=== PATIENT | female | born 1995 | race Caucasian/White ===

== ENCOUNTER 2023-06-04 09:18 | Outpatient (AMB) | payer OTHER, SELFPAY ==
[2023-06-04 10:00] VITALS: BP 90/56; BMI 26.1
--- NOTE | 2023-06-04 10:00 | MHC.OFFVIS ---
Intake Vital Signs 06/04/23 10:00 Height 5 ft 5 in Weight 157 lb BMI 26.1 BP 90/56 L Intake Visit Reasons: Preg Consult Master Planner Required: Yes Master Planner Language: Teacher Of Family And Consumer Science Name: Conor [id number] Information Interpreted: non-clinical & clinical Allergies aspirin Allergy (Unknown, Verified 06/04/23 10:03) Unknown Penicillins Allergy (Unknown, Verified 06/04/23 10:03) Unknown Is last menstrual period known: Yes Last menstrual period: 03/23/23 HPI HPI Comments History of Present Illness Details Patient presents for a consultation. , LMP: known, and regular 04/12/23. She reports her menses was normal & regular prior to . She denies any complications in her current . Reports nausea no vomiting. Able to tolerate fluids. Does not take PNV. Denies any bleeding or pelvic pain. COUNTS INCLUDE 234 BEDS AT THE [facility] Social History Alcohol intake: never Patient Tobacco Use Status: Never used Tobacco Sexual orientation: Straight/Heterosexual Gender identity: Female Female Reproductive History Menstrual Date of last menstrual period: 03/23/23 Total pregnancies: 3 Full term: 2 Number of Living Children: 2 Review of Systems Const All systems reviewed & are unremarkable except as noted in HPI and below Physical Exam Vital Signs: Last Vital Signs BP 90/56 L 06/04/23 10:00 BMI result Body Mass Index 26.1 Const General: cooperative, healthy appearing, no acute distress and acute distress Results AMB Test Urine AMB Test Urine Positive Last Edit by FIDE Mcgill on 06/04/23 10:10 Results Reviewed Results Reviewed: Laboratory Last Values Tst Clinic Positive 06/04/23 10:09 Assessment & Plan Assessment & Plan (1) Encounter for supervision of normal , unspecified, first trimester: Code(s): Z34.91 - Encounter for supervision of normal , unspecified, first trimester Plan: Patient presents ~7.5 weeks , with a current estimated due date of 12/28/23. Maintaining a healthy lifestyle including a well balanced diet, staying hydrated, and PNVs. All of her questions and concerns were addressed to the best of my ability US, HCG & screening. PNVs ordered. She will follow up for an US review and plan of care when completed. Advised to call if there is any bleeding or pelvic pain. Advised to call if unable to keep any fluids down. Orders: Orders US OB limited Today N92.6 - Irregular menstruation, unspecified, Z34.90 - Encounter for supervision of normal , unspecified, unspecified trimester AMB HCG Urine Test Today Z32.01 - Encounter for test, result positive Medications: New PNV,calcium 85-gkfo-lrveb acid 27 mg iron- 1 mg ( Vitamins Plus Low Iron) 1 tab PO DAILY 90 tabs 4RF Coding Level of Care Code New Pt Level 3 (90703) Diagnoses Encounter for supervision of normal , unspecified, first trimester Z34.91
== END 2023-06-04 10:34 | disposition home or self-care (01) ==
PROVIDERS: Visit Provider Advanced Practice Midwife
DX: Z34.91 Encounter for supervision of normal pregnancy, unspecified, first trimester (principal); Z32.01 Encounter for pregnancy test, result positive
CPT/HCPCS: 99203

== ENCOUNTER → 2023-06-04 09:18 | Outpatient (BNVA) | payer OTHER, SELFPAY | PROVIDERS: Visit Provider Advanced Practice Midwife | DX: Z34.81 Encounter for supervision of other normal pregnancy, first trimester (principal); Z3A.01 Less than 8 weeks gestation of pregnancy | CPT/HCPCS: 81025; 99202 ==

== ENCOUNTER 2023-06-05 12:06 | Outpatient (REF) | payer OTHER, SELFPAY ==
--- NOTE | ~2023-06-05 | US_ITS ---
EXAMINATION: US OBSTETRICAL ULTRASOUND CLINICAL INFORMATION: Supervision of normal COMPARISON: None available. LMP: 03/23/2023. Gestational age by maternal dates is 7 weeks 5 days. Estimated date of delivery by maternal dates is 01/17/2024. TECHNIQUE: Sonographic evaluation of the uterus and adnexa. Permanent documented images obtained. FINDINGS: There is a single intrauterine gestational sac with visible yolk sac, embryo/fetus, and cardiac activity. There is no significant subchorionic hemorrhage or hematoma. HR: 152 beats per minute. CRL (crown rump length): 1.10 cm (7 weeks 2 days +/- 4 days). DAVID (estimated date of delivery): 01/20/2024 +/- 4 days. MATERNAL ADNEXA: The right maternal ovary measures 2.5 x 1.2 x 1.9 cm. The left maternal ovary measures 2.8 x 1.8 x 2.3 cm. Corpus luteum cyst measuring 2.3 x 1.5 x 1.8 cm is seen. There is no significant maternal adnexal mass. No maternal pelvic ascites. US/US OB <= 14 weeks fetus IMPRESSION: 1. Single intrauterine gestation with ultrasound gestational age of 7 weeks 2 days +/- 4 days. 2. Estimated date of delivery is 01/20/2024 +/- 4 days. 3. No maternal adnexal mass or pelvic ascites.
== END 2023-06-05 12:07 | disposition home or self-care (01) ==
LOC: HO.US 12:06
PROVIDERS: Visit Provider Advanced Practice Midwife
DX: Z34.91 Encounter for supervision of normal pregnancy, unspecified, first trimester (principal); Z3A.01 Less than 8 weeks gestation of pregnancy
CPT/HCPCS: 76801

== ENCOUNTER 2023-06-09 09:35 | Outpatient (AMB) | payer OTHER, SELFPAY ==
--- NOTE | 2023-06-09 09:46 | MHC.OFFVISPN ---
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 Information Interpreted: non-clinical & clinical Allergies aspirin Allergy (Unknown, Verified 07/16/23 05:32) Unknown Penicillins Allergy (Unknown, Verified 07/16/23 05:32) Unknown Medication List - Last Reconciled 06/09/23 by Niecy Muñiz LPN PNV,calcium 25-wtdx-swjwk acid 27 mg iron- 1 mg ( Vitamins Plus Low Iron) 1 tab PO DAILY Is last menstrual period known: Yes Last menstrual period: 04/12/23 Post menopausal: No Patient : Yes Do you need a note to return to daycare/school/sports/work: No PFSH Social History Household Members: Significant Other and Children Both parents involved: Yes Housing: Apartment Alcohol intake: never Patient Tobacco Use Status: Never used Tobacco Agree to transfusion: Yes Sexual orientation: Straight/Heterosexual Gender identity: Female Female Reproductive History Menstrual Age of Menarche: 14 Duration of menses: 6-7 days Date of last menstrual period: 04/12/23 control method: none Total pregnancies: 3 Full term: 2 Premature: 0 Number of Living Children: 2 Ab induced: 0 Ab spontaneous: 0 Ectopics: 0 Multiple births: 0 History of abnormal pap smear: No History of STI: No History History 3 Elective abortions 0 Para 2 Spontaneous abortions 0 Hx # Term Pregnancies 2 Ectopic pregnancies 0 Hx # Pregnancies 0 Multiple births 0 Past Pregnancies Del. Date GA/Weeks Outcome Route Wt Inf Gender Labor Alysia Anesthesia Location Provider Complicate 07/28/14 40 live - full term 6 lb 5 oz Male 6.5 hours none [place] none 05/19/19 40 live - full term 6 lb 7 oz Male 7 hrs none [place] none Education First Trimester Education Checklist Plans/Education - by Trimester Counseled: Yes HIV and other routine tests: discussed Infectious disease exposure: chicken pox immunity discussed, hepatitis risk discussed and tuberculosis exposure discussed Influenza vaccine: discussed Nutrition and weight gain counseling: special diet: discussed Sexual activity: discussed Exercise: discussed Tobacco use: No Smoking counseling: discussed Alcohol use: No Substance use: No Substance use (Ask, Advise, Assess, Assist, and Arrange): discussed Environmental/home/work hazards: discussed Domestic violence: discussed Travel: discussed Seatbelt use: discussed Toxoplasmosis precautions (cats/raw meat): discussed Childbirth education/discussion: symptoms education/discussion Risk factors identified by history: discussed Testing education: cystic fibrosis testing education done, sickle cell testing education done, thalassemia testing education done and group B strep education danger signs: Yes education packet: Child education class information, symptoms, vitamins and iron, diet and weight gain, fish and mercury intake, listeriosis prevention, caffeine use, eating disorder history, exercise and activity, work issues, sexual activity, x-ray exposure, medication use, toxoplasmosis precautions, sauna/hot tub use, dental care and HIV education and counseling Mental health: discussed Anticipated course of care: discussed Indications for ultrasound: discussed Health center information: nature of practice discussed, personnel described, visit schedule reviewed, no show policy reviewed, ultrasounds policy reviewed, coverage 24 hours a day, participation of father in care and office visits and signs of miscarriage reviewed Questionnaire History History : 3 Visit DAVID Calculator Estimated Delivery Date Method Current WG Current Estimate 01/18/24 Ultrasound #1 14w 5d Other Estimates 01/17/24 LMP (Certain) 14w 6d Expected Delivery Route/Plan Vaginal delivery Specific Issues/Plans 28 Yr. old G 3 P 2 EDC: 01/17/24 Blood type: O positive Problem List: 1. Testing: Panorama/and or First Tri screen: risk NT scan: 06/30/23-pending results... AFP: FAS: Glucose: 28 wk glucose: CBC 1st Tri: 13/39.4 28 wk. 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 Visit assisted with the teletypesetter monitor services. 11.2wk. OBPE. Taking PNV, Doing well with no concerns. Good appetite, stays well hydrated. Denies any LOF, VB, abd. pain, or urinary symptoms. Reviewed: VB, abdominal/ pelvic pain when to seek emergent care. Rx for PNV sent in again. Encouraged a healthy well balanced diet, regular walking/exercise in . Hydrate well, 8-10 glasses of water daily. Flu vaccine today. NT results pending. RTO 4. Visit Date: 06/09/23 Last Updated by: Niecy Muñiz LPN Leidy is here today for her Nurse intake. with SP teletypesetter monitor Tierney, ID # [id number]. . LMP 04/12/23EDD 01/18/24. DAVID by u/s on 06/05/23= DAVID 01/20/24. Pt reports very little nausea, she is able to eat and drink without any problems. She delivered both of her boys in [place], she denies any problems with her pregnancies or deliveries,. and breast fed both boys She lives with her S.O. and their children. Pt is aware she will be delivering at [facility], and transferred if becomes High risk at any point. Discussed with pt NT u/s and genetic testing,that will be done at [facility]. Discussed labs including cf testing and UDS. Discussed with pt, healthy food choices, frozen veggies vs canned, decrease carb intake, such as rice and pasta, avoid sugary drinks, increase H2O to 7-10 glasses daily. Discussed with pt how to reach mail caller MD after hours. packet given to pt in SP. She is aware to call with any problems or concerns. Pt was brought to manager front office for scheduling OB PE. Initial Infection History & Risk Profile History of STDs: No HIV risk evaluation: low risk Hepatitis B risk evaluation: low risk Patient or partner has history of Genital Herpes: No Varicella/chicken pox status: unknown Genetic Screening & Raw Material Handler Symptoms since LMP: nausea Genetic Screening/Teratology Counseling - Includes patient, baby's father, or anyone in either family with: 1. Patient's age 35 years or older as of estimated date of delivery: No 2. Thalassemia (T[place], Nepalese, Mediterranean, or Background); MCV less than 80: No 3. Neural Tube Defect (Meningomyelocele, Spina Bifida, or Anencephaly): No 4. Congenital Heart Defect: No 5. Down Syndrome: No 6. Joel-Sachs (Ashkenazi Restorationist, Cajun, Stateless [place]): No 7. Meseret Disease (Ashkenazi Restorationist): No 8. Familial Dysautonomia (Ashkenazi Restorationist): No 9. Sickle Cell Disease or Trait (): No 10. Hemophilia or other blood disorders: No 11. Muscular Dystrophy: No 12. Cystic Fibrosis: No 13. Curly's Chorea: No 14. Intellectual disability/Autism: No 15. Other inherited genetic or chromosomal disorder: No 16. Maternal Metabolic Disorder (EG,TYPE 1 Diabetes, PKU): No 17. Patient or baby's father had a child with defects not listed above: No 18. Recurrent loss or a stillbirth: No 19. Medications (including supplements, vitamins, herbs or otc drugs)/illicit/recreational drugs/alcohol since last menstrual period: No 20. Any other: No Infection History 1. Live with someone with TB or exposed to TB: No 2. Rash or viral illness since last menstrual period: No 3. Hepatitis B,C: No Other (see comments) Comments: no STI'S Source: [employer] Coding Level of Care Code Established Pt Robles Patient Type Established Medical Decision Making Low Complexity Diagnoses Encounter for supervision of other normal in first trimester Z34.81 Normal : other normal Time Spent (min) 55
[2023-06-09 09:47] VITALS: BMI 26.0
== END 2023-06-09 10:38 | disposition home or self-care (01) ==
PROVIDERS: Visit Provider Advanced Practice Midwife
DX: Z34.81 Encounter for supervision of other normal pregnancy, first trimester (principal)
CPT/HCPCS: 25942

== ENCOUNTER 2023-06-09 09:35 | Outpatient (REF) | payer OTHER, SELFPAY ==
[2023-06-09 11:49] LABS: Hematocrit 39.4 % (37.0-47.0); Mean Corpuscular Hemoglobin 28.6 pg (27.0-33.0); Mean Corpuscular Volume 86.6 fL (80.0-98.0); Mean Platelet Volume 10.7 fL (9.4-12.3); Platelet Count 356 X10*3/uL (160-400); Red Blood Count 4.55 X10*6/uL (4.20-5.50); Red Cell Distribution Width 13.8 % (11.0-16.0); White Blood Count 12.3 X10*3/uL (4.8-10.8)
[2023-06-09 12:53] LABS: Amphetamine Screen Urine Not Detected (Not Detect); Barbiturates, Urine Not Detected (Not Detect); Benzodiazepines Screen Urine Not Detected (Not Detect); Cannabinoid Screen Urine Not Detected (Not Detect); Cocaine Screen Urine Not Detected (Not Detect); Fentanyl, urine Not Detected (Not Detect); Opiate Screen Urine Not Detected (Not Detect); Phencyclidine Screen Urine Not Detected (Not Detect)
[2023-06-10 03:57] LABS: Syphilis Screen Nonreactive (Nonreactive)
[2023-06-10 04:22] LABS: HBsAGNum1 0.31 S/CO (0.00-0.99); HIV AB/AG Nonreactive (Nonreactive); HIV Num 1 0.04 S/CO (0.00-0.99); Hepatitis B Surface Antigen Negative (Negative); ~HepC Num1 0.17 S/CO (0.00-0.79); ~Hepatitis C Antibody Nonreactive (Nonreactive)
[2023-06-10 21:37] LABS: Rubella IgG Antibody 2.54 Index
[2023-06-20 18:59] LABS: CF Ethnicity NG; Cystic Fibrosis NEGATIVE (NEGATIVE)
== END 2023-06-09 09:36 | disposition home or self-care (01) ==
LOC: HO.LAB 09:35
PROVIDERS: Visit Provider Advanced Practice Midwife
DX: Z34.81 Encounter for supervision of other normal pregnancy, first trimester (principal); Z3A.08 8 weeks gestation of pregnancy
CPT/HCPCS: 80307; 81220; 85027; 86762; 86780; 86787; 86803; 86850; 86900; 87086; 87340; 87389; 99212

== ENCOUNTER 2023-07-01 09:00 | Outpatient (REF) | payer OTHER, SELFPAY ==
[2023-07-02 06:43] LABS: CT PCR NOT DETECTED (Not Detect.); NG PCR NOT DETECTED (Not Detect.)
== END 2023-07-01 09:01 | disposition home or self-care (01) ==
LOC: HO.LNP 09:00
PROVIDERS: Visit Provider Advanced Practice Midwife
DX: Z34.91 Encounter for supervision of normal pregnancy, unspecified, first trimester (principal); Z23 Encounter for immunization
CPT/HCPCS: 0353U; 81003; 88142; 90471; 90686; 99212

== ENCOUNTER 2023-07-01 09:00 | Outpatient (AMB) | payer OTHER, SELFPAY ==
[2023-07-01 09:17] VITALS: BP 104/54; BMI 26.1
--- NOTE | 2023-07-01 09:17 | MHC.OFFVISPN ---
Intake Vital Signs 07/01/23 09:17 Height 5 ft 5 in Weight 157 lb BMI 26.1 BP 104/54 L Intake Visit Reasons: OBPE Piping Drafter Required: Yes Piping Drafter Language: Manufacturing Maintenance Technician Name: Marilyn Hernandez Information Interpreted: non-clinical & clinical Front End Specialist: Front End Specialist Present (Treva) Allergies aspirin Allergy (Unknown, Verified 07/01/23 09:23) Unknown Penicillins Allergy (Unknown, Verified 07/01/23 09:23) Unknown Is last menstrual period known: Yes Last menstrual period: 04/12/23 Post menopausal: No Patient : Yes PFSH Social History Household Members: Significant Other and Children Both parents involved: Yes Housing: Apartment Alcohol intake: never Patient Tobacco Use Status: Never used Tobacco Agree to transfusion: Yes Sexual orientation: Straight/Heterosexual Gender identity: Female Female Reproductive History Menstrual Age of Menarche: 14 Date of last menstrual period: 04/12/23 control method: none Total pregnancies: 3 Full term: 2 Number of Living Children: 2 History History 3 Elective abortions 0 Para 2 Spontaneous abortions 0 Hx # Term Pregnancies 2 Ectopic pregnancies 0 Hx # Pregnancies 0 Multiple births 0 Past Pregnancies Del. Date GA/Weeks Outcome Route Wt Inf Gender Labor Alysia Anesthesia Location Provider Complicate 07/28/14 40 live - full term 6 lb 5 oz Male 6.5 hours none [place] none 05/19/19 40 live - full term 6 lb 7 oz Male 7 hrs none [place] none Questionnaire History History : 3 Mills Depression Mills Depression Scale I have been able to laugh and see the funny side of things: As much as I always could I have looked forward with enjoyment to things: As much as I ever did I have blamed myself unnecessarily when things went wrong: No, never I have been anxious or worried for no reason: No, not at all I have felt scared of panicky for no very good reason at all: No, not at all Things have been getting on top of me: No, most of the time I have coped quite well I have been so unhappy that I have had difficulty sleeping: No, not at all I have felt sad or miserable: No, not at all I have been so unhappy that I have been crying: No, never The thought of harming myself has occurred to me: Never 1 PHQ Assessment Billing PHQ Assessment Tool: PHQ Assessment 68461 Visit DAVID Calculator Estimated Delivery Date Method Current WG Current Estimate 01/18/24 Ultrasound #1 11w 2d Other Estimates 01/17/24 LMP (Certain) 11w 3d Expected Delivery Route/Plan Vaginal delivery Specific Issues/Plans 28 Yr. old G 3 P 2 EDC: 01/17/24 Blood type: O positive Problem List: 1. Testing: Panorama/and or First Tri screen: risk NT scan: 06/30/23-pending results... AFP: FAS: Glucose: 28 wk glucose: CBC 1st Tri: 39.4 28 wk. 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 Visit assisted with the bias cutting machine operator vertical services. 11.2wk. OBPE. Taking PNV, Doing well with no concerns. Good appetite, stays well hydrated. Denies any LOF, VB, abd. pain, or urinary symptoms. Reviewed: VB, abdominal/ pelvic pain when to seek emergent care. Rx for PNV sent in again. Encouraged a healthy well balanced diet, regular walking/exercise in . Hydrate well, 8-10 glasses of water daily. Flu vaccine today. NT results pending. RTO 4. Visit Date: 06/09/23 Last Updated by: Niecy Muñiz LPN Leidy is here today for her Nurse intake. with SP bias cutting machine operator vertical Tierney, ID # [id number]. . LMP 04/12/23EDD 01/18/24. DAVID by u/s on 06/05/23= DAVID 01/20/24. Pt reports very little nausea, she is able to eat and drink without any problems. She delivered both of her boys in [place], she denies any problems with her pregnancies or deliveries,. and breast fed both boys She lives with her S.O. and their children. Pt is aware she will be delivering at [facility], and transferred if becomes High risk at any point. Discussed with pt NT u/s and genetic testing,that will be done at [facility]. Discussed labs including cf testing and UDS. Discussed with pt, healthy food choices, frozen veggies vs canned, decrease carb intake, such as rice and pasta, avoid sugary drinks, increase H2O to 7-10 glasses daily. Discussed with pt how to reach scallop binder MD after hours. packet given to pt in SP. She is aware to call with any problems or concerns. Pt was brought to javascript front end developer for scheduling OB PE. Review of Systems Const All systems reviewed & are unremarkable except as noted in HPI and below Reports as per HPI Eyes Reports no additional complaints ENT Reports no additional complaints Card Reports no additional complaints Resp Reports no additional complaints GI Reports as per HPI and Reports no additional complaints Reports as per HPI Musc Reports no additional complaints Skin/Breast Reports as per HPI Neuro Reports no additional complaints Psych Reports no additional complaints Endo Reports no additional complaints Kelvin/Lymph Reports no additional complaints Aller/Immun Reports no additional complaints Office Procedures Flu Questionnaire Does the patient have a severe egg allergy?: No Does the patient have severe life threatening allergies?: No Does the patient have a fever or illness today?: No Has the patient ever had Guillain-Livermore Syndrome?: No Has the patient ever had any past reaction to a flu shot?: No Results AMB Urinalysis, Automated UA Leukoctes 1 Dionicio/uL Last Edit by Treva Tejeda Avni on 07/01/23 10:07 UA Nitrite Negative Last Edit by Treva Tejeda [facility] on 07/01/23 10:07 UA Urobilinogen 0 mg/dL Last Edit by Treva Tejeda [facility] on 07/01/23 10:07 UA Protein 0 mg/dL Last Edit by Treva Tejeda [facility] on 07/01/23 10:07 UA pH 5.5 Last Edit by Treva Tejeda [facility] on 07/01/23 10:07 UA Blood 0 Rajinder/uL Last Edit by Treva Tejeda [facility] on 07/01/23 10:07 UA Specific [place] 1.030 Last Edit by Treva Tejeda [facility] on 07/01/23 10:07 UA Ketone Negative Last Edit by Treva Tejeda [facility] on 07/01/23 10:07 UA Bilirubin 0 mg/dL Last Edit by Treva Tejeda [facility] on 07/01/23 10:07 UA Glucose 0 mg/dL Last Edit by Treva Tejeda [facility] on 07/01/23 10:07 Immunizations flu vacc [id number] 6mos up(PF) 60 mcg(15 mcgx4)/0.5 mL IM syringe Performing Provider: Brunilda Stockton CNM Performing [facility] [facility] Administered by: Niecy Muñiz LPN on 07/01/23 10:18 Dose Route Admin Location Dispensed Lot Number Expiration Date [facility] Resident Care Provider 0.5 mL IM Right Deltoid 0.5 mL [id number] 01/18/24 24016-046-26 [employer] VIS Given Date VIS Provided VIS Publication Date 07/01/23 Single Vaccine 21 Eligibility Eligibility Date Funding Source Not [facility] Eligible 07/01/23 Private Exam Const Constitutional General: cooperative, healthy appearing, no acute distress, well developed and alert Orientation/consciousness: patient oriented x3 HENND Head: normal to inspection Eyes General: appearance normal, both eyes and all related structures Neck Neck: normal visual inspection Thyroid: Thyroid normal Chest Chest palpation & inspection: normal inspection of the chest and other (no puckering, dimpling, peau de orange, retraction, discharge, masses) Breast/axilla inspection: normal inspection of the breasts Breast/axilla palpation: normal palpation of the breasts Resp Effort & Inspection: normal respiratory effort Auscultation: clear to auscultation bilaterally Cardio Rate: regular rate Rhythm: regular rhythm GI Inspection (GI): normal to inspection Palpation (GI): Soft to palpation General Exam: Yes bladder normal to palpation External Female Exam: normal external appearance and normal appearance of the urethra Urethra: normal appearance of the urethra Speculum exam - vagina: normal appearance of the vagina and normal discharge Speculum Exam - Cervix: normal appearance of the cervix and Other cervical findings present (bled w/pap) Bimanual exam- vagina & uterus: normal bimanual exam, normal palpation, uterine size normal, bladder normal to palpation, normal palpation, non-tender and enlarged (11 wk size, FHR 160) Bimanual Exam- Adnexa, other: no masses Skin General skin exam: no rashes or lesions noted Rashes: no rashes Neuro Cognition (Neuro): normal cognition Extrem General: normal to inspection Psych Attitude: cooperative Thought process: Normal thought process present Results Reviewed Results Reviewed: Laboratory Last Values Urine pH (Auto) 5.5 07/01/23 10:06 Specific [place] (Auto) 1.030 07/01/23 10:06 Urine Protein (Auto) 0 mg/dL 07/01/23 10:06 Glucose (UA)(Auto) 0 mg/dL 07/01/23 10:06 Urine Ketones (Auto) Negative 07/01/23 10:06 Urine Blood (Auto) 0 Rajinder/uL 07/01/23 10:06 Urine Nitrite (Auto) Negative 07/01/23 10:06 Urine Bilirubin (Auto) 0 mg/dL 07/01/23 10:06 Urine Urobilinogen (Auto) 0 mg/dL 07/01/23 10:06 Leukocyte Esterase (Auto) 1 Dionicio/uL 07/01/23 10:06 Coding Level of Care Code Gipsy Assessment & Plan Assessment & Plan Orders: Orders Influenza [id number] Immunization Today Z34.91 - Encounter for supervision of normal , unspecified, first trimester CT NG by PCR Today Z34.91 - Encounter for supervision of normal , unspecified, first trimester AMB Urinalysis Automated Today Z34.91 - Encounter for supervision of normal , unspecified, first trimester Pap Smear Today Z12.4 - Encounter for screening for malignant neoplasm of cervix Medications: Refilled PNV,calcium 37-jqxi-zordr acid 27 mg iron- 1 mg ( Vitamins Plus Low Iron) 1 tab PO DAILY 90 tabs 4RF
== END 2023-07-01 10:27 | disposition home or self-care (01) ==
PROVIDERS: Visit Provider Advanced Practice Midwife
DX: Z34.91 Encounter for supervision of normal pregnancy, unspecified, first trimester (principal)
CPT/HCPCS: 25942

== ENCOUNTER 2023-07-16 05:14 | Emergency (ER) | payer OTHER, SELFPAY ==
[2023-07-16 05:15] VITALS: BP 119/63; PULSE 89; RESP 16; TEMP 36.2; O2SAT 96; BMI 27.1
[2023-07-16 05:59] LABS: MANUAL DIFF FLAG NO
[2023-07-16 06:00] LABS: Basophils Absolute Auto 0.1 X10*3/uL (0.0-0.2); Basophils Percent Auto 0.4 % (0-2); Eosinophils Absolute Auto 0.1 X10*3/uL (0.0-0.4); Eosinophils Percent Auto 0.6 % (0-4); Hematocrit 35.6 % (37.0-47.0); Hemoglobin 12.2 g/dl (12.0-16.0); Imm Gran Abs Auto 0.04 X10*3/uL (0.00-0.03); Imm Gran Pct Auto 0.3 % (0.0-0.4); Lymphocytes Percent Auto 14.8 % (20-40); Mean Corpuscular HGB Conc 34.3 g/dl (31.0-35.0); Mean Corpuscular Hemoglobin 29.5 pg (27.0-33.0); Mean Platelet Volume 9.9 fL (9.4-12.3); Monocytes Absolute Auto 0.8 X10*3/uL (0.1-1.2); Neutrophils Absolute Auto 10.3 x10*3/uL (2.0-8.3); Neutrophils Percent Auto 77.9 % (45-73); Platelet Count 328 X10*3/uL (160-400); Red Blood Count 4.14 X10*6/uL (4.20-5.50); Red Cell Distribution Width 13.5 % (11.0-16.0); White Blood Count 13.2 X10*3/uL (4.8-10.8)
[2023-07-16 06:18] LABS: Alanine Aminotransferase 12 U/L (0-31); Albumin Level 3.7 g/dL (3.5-5.0); Alkaline Phosphatase 70 U/L (39-117); Anion Gap 14 (12-20); Aspartate Amino Transferase 15 U/L (5-31); Bilirubin Total 0.2 mg/dL (0.0-1.0); Blood Urea Nitrogen 10 mg/dL (9-16); Calcium 9.2 mg/dL (8.4-10.2); Carbon Dioxide 21 mmol/L (22-29); Chloride 106 mmol/L (96-108); Creatinine Clr Calc Pharmacy 120.2; Estimated Glomerular Filt Rate > 60; Glucose Random 103 mg/dL (60-115); Lipase 16 U/L (8-78); Potassium 3.9 mmol/L (3.3-5.1); Sodium 137 mmol/L (135-145); Total Protein 7.5 g/dL (6.5-8.0)
[2023-07-16 06:27] VITALS: BP 108/63; PULSE 81; RESP 16; TEMP 36.6; O2SAT 98
[2023-07-16 06:37] LABS: Influenza A PCR NEGATIVE (Negative); Influenza B PCR NEGATIVE (Negative); Resp Syncy Virus RNA Qual PCR NEGATIVE (Negative); SARS COV2 PCR INHOUSE POSITIVE (Negative)
--- NOTE | 2023-07-16 06:39 | ED_ITS ---
HPI - General Adult General Chief complaint: General Medical Stated complaint: gen med Time Seen by Provider: 07/16/23 06:38 Source: patient and administrative support manager Mode of arrival: ambulatory Limitations: language barrier History of Present Illness HPI narrative: Patient is a 28 year old assigned female at with a history of current presenting to the emergency department today with nausea and vomiting. Patient states that over the last few hours she has had increased nausea and vomiting. Patient denies any vaginal bleeding, vaginal discharge, dizziness, lightheadedness, abdominal pain, fever, chills, blurry vision, double vision, loss of vision, chest pain, difficulty breathing, shortness of breath, back pain, night sweats, pain with urination, increased urinary frequency, increased urinary urgency, blood in her urine or stool, syncope or a near syncopal episode, recent trauma or falls, bowel incontinence, bladder incontinence, bowel retention, bladder retention, or any other complaints at this time. Onset (ago): hour(s) Severity: mild Severity scale (1-10): 2 Relieving factors: none Exacerbating factors: none Associated symptoms: nausea/vomiting Treatments prior to arrival: none Related Data Previous Rx's Medication Instructions Recorded vitamin with calcium 1 tab PO DAILY #90 tabs 07/01/23 no.72-iron 27 mg-folic acid 1 mg tablet ( Vitamins Plus Low Iron) cefpodoxime 100 mg tablet 100 mg PO BID 7 days #14 tabs 07/16/23 ondansetron 4 mg disintegrating 4 mg PO Q8H 3 days #9 tabs 07/16/23 tablet Allergies Allergy/AdvReac Type Severity Reaction Status Date / Time aspirin Allergy Unknown Unknown Verified 07/16/23 05:32 Penicillins Allergy Unknown Unknown Verified 07/16/23 05:32 Review of Systems 2 Constitutional: Constitutional: Reports no additional constitutional complaints, Denies chills, Denies fever(s) and Denies night sweats Eyes: Eyes: Reports no additional eye complaints, Denies blurry vision, Denies change in vision, Denies diplopia, Denies eye discharge, Denies loss of vision and Denies eye pain ENT: Denies dizziness Cardiovascular: Cardiovascular: Reports no additional cardiovascular complaints, Denies chest pain, Denies lightheadedness, Denies Loss of Consciousness and Denies dyspnea Respiratory: Respiratory: Reports no additional respiratory complaints and Denies dyspnea Gastrointestinal: Gastrointestinal: Reports no additional gastrointestinal complaints, Denies abdominal pain, Denies melena, Denies hematochezia, Denies change in bowel habits, Denies change in stool character, Reports nausea and Reports vomiting Genitourinary: Genitourinary: Denies hematuria, Denies urinary frequency, Denies dysuria, Denies urinary incontinence, Denies urinary hesitancy and Denies urinary urgency Musculoskeletal: Musculoskeletal: Reports no additional musculoskeletal complaints, Denies numbness and Denies tingling Neurologic: Denies dizziness, Denies loss of vision, Denies numbness and Denies tingling Psychiatric: Psychiatric: Reports no additional psychiatric complaints Endocrine: Endocrine: Reports no additional endocrine complaints Hematologic/Lymphatic: Hematologic/Lymphatic: Reports no additional hematologic/lymphatic complaints Allergic/Immunologic: Allergic/Immunologic: Reports no additional allergic/immunologic complaints PMFSH Past Medical History Attestation statement: The following information was validated with the patient. Source: old records reviewed and nursing notes reviewed Social History Social History Household Members: Significant Other and Children Housing: Apartment Alcohol intake: never Patient Tobacco Use Status: Never used Tobacco Agree to transfusion: Yes Advance Directives: No Advance Directives Information Provided: No Sexual orientation: Straight/Heterosexual Gender identity: Female Physical Exam ED Vital Signs: Vital Signs - 24 hr 07/16/23 05:15 07/16/23 06:27 Temperature 97.1 F 97.8 F Pulse Rate 89 81 Respiratory Rate 16 16 Blood Pressure 119/63 108/63 Pulse Oximetry 96 98 Oxygen Delivery Method Room Air Room Air BMI result Body Mass Index 27.1 Const General: cooperative, no acute distress, alert and awake Nutritional Appearance: well nourished Orientation/consciousness: patient oriented x3 Limitations: no limitations HENMT Head: Yes normal to inspection and Yes atraumatic Ears: hearing grossly normal bilaterally and external ears normal General nose exam: Normal external nose present, no nasal discharge noted and no epistaxis Face and sinus: Yes normal facial exam, No abrasion and No laceration Mouth: Normal oral and palatal mucosa present, no drooling and no muffled voice Eyes General: appearance normal, both eyes and all related structures Periorbital: periorbital findings normal Eyelids: Yes eyelids normal Conjunctivae: conjunctivae normal Pupils: Equal, round and reactive pupils present EOM: EOMs intact bilaterally Neck Neck: Yes normal visual inspection, Yes full ROM and Yes no lymphadenopathy Chest Chest palpation & inspection: normal inspection of the chest Resp Effort & Inspection: normal respiratory effort and able to speak in complete sentences GI Inspection: Yes normal to inspection Palpation (GI): Soft to palpation, not firm, nontender and no guarding Neuro General: patient oriented x3 and moves all extremities Cranial nerves: Yes Equal, round and reactive pupils present Cognition (Neuro): normal cognition Motor exam (neuro): 5/5 motor strength present throughout Sensory Exam: Normal double simultaneous stimulation for sensation Coordination: [id number] test normal Extrem General: Yes normal to inspection, Yes full ROM and Yes capillary refill normal Psych Appearance: grossly normal Mental Status: mental status grossly normal Affect: normal affect Attitude: cooperative Thought process: Normal thought process present Thought content: Normal thought content present Insight: Good insight present (Psych) Medications Administered Discontinued Medications Generic Name Dose Route Start Last Admin Trade Name Freq PRN Reason Stop Dose Admin Ondansetron HCl 4 mg 07/16/23 07:20 07/16/23 07:26 Ondansetron Odt 4 Mg Tab.Rapdis TRANSLINGU 07/16/23 07:21 4 mg ONCE ONE Administration Medical Decision Making Medical Decision Making MDM Narrative: Patient is a 28 year old assigned female at with a history of current first trimester presenting to the emergency department today with nausea and vomiting. Patient's physical exam was unremarkable. Patient's blood work was unremarkable. Patient's urine showed a possible urinary tract infection, given patient's current status, will treat. Patient's COVID-19 test was positive. I explained my physical exam findings as well as all test results to the patient. I answered all questions asked by the patient. I stressed the importance of the patient taking her medication as prescribed. I stressed the importance of the patient following up with her primary care provider and her OBGYN. I stressed the importance of the patient returning to the emergency department immediately if her symptoms were to worsen or if she were to develop any dizziness, shortness of breath, difficulty breathing, chest pain, blurry vision, loss of vision, nausea, vomiting, abdominal pain, fever, chills, back pain, or any other complaints. Patient verbalized agreement and understanding with this treatment plan and discharge. Differential Diagnosis Differential Diagnoses: The differential diagnosis associated with the presentation includes COVID-19 UTI Admission/Observation Consideration of admission/observation: Escalation of care including admission/observation considered Patient would have been admitted to the hospital had her work up had any findings where hospital admission was appropriate and her clinical presentation warranted hospital admission. Lab Data [facility] Lab Attestation statement: I reviewed the patient's lab results. My interpretation of these results are in the [facility] Rationale portion of this note. 07/16/23 05:54 07/16/23 05:54 Labs: Lab Results 07/16/23 07/16/23 Range/Units 05:54 06:29 WBC 13.2 H (4.8-10.8) X10*3/uL RBC 4.14 L (4.20-5.50) X10*6/uL Hgb 12.2 (12.0-16.0) g/dl Hct 35.6 L (37.0-47.0) % MCV 86.0 (80.0-98.0) fL MCH 29.5 (27.0-33.0) pg MCHC 34.3 (31.0-35.0) g/dl RDW 13.5 (11.0-16.0) % Plt Count 328 (160-400) X10*3/uL MPV 9.9 (9.4-12.3) fL Immature Gran % (Auto) 0.3 (0.0-0.4) % Neut % (Auto) 77.9 H (45-73) % Lymph % (Auto) 14.8 L (20-40) % [place] % (Auto) 6.0 (2-11) % Eos % (Auto) 0.6 (0-4) % Baso % (Auto) 0.4 (0-2) % Lymph # (Auto) 2.0 (1.2-4.9) X10*3/uL [place] # (Auto) 0.8 (0.1-1.2) X10*3/uL Eos # (Auto) 0.1 (0.0-0.4) X10*3/uL Baso # (Auto) 0.1 (0.0-0.2) X10*3/uL Abs Immat Gran (auto) 0.04 H (0.00-0.03) X10*3/uL Absolute Neuts (auto) 10.3 H (2.0-8.3) x10*3/uL Absolute Nucleated RBC 0.000 (0.0-0.012) X10*3/uL Nucleated RBC % (auto) 0.0 (0.0-0.2) /100WBC Sodium 137 (135-145) mmol/L Potassium 3.9 (3.3-5.1) mmol/L Chloride 106 (96-108) mmol/L Carbon Dioxide 21 L (22-29) mmol/L Anion Gap 14 (12-20) BUN 10 (9-16) mg/dL Creatinine 0.67 (0.5-1.4) mg/dL Estim Creat Clear Calc 120.2 Estimated GFR > 60 Random Glucose 103 (60-115) mg/dL Calcium 9.2 (8.4-10.2) mg/dL Total Bilirubin 0.2 (0.0-1.0) mg/dL AST 15 (5-31) U/L ALT 12 (0-31) U/L Alkaline Phosphatase 70 (39-117) U/L Total Protein 7.5 (6.5-8.0) g/dL Albumin 3.7 (3.5-5.0) g/dL Lipase 16 (8-78) U/L Urine Color Yellow Urine Appearance Cloudy Urine pH 5.5 (5.0-9.0) Ur Specific [place] >= 1.030 H (1.005-1.025) Urine Protein Negative (Neg-Trace) mg/dL Urine Glucose (UA) Negative (Negative) mg/dL Urine Ketones Trace (Negative) mg/dL Urine Blood Negative (Negative) Urine Nitrite Negative (Negative) Ur Leukocyte Esterase Moderate (2+) H (Negative) Urine RBC 3-5 H (0-2) /HPF Urine WBC 6-10 H (0-5) /HPF Ur Squamous Epith Cells 11-20 (0-2) /HPF Urine Bacteria 4+ (None Seen) Hyaline Casts 3-5 (0-2) /LPF Influenza Type A (PCR) NEGATIVE (Negative) Influenza Type B (PCR) NEGATIVE (Negative) RSV RNA Qual (PCR) NEGATIVE (Negative) SARS-CoV-2 RNA (RT-PCR) POSITIVE A (Negative) Prescription Management I considered prescription management with: Antibiotic (patient prescribed an antibiotic to cover possible UTI) Discharge Plan Discharge Clinical Impression: COVID-19, UTI (urinary tract infection) Patient Disposition: Home, Self-Care Instructions: Urinary Tract Infection in (ED), COVID-19 (Coronavirus Disease 2019) (ED) Additional Instructions: Your urine appears to be infected, given you being , this must be treated. You have COVID-19, you must quarantine for 5 days. Follow up with your primary care provider and your OBGYN. Return to the emergency department immediately if your symptoms worsen or if you develop any dizziness, shortness of breath, difficulty breathing, chest pain, blurry vision, loss of vision, nausea, vomiting, abdominal pain, fever, chills, back pain, or any other complaints. Lopez orina parece estar infectada, dado que est? embarazada, esto debe tratarse. Tienes COVID-19, debes hacer cuarentena por 5 d?as. Nagi un seguimiento con lopez proveedor de atenci?n primaria y lopez obstetra. Regrese al departamento de emergencias inmediatamente si nolvia s?ntomas empeoran o si presenta mareos, dificultad para respirar, dificultad para respirar, dolor en el pecho, visi?n borrosa, p?rdida de la visi?n, n?useas, v?mitos, dolor abdominal, fiebre, escalofr?os, dolor de espalda o cualquier otras quejas. Prescriptions: New cefpodoxime 100 mg tablet 100 mg PO BID 7 Days Qty: 14 0RF Rx Instructions: must administer with a meal/food ondansetron 4 mg tablet,disintegrating 4 mg PO Q8H 3 Days Qty: 9 0RF No Action Vitamin Plus Low Iron 27 mg iron- 1 mg tablet 1 tab PO DAILY Qty: 90 4RF Referrals: [facility] Family Medicine [Provider Group] (Call to establish and follow up with a primary care provider. If you already have a primary care provider, please follow up with them. Llame para establecer y realizar un seguimiento con un proveedor de atenci?n primaria. Si ya tiene un proveedor de atenci?n primaria, nagi un seguimiento con ?l.) [facility] [Provider Group] (Call to establish and follow up with a primary care provider. If you already have a primary care provider, please follow up with them. Llame para establecer y realizar un seguimiento con un proveedor de atenci?n primaria. Si ya tiene un proveedor de atenci?n primaria, nagi un seguimiento con ?l.) [facility] [Provider Group] (Call to establish and follow up with a primary care provider. If you already have a primary care provider, please follow up with them. Llame para establecer y realizar un seguimiento con un proveedor de atenci?n primaria. Si ya tiene un proveedor de atenci?n primaria, nagi un seguimiento con ?l.) Stand Alone Forms: Work/School Release Interventions: ED Discharge Assessment Last Done: 07/16/23 07:25 Discharge Date/Time: 07/16/23 07:36 Print Language: [place]
[2023-07-16 06:40] LABS: Appearance Urine Cloudy; Color Urine Yellow; Glucose Urine UA Negative (Negative); Leukocyte Esterase Urine Moderate (2+) (Negative); Nitrite Urine Negative (Negative); PH 5.5 (5.0-9.0); Specific Gravity - Urine >= 1.030 (1.005-1.025); UMIC TRIGGER UACC YES; Urine Blood Negative (Negative); Urine Ketones Trace mg/dL (Negative); Urine Protein Negative (Neg-Trace)
[2023-07-16 06:42] LABS: Bacteria Urine 4+ (None Seen); UACC Culture Trigger YES
--- NOTE | 2023-07-16 06:43 | PC.NURSE ---
attempted to obtain HR, unable to at this time
[2023-07-16] MEDS: Ondansetron ODT 4 MG TAB.RAPDIS TRANSLINGU (07:26)
== END 2023-07-16 07:36 | disposition home or self-care (01) ==
PROVIDERS: Emergency Provider Emergency Medicine Emergency Medical Services
DX: O98.511 Other viral diseases complicating pregnancy, first trimester (principal); U07.1 COVID-19; O23.41 Unspecified infection of urinary tract in pregnancy, first trimester; N39.0 Urinary tract infection, site not specified; Z3A.00 Weeks of gestation of pregnancy not specified
CPT/HCPCS: 0241U; 36415; 80053; 81001; 83690; 85025; 87086; 99283; 99284

== ENCOUNTER 2023-07-31 09:08 | Outpatient (AMB) | payer OTHER, SELFPAY ==
[2023-07-31 09:21] VITALS: BP 110/52; BMI 27.8
--- NOTE | 2023-07-31 09:21 | A.OFFVISPN_ITS ---
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 Name: [id number] Accompanied by: Boyfriend Allergies aspirin Allergy (Unknown, Verified 07/31/23 09:28) Unknown Penicillins Allergy (Unknown, Verified 07/31/23 09:28) Unknown Is last menstrual period known: Yes Last menstrual period: 03/23/23 Post menopausal: No Patient : Yes PFSH Medical History Encounter for supervision of other normal , second trimester Social History Household Members: Significant Other and Children Both parents involved: Yes Housing: Apartment Alcohol intake: never Patient Tobacco Use Status: Never used Tobacco Agree to transfusion: Yes Sexual orientation: Straight/Heterosexual Gender identity: Female Female Reproductive History Menstrual Age of Menarche: 14 Date of last menstrual period: 03/23/23 control method: none Total pregnancies: 3 Full term: 2 Number of Living Children: 2 Date of last pap smear: 07/02/23 (unsatisfactory) History History 3 Elective abortions 0 Para 2 Spontaneous abortions 0 Hx # Term Pregnancies 2 Ectopic pregnancies 0 Hx # Pregnancies 0 Multiple births 0 Past Pregnancies Del. Date GA/Weeks Outcome Route Wt Inf Gender Labor Alysia Anesthesia Location Provider Complicate 07/28/14 40 live - full term 6 lb 5 oz Male 6.5 hours none [place] none 05/19/19 40 live - full term 6 lb 7 oz Male 7 hrs none [place] none Questionnaire History History : 3 Visit DAVID Calculator Estimated Delivery Date Method Current WG Current Estimate 01/18/24 Ultrasound #1 15w 4d Other Estimates 01/17/24 LMP (Certain) 15w 5d Expected Delivery Route/Plan Vaginal delivery Specific Issues/Plans 28 Yr. old G 3 P 2 EDC: 01/17/24 Blood type: O positive Problem List: 1. Testing: Panorama/and or First Tri screen: risk NT scan: 06/30/23-pending results... AFP: FAS: Glucose: 28 wk glucose: CBC 1st Tri: 13/39.4 28 wk. 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-?-?-?-?- Notes Visit Date: 07/31/23 Last Updated by: Brunilda Stockton CNM Note author: Brunilda Stockton CNM. 15.4wk. TOM. Taking PNV, Doing well with concerns: nausea, no vomiting. Denies any LOF, VB, abd. pain or urinary symptoms. Quickening noted. Partner in. Reviewed: NT and First screen. LOF/Ctx's/VB, when to seek emergent care. discomforts, self help measures. Rx for B6 sent in. Encouraged a healthy well balanced diet, regular walking/exercise in . Hydrate well, 8-10 glasses of water daily. FAS ordered-4wks RTO 4wks. Visit Date: 07/01/23 Last Updated by: Brunilda Stockton CNM OB Note author: Brunilda Stockton CNM. Visit assisted with the seed analyst services. 11.2wk. OBPE. Taking PNV, Doing well with no concerns. Good appetite, stays well hydrated. Denies any LOF, VB, abd. pain, or urinary symptoms. Reviewed: VB, abdominal/ pelvic pain when to seek emergent care. Rx for PNV sent in again. Encouraged a healthy well balanced diet, regular walking/exercise in . Hydrate well, 8-10 glasses of water daily. Flu vaccine today. NT results pending. RTO 4. Visit Date: 06/09/23 Last Updated by: Niecy Muñiz LPN Leidy is here today for her Nurse intake. with [facility] seed analyst Tierney, ID # [id number]. . LMP 04/12/23EDD 01/18/24. DAVID by u/s on 06/05/23= DAVID 01/20/24. Pt reports very little nausea, she is able to eat and drink without any problems. She delivered both of her boys in [place], she denies any problems with her pregnancies or deliveries,. and breast fed both boys She lives with her S.O. and their children. Pt is aware she will be delivering [place] [facility] and transferred if becomes High risk at any point. Discussed with pt NT u/s and genetic testing,that will be done at [facility]. Discussed labs including cf testing and UDS. Discussed with pt, healthy food choices, frozen veggies vs canned, decrease carb intake, such as rice and pasta, avoid sugary drinks, increase H2O to 7-10 glasses daily. Discussed with pt how to reach at home independent call center agent MD after hours. packet given to pt in [place]. She is aware to call with any problems or concerns. Pt was brought to front office assistant for scheduling OB PE. Coding Level of Care Code Blaine Assessment & Plan Assessment & Plan Orders: Orders US OB /maternal detail 4 Weeks Z34.82 - Encounter for supervision of other normal , second trimester Medications: New pyridoxine (vitamin B6) 25 mg PO TID PRN 90 tabs 0RF nausea and vomiting
== END 2023-07-31 09:43 | disposition home or self-care (01) ==
LOC: HO.HWS 09:08
PROVIDERS: Visit Provider Advanced Practice Midwife
DX: Z34.90 Encounter for supervision of normal pregnancy, unspecified, unspecified trimester (principal)
CPT/HCPCS: 25942

== ENCOUNTER → 2023-07-31 09:08 | Outpatient (BNVA) | payer OTHER, SELFPAY | PROVIDERS: Visit Provider Advanced Practice Midwife | DX: Z34.82 Encounter for supervision of other normal pregnancy, second trimester (principal); Z3A.15 15 weeks gestation of pregnancy | CPT/HCPCS: 99212 ==

== ENCOUNTER 2023-08-27 10:25 | Outpatient (AMB) | payer OTHER, SELFPAY ==
--- NOTE | 2023-08-27 10:27 | A.OFFVISPN_ITS ---
Intake Vital Signs 08/27/23 10:28 Height 5 ft 4 in Weight 168 lb BMI 28.8 BP 110/50 L Intake Visit Reasons: TOM Air Traffic Control Specialist Required: Yes Air Traffic Control Specialist Language: Machine Rough Rounder Name: Crescencio [id number] Information Interpreted: non-clinical & clinical Accompanied by: Spouse Allergies aspirin Allergy (Unknown, Verified 08/27/23 10:27) Unknown Penicillins Allergy (Unknown, Verified 08/27/23 10:27) Unknown Patient : Yes PFS Medical History Encounter for supervision of other normal , second trimester Social History Household Members: Significant Other and Children Both parents involved: Yes Housing: Apartment Alcohol intake: never Patient Tobacco Use Status: Never used Tobacco Agree to transfusion: Yes Sexual orientation: Straight/Heterosexual Gender identity: Female Female Reproductive History Menstrual Age of Menarche: 14 History History 3 Elective abortions 0 Para 2 Spontaneous abortions 0 Hx # Term Pregnancies 2 Ectopic pregnancies 0 Hx # Pregnancies 0 Multiple births 0 Past Pregnancies Del. Date GA/Weeks Outcome Route Wt Inf Gender Labor Alysia Anesthesia Location Provider Complicate 07/28/14 40 live - full term 6 lb 5 oz Male 6.5 hours none [place] none 05/19/19 40 live - full term 6 lb 7 oz Male 7 hrs none [place] none Visit DAVID Calculator Estimated Delivery Date Method Current WG Current Estimate 01/18/24 Ultrasound #1 19w 3d Other Estimates 01/17/24 LMP (Certain) 19w 4d Expected Delivery Route/Plan Vaginal delivery Specific Issues/Plans 28 Yr. old G 3 P 2 EDC: 01/17/24 Blood type: O positive Problem List: 1. Testing: Panorama/and or First Tri screen: risk NT scan: 06/30/23-pending results... AFP: FAS: Glucose: 28 wk glucose: CBC 1st Tri: 1339.4 28 wk. 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 Transportation: has own Labor, and Concerns: Labor support: Plan: Infant Feeding Plans: breast and bottle control: OB Visit Log Initial Weight: Not Recorded Date -?-?-?-?-?-?-?-?-?-?-?-?- EGA Weight Gest Week Fundal Ht Present FHR move Efface % Edema BP PrePreg We Weight GTT -?-?-?-?-?-?-?-?-?-?-?-?- Glucose LV Protein Blood Type 06/09/23 -?-?-?-?-?-?-?-?-?-?-?-?- 8w 1d 156 lb 4 oz 156 lb 4 oz -?-?-?-?-?-?-?-?-?-?-?-?- 07/01/23 -?-?-?-?-?-?-?-?-?-?-?-?- 11w 2d 157 lb 11 160 104/54 157 lb -?-?-?-?-?-?-?-?-?--?-?-?- 07/31/23 -?-?-?-?-?-?-?-?-?-?-?-?- 15w 4d 162 lb 15 150 110/52 162 lb -?-?-?-?-?-?-?-?-?-?-?-?- 08/27/23 -?-?-?-?-?-?-?-?-?-?-?-?- 19w 3d 168 lb 19 150 active 110/50 168 lb -?-?-?-?-?-?-?-?-?-?-?-?- Notes Visit Date: 08/27/23 Last Updated by: Brunilda Stockton CNM Note author: Brunilda Stockton CNM. 19.3wk. TOM. Taking PNV, Doing well with no concerns. Good appetite, stays well hydrated. Denies any LOF, VB, abd. pain or urinary symptoms. Pt. responds w/single word answers, partner in, no eye/verbal contact. Reviewed: PTL s/s-LOF/Ctx's/VB, when to seek emergent care. FM and when to call the office for further eval. Encouraged a healthy well balanced diet, regular walking/exercise in . Hydrate well, 8-10 glasses of water daily. FAS is booked 09/05/23. RTO 4wks. Visit Date: 07/31/23 Last Updated by: Brunilda Stockton CNM Note author: Brunilda Stockton CNM. 15.4wk. TOM. Taking PNV, Doing well with concerns: nausea, no vomiting. Denies any LOF, VB, abd. pain or urinary symptoms. Quickening noted. Partner in. Reviewed: NT and First screen. LOF/Ctx's/VB, when to seek emergent care. discomforts, self help measures. Rx for B6 sent in. Encouraged a healthy well balanced diet, regular walking/exercise in . Hydrate well, 8-10 glasses of water daily. FAS ordered-4wks RTO 4wks. Visit Date: 07/01/23 Last Updated by: Brunilda Stockton CNM OB Note author: Brunilda Stockton CNM. Visit assisted with the disbursing agent services. 11.2wk. OBPE. Taking PNV, Doing well with no concerns. Good appetite, stays well hydrated. Denies any LOF, VB, abd. pain, or urinary symptoms. Reviewed: VB, abdominal/ pelvic pain when to seek emergent care. Rx for PNV sent in again. Encouraged a healthy well balanced diet, regular walking/exercise in . Hydrate well, 8-10 glasses of water daily. Flu vaccine today. NT results pending. RTO 4. Visit Date: 06/09/23 Last Updated by: Niecy Muñiz LPN Leidy is here today for her Nurse intake. with [facility] disbursing agent Tierney, ID # [id number]. . LMP 04/12/23EDD 01/18/24. DAVID by u/s on 06/05/23= DAVID 01/20/24. Pt reports very little nausea, she is able to eat and drink without any problems. She delivered both of her boys in [place], she denies any problems with her pregnancies or deliveries,. and breast fed both boys She lives with her S.O. and their children. Pt is aware she will be delivering [place] [facility] and transferred if becomes High risk at any point. Discussed with pt NT u/s and genetic testing,that will be done at [facility]. Discussed labs including cf testing and UDS. Discussed with pt, healthy food choices, frozen veggies vs canned, decrease carb intake, such as rice and pasta, avoid sugary drinks, increase H2O to 7-10 glasses daily. Discussed with pt how to reach bingo caller MD after hours. packet given to pt in SP. She is aware to call with any problems or concerns. Pt was brought to senior front end web developer for scheduling OB PE. Results AMB Urinalysis, Automated UA Leukoctes 1 Dionicio/uL Last Edit by FIDE Mcgill on 08/27/23 10:41 UA Nitrite Negative Last Edit by FIDE Mcgill on 08/27/23 10:41 UA Urobilinogen 0 mg/dL Last Edit by FIDE Mcgill on 08/27/23 10:4 1 UA Protein 0 mg/dL Last Edit by FIDE Mcgill on 08/27/23 10:41 UA pH 6.0 Last Edit by FIDE Mcgill on 08/27/23 10:41 UA Blood 0 Rajinder/uL Last Edit by FIDE Mcgill on 08/27/23 10:41 UA Specific [place] 1.020 Last Edit by FIDE Mcgill on 08/27/23 10:41 UA Ketone Negative Last Edit by FIDE Mcgill on 08/27/23 10:41 UA Bilirubin 0 mg/dL Last Edit by FIDE Mcgill on 08/27/23 10:41 UA Glucose 0 mg/dL Last Edit by FIDE Mcgill on 08/27/23 10:41 Results Reviewed Results Reviewed: Laboratory Last Values Urine pH (Auto) 6.0 08/27/23 10:41 Specific [place] (Auto) 1.020 08/27/23 10:41 Urine Protein (Auto) 0 mg/dL 08/27/23 10:41 Glucose (UA)(Auto) 0 mg/dL 08/27/23 10:41 Urine Ketones (Auto) Negative 08/27/23 10:41 Urine Blood (Auto) 0 Rajinder/uL 08/27/23 10:41 Urine Nitrite (Auto) Negative 08/27/23 10:41 Urine Bilirubin (Auto) 0 mg/dL 08/27/23 10:41 Urine Urobilinogen (Auto) 0 mg/dL 08/27/23 10:41 Leukocyte Esterase (Auto) 1 Dionicio/uL 08/27/23 10:41 Coding Level of Care Code [place] Assessment & Plan Assessment & Plan Orders: Orders AMB Urinalysis Automated Today Z34.82 - Encounter for supervision of other normal , second trimester
[2023-08-27 10:28] VITALS: BP 110/50; BMI 28.8
== END 2023-08-27 10:59 | disposition home or self-care (01) ==
LOC: HO.HWS 10:25
PROVIDERS: Visit Provider Advanced Practice Midwife
DX: Z34.82 Encounter for supervision of other normal pregnancy, second trimester (principal)
CPT/HCPCS: 25942

== ENCOUNTER → 2023-08-27 10:25 | Outpatient (BNVA) | payer OTHER, SELFPAY | PROVIDERS: Visit Provider Advanced Practice Midwife | DX: Z34.82 Encounter for supervision of other normal pregnancy, second trimester (principal); Z3A.19 19 weeks gestation of pregnancy | CPT/HCPCS: 81003; 99212 ==

== ENCOUNTER 2023-08-30 10:06 | Emergency (ER) | payer OTHER, SELFPAY ==
--- NOTE | ~2023-08-30 | US_ITS ---
EXAMINATION: US , LIMITED CLINICAL INFORMATION: Pain and cramping in the 19 week . COMPARISON: Ultrasound OB less than 14 weeks 06/05/2023. TECHNIQUE: Transabdominal imaging of pelvis is performed. FINDINGS: There is a single live intrauterine fetus in breech presentation and posterior placenta. There is adequate amniotic fluid with a heart rate of 1 46 bpm. The cervix is closed measuring 3.6 cm On measurements 1. BPD measures 4.42 cm corresponding 19 weeks 6 days, Head circumference measures 5.97 cm corresponding to 19 weeks 6 days, Abdominal circumference measures 14.7 cm corresponding to 20 weeks 0 days, Femur length measures 3.10 cm corresponding 19 weeks 5 days. The composite ultrasound distal age corresponds to 19 weeks 4 days and DAVID of 7-24. There is bilateral maternal hydronephrosis. Visualized both ovaries are normal. There is a small contraction of future seen during the exam. US/US OB limited IMPRESSION: Normal live intrauterine fetus with an ultrasound gestational age of 19 weeks 4 days and DAVID of 7-24. The findings correspond to the previous ultrasound exam 06/05/2023. heart rate is normal measuring 146 bpm. Placenta is normal. Maternal ovaries are normal.
--- NOTE | ~2023-08-30 | US_ITS ---
EXAMINATION: US RETROPERITONEAL COMPLETE (RENAL) CLINICAL INFORMATION: Hematuria. Pain. 19 week patient. COMPARISON: Obstetrical ultrasound dated 08/30/2023. TECHNIQUE: Real-time imaging of the kidneys and bladder. FINDINGS: RIGHT KIDNEY: 13.6 x 6.7 x 8.2 cm (SAG x AP x TRV). The kidney is normal in size, contour, and echogenicity. Renal cortical thickness is normal. There is severe hydroureteronephrosis with the renal pelvis measuring 4.4 cm in maximal transverse diameter. There is a 1.2 x 0.6 cm echogenic calcification seen within the renal pelvis. The ureter is dilated up to 1.5 cm and can be followed to the mid pelvis level, where a obstructing 0.7 x 0.5 x 0.6 cm ureteral stone is seen. There is an additional amorphous echogenic filling defects seen within the mid ureter, likely representing sludge or tiny gravel. The ureter distal to this level is not seen. No urine jet is identified. LEFT KIDNEY: 12.2 x 4.7 x 6.2 cm (SAG x AP x TRV). The kidney is normal in size, contour, and echogenicity. Renal cortical thickness is normal. No calculi or focal parenchymal lesions. There is fullness of the left renal pelvis without significant dilatation of the renal calyces, likely representing an extrarenal pelvis. No definite hydronephrosis seen.. BLADDER: Well distended and normal. Bilateral ureteral jets are not demonstrated during the course of a 10 minute observation. Prevoid bladder volume is not calculated. The bladder is only partially distended and no post void residual was obtained. US/US retroperitoneal comp IMPRESSION: * Severe right hydroureteronephrosis due to an obstructing 0.7 cm calcification and additional echogenic sludge or tiny gravel within the mid right ureter. There is an additional 1.2 x 0.6 cm calculus seen in the right renal pelvis. No right urine jet is seen. * Left kidney unremarkable. * Bladder unremarkable.
[2023-08-30 10:14] VITALS: BP 114/61; PULSE 89; RESP 18; TEMP 36.4; O2SAT 98; BMI 28.4
--- NOTE | 2023-08-30 10:40 | ED.PREGNANCY ---
HPI - General Chief complaint: Abdominal Pain Stated complaint: Lower abd pain Time Seen by Provider: 08/30/23 10:28 Source: patient and family Mode of arrival: EMS Limitations: no limitations History of Present Illness HPI Narrative: 28 yo female with PMH of currently 20w DAVID 01/20/24 D = US plan to deliver at [facility] here with c/o just started bilateral lower abdominal pain no urinary symptoms no n/v/d no leakage of fluids no vaginal bleeding no trauma. MD Complaint: abdominal pain Onset (ago): hour(s) (1) Pain Consistency: constant Location: pelvis Severity: mild Quality: Aching Radiation: abdomen Relieving factors: none Exacerbating factors: none Associated symptoms: denies other symptoms Vaginal discharge: none Vaginal bleeding: none Patient : Yes Related Data Previous Rx's Medication Instructions Recorded vitamin with calcium 1 tab PO DAILY #90 tabs 07/01/23 no.72-iron 27 mg-folic acid 1 mg tablet ( Vitamins Plus Low Iron) ondansetron 4 mg disintegrating 4 mg PO Q8H 3 days #9 tabs 07/16/23 tablet pyridoxine (vitamin B6) 25 mg 25 mg PO TID PRN nausea and 07/31/23 tablet vomiting #90 tabs Allergies Allergy/AdvReac Type Severity Reaction Status Date / Time aspirin Allergy Unknown Unknown Verified 08/30/23 10:19 Penicillins Allergy Unknown Unknown Verified 08/30/23 10:19 Review of Systems Review of Systems: Constitutional : No Weight loss, No Fever, No Chills ENT/Mouth : No sore throat, No Rhinorrhea Eyes: No Swelling, No Redness Cardiovascular : No Chest Pain, No SOB, NoEdema Respiratory : No Cough, No Sputum, No Wheezing Gastrointestinal : no Nausea, no Vomiting, no Diarrhea, positive abdominal Pain, No Hematochezia, No Melena Genitourinary : No Dysuria, No Urinary Frequency, No Hematuria, No Urgency Musculoskeletal : No joint pain, No Myalgias, No Joint Swelling Skin : No Skin Lesions, No rash Neuro : No Weakness, No Numbness, No Dizziness, No Headache Psych : No Anxiety/Panic, No Depression All other systems reviewed and are negative. [facility] Past Medical History Attestation statement: The following information was validated with the patient. Source: old records reviewed Medical History Encounter for supervision of other normal , second trimester Social History Social History Household Members: Significant Other and Children Housing: Apartment Alcohol intake: never Patient Tobacco Use Status: Never used Tobacco Agree to transfusion: Yes Advance Directives: No Patient : Yes Sexual orientation: Straight/Heterosexual Gender identity: Female Physical Exam Vital Signs: Vital Signs: Last Vital Signs Temp 98.7 F 08/30/23 15:47 Pulse 87 08/30/23 15:47 Resp 16 08/30/23 15:47 BP 112/48 L 08/30/23 15:47 Pulse Ox 97 08/30/23 15:47 O2 Del Method Room Air 08/30/23 15:47 BMI result Body Mass Index 28.4 Appearance: Alert. Oriented X3. No acute distress. Appears uncomfortable on arrival but stoic Eyes: Pupils equal, round and reactive to light. ENT: Pharynx normal. Neck: Normal inspection. Neck supple. CVS: Normal heart rate and rhythm. Pulses normal. Respiratory: No respiratory distress. Breath sounds normal. Abdomen: Soft and mild bilateral pelvic pain : white thin discharge os closed no blood + mild CMT Skin: Skin warm and dry. pale skin color. Normal skin turgor. Extremities: No lower extremity edema. No calf ttp Neuro: Oriented X 3. No motor deficit. No sensory deficit. Course Course Course Narrative: hydronephrosis seen on OB US more than expected I am going to order renal US to asses for ureterolithiasis. discussed with Dr. Tony he recommends transfer for hydration the patient needs admission and monitoring we have no OB unit to monitor her Reevaluation(s) Reevaluation #1: call to [facility] for possible transfer 334pm Reevaluation #2: [facility] Reevaluation #3: COVID negative Medications Administered Discontinued Medications Generic Name Dose Route Start Last Admin Trade Name Freq PRN Reason Stop Dose Admin Acetaminophen 650 mg 08/30/23 10:53 08/30/23 11:47 Acetaminophen 325 Mg Tablet PO 08/30/23 10:54 650 mg ONCE ONE Administration Sodium Chloride 1,000 mls @ 999 mls/hr 08/30/23 11:00 08/30/23 13:52 Ns IV 08/30/23 12:00 Infused .Q1H1M BHARGAV Infusion Medical Decision Making Medical Decision Making MDM Narrative: 28 yo female with PMH of currently 19w4d DAVID 01/20/24 D = US plan to deliver at [facility] here with c/o lower abdominal pain starting suddenly without n/v/d bleeding, vaginal complaints, urinary symptoms at this time will need labs, UA and OB US, will hydrate and give tylenol could be UTI vs dehydration vs cramps. She denies hx of renal colic. It was sudden and both sides appendicitis unlikely. She denies flank pain. Differential Diagnosis Differential Diagnoses: The differential diagnosis associated with the presentation includes dehydration, round ligament pain, UTI, renal colic Admission/Observation Consideration of admission/observation: Escalation of care including admission/observation considered given obstruction and size of stone needs admission Consult Healthcare Provider Management of the patient was discussed with: Act Tutor (LENORA) Lab Data [facility] Lab Attestation statement: I reviewed the patient's lab results. 08/30/23 11:11 08/30/23 11:11 Labs: Lab Results 08/30/23 08/30/23 08/30/23 Range/Units 11:11 11:48 15:28 WBC 11.4 H (4.8-10.8) X10*3/uL RBC 3.72 L (4.20-5.50) X10*6/uL Hgb 11.0 L (12.0-16.0) g/dl Hct 32.5 L (37.0-47.0) % MCV 87.4 (80.0-98.0) fL MCH 29.6 (27.0-33.0) pg MCHC 33.8 (31.0-35.0) g/dl RDW 13.9 (11.0-16.0) % Plt Count 274 (160-400) X10*3/uL MPV 9.9 (9.4-12.3) fL Immature Gran % (Auto) 0.3 (0.0-0.4) % Neut % (Auto) 81.3 H (45-73) % Lymph % (Auto) 13.1 L (20-40) % [place] % (Auto) 4.8 (2-11) % Eos % (Auto) 0.2 (0-4) % Baso % (Auto) 0.3 (0-2) % Lymph # (Auto) 1.5 (1.2-4.9) X10*3/uL [place] # (Auto) 0.6 (0.1-1.2) X10*3/uL Eos # (Auto) 0.0 (0.0-0.4) X10*3/uL Baso # (Auto) 0.0 (0.0-0.2) X10*3/uL Abs Immat Gran (auto) 0.03 (0.00-0.03) X10*3/uL Absolute Neuts (auto) 9.3 H (2.0-8.3) x10*3/uL Absolute Nucleated RBC 0.000 (0.0-0.012) X10*3/uL Nucleated RBC % (auto) 0.0 (0.0-0.2) /100WBC Sodium 135 (135-145) mmol/L Potassium 3.9 (3.3-5.1) mmol/L Chloride 107 (96-108) mmol/L Carbon Dioxide 21 L (22-29) mmol/L Anion Gap 11 L (12-20) BUN 8 L (9-16) mg/dL Creatinine 0.65 (0.5-1.4) mg/dL Estim Creat Clear Calc 126.7 Estimated GFR > 60 Random Glucose 78 (60-115) mg/dL Calcium 8.9 (8.4-10.2) mg/dL Magnesium 1.8 (1.6-2.6) mg/dL Total Bilirubin 0.2 (0.0-1.0) mg/dL Direct Bilirubin < 0.2 (0.0-0.5) mg/dL AST 21 (5-31) U/L ALT 14 (0-31) U/L Alkaline Phosphatase 62 (39-117) U/L C-Reactive Protein 1.26 H (< or = 0.50) mg/dL Total Protein 6.8 (6.5-8.0) g/dL Albumin 3.3 L (3.5-5.0) g/dL Lipase 16 (8-78) U/L Urine Color Dark Yellow Urine Appearance Turbid Urine pH 8.0 (5.0-9.0) Ur Specific [place] 1.020 (1.005-1.025) Urine Protein Trace (Neg-Trace) mg/dL Urine Glucose (UA) Negative (Negative) mg/dL Urine Ketones Negative (Negative) mg/dL Urine Blood Large (3+) H (Negative) Urine Nitrite Negative (Negative) Ur Leukocyte Esterase Small (1+) H (Negative) Urine RBC >20 H (0-2) /HPF Urine WBC 6-10 H (0-5) /HPF Ur Squamous Epith Cells 6-10 (0-2) /HPF Urine Bacteria 2+ (None Seen) Hyaline Casts 0-2 (0-2) /LPF COVID-19 ([facility]INT) Negative (Negative) COVID-19 Clin Com See Note Independent Interpretation I performed an independent interpretation of an: Ultrasound Interpretation: RIGHT KIDNEY: 13.6 x 6.7 x 8.2 cm (SAG x AP x TRV). The kidney is normal in size, contour, and echogenicity. Renal cortical thickness is normal. There is severe hydroureteronephrosis with the renal pelvis measuring 4.4 cm in maximal transverse diameter. There is a 1.2 x 0.6 cm echogenic calcification seen within the renal pelvis. The ureter is dilated up to 1.5 cm and can be followed to the mid pelvis level, where a obstructing 0.7 x 0.5 x 0.6 cm ureteral stone is seen. There is an additional amorphous echogenic filling defects seen within the mid ureter, likely representing sludge or tiny gravel. The ureter distal to this level is not seen. No urine jet is identified. LEFT KIDNEY: 12.2 x 4.7 x 6.2 cm (SAG x AP x TRV). The kidney is normal in size, contour, and echogenicity. Renal cortical thickness is normal. No calculi or focal parenchymal lesions. There is fullness of the left renal pelvis without significant dilatation of the renal calyces, likely representing an extrarenal pelvis. No definite hydronephrosis seen.. BLADDER: Well distended and normal. Bilateral ureteral jets are not demonstrated during the course of a 10 minute observation. Prevoid bladder volume is not calculated. The bladder is only partially distended and no post void residual was obtained. US/US retroperitoneal comp IMPRESSION: * Severe right hydroureteronephrosis due to an obstructing 0.7 cm calcification and additional echogenic sludge or tiny gravel within the mid right ureter. There is an additional 1.2 x 0.6 cm calculus seen in the right renal pelvis. No right urine jet is seen. US/US OB limited IMPRESSION: Normal live intrauterine fetus with an ultrasound gestational age of 19 weeks 4 days and DAVID of 7-24. The findings correspond to the previous ultrasound exam 06/05/2023. heart rate is normal measuring 146 bpm. Placenta is normal Radiology Impression Discussion of test interpretation with radiology: I have reviewed the radiologist's reading. External Record Review External record reviewed: Office record Discharge Plan Discharge Clinical Impression: Pelvic pain, Ureterolithiasis Patient Disposition: [facility] Transfer Details: [facility] Prescriptions: No Action ondansetron 4 mg tablet,disintegrating 4 mg PO Q8H 3 Days Qty: 9 0RF Vitamin Plus Low Iron 27 mg iron- 1 mg tablet 1 tab PO DAILY Qty: 90 4RF pyridoxine (vitamin B6) 25 mg tablet 25 mg PO TID PRN (Reason: nausea and vomiting) Qty: 90 0RF
[2023-08-30 11:17] LABS: Basophils Percent Auto 0.3 % (0-2); Eosinophils Percent Auto 0.2 % (0-4); Hematocrit 32.5 % (37.0-47.0); Imm Gran Abs Auto 0.03 X10*3/uL (0.00-0.03); Imm Gran Pct Auto 0.3 % (0.0-0.4); Lymphocytes Absolute Auto 1.5 X10*3/uL (1.2-4.9); Lymphocytes Percent Auto 13.1 % (20-40); MANUAL DIFF FLAG NO; Mean Corpuscular HGB Conc 33.8 g/dl (31.0-35.0); Mean Corpuscular Hemoglobin 29.6 pg (27.0-33.0); Mean Corpuscular Volume 87.4 fL (80.0-98.0); Mean Platelet Volume 9.9 fL (9.4-12.3); Monocytes Absolute Auto 0.6 X10*3/uL (0.1-1.2); Monocytes Percent Auto 4.8 % (2-11); Neutrophils Absolute Auto 9.3 x10*3/uL (2.0-8.3); Neutrophils Percent Auto 81.3 % (45-73); Platelet Count 274 X10*3/uL (160-400); Red Blood Count 3.72 X10*6/uL (4.20-5.50); Red Cell Distribution Width 13.9 % (11.0-16.0); White Blood Count 11.4 X10*3/uL (4.8-10.8)
[2023-08-30 11:31] LABS: Alanine Aminotransferase 14 U/L (0-31); Albumin Level 3.3 g/dL (3.5-5.0); Alkaline Phosphatase 62 U/L (39-117); Anion Gap 11 (12-20); Aspartate Amino Transferase 21 U/L (5-31); Bilirubin Direct < 0.2 mg/dL (0.0-0.5); Bilirubin Total 0.2 mg/dL (0.0-1.0); Blood Urea Nitrogen 8 mg/dL (9-16); C Reactive Protein 1.26 mg/dL (< or = 0.50); Calcium 8.9 mg/dL (8.4-10.2); Carbon Dioxide 21 mmol/L (22-29); Chloride 107 mmol/L (96-108); Creatinine Clr Calc Pharmacy 126.7; Estimated Glomerular Filt Rate > 60; Glucose Random 78 mg/dL (60-115); Lipase 16 U/L (8-78); Magnesium 1.8 mg/dL (1.6-2.6); Potassium 3.9 mmol/L (3.3-5.1); Sodium 135 mmol/L (135-145); Total Protein 6.8 g/dL (6.5-8.0)
[2023-08-30] MEDS: 0.9 % Sodium Chloride 1,000 ML 999 ML IV (11:47)
[2023-08-30] MEDS: Acetaminophen 325 MG TABLET 650 MG PO (11:47)
[2023-08-30 12:00] LABS: Appearance Urine Turbid; Color Urine Dark Yellow; Glucose Urine UA Negative (Negative); Leukocyte Esterase Urine Small (1+) (Negative); Nitrite Urine Negative (Negative); UMIC TRIGGER UACC YES; Urine Blood Large (3+) (Negative); Urine Ketones Negative (Negative); Urine Protein Trace mg/dL (Neg-Trace)
[2023-08-30 12:09] LABS: Bacteria Urine 2+ (None Seen); Hyaline Casts Urine 0-2 /LPF (0-2); RBC Urine >20 /HPF (0-2); UACC Culture Trigger YES
--- NOTE | 2023-08-30 13:52 | P.CONOB_ITS ---
OB Consult Note - [facility] Data Service Date: 08/30/23 Primary Care Provider: None Physician Narrative I was consulted on Leidy Huerta 12:50, the patient is a 28 year old female currently 19w4d DAVID 01/20/24 D = US presented to emergency room complaining of recent onset of started bilateral lower pelvic pain not associated with any urinary symptoms or GI symptoms, no no nausea or vomiting or diarrhea, no leakage of fluids or vaginal bleeding. The patient's pain resolved completely after hydration and Tylenol CBC within normal, creatinine within normal, UA positive for microscopic hematuria and leukocyte esterase OB ultrasound: 19 weeks and 5 days of gestation, bilateral maternal hydronephrosis, small contraction seen during the exam, normal placenta OB PMFSH Past Medical History Medical History Encounter for supervision of other normal , second trimester Social History Social History Household Members: Significant Other and Children Housing: Apartment Alcohol intake: never Patient Tobacco Use Status: Never used Tobacco Agree to transfusion: Yes Advance Directives: No Patient : Yes Sexual orientation: Straight/Heterosexual Gender identity: Female Meds Allergies Allergy/AdvReac Type Severity Reaction Status Date / Time aspirin Allergy Unknown Unknown Verified 08/30/23 10:19 Penicillins Allergy Unknown Unknown Verified 08/30/23 10:19 OB Flowsheet OB Flowsheet & Tools OB Flowsheet Initial Weight: Not Recorded Date -?--?-?-?-?-?-?-?-?-?-?-?- EGA Weight Gest Week Fundal Ht Present FHR move Efface % Edema BP PrePreg We Weight GTT -?--?-?-?-?-?-?-?-?-?-?-?- Glucose LV Protein Blood Type 06/09/23 -?--?-?-?-?-?-?-?-?-?-?-?- 8w 1d 156 lb 4 oz 156 lb 4 oz -?--?-?-?-?-?-?-?-?-?-?-?- 07/01/23 -?--?-?-?-?-?-?-?-?-?-?-?- 11w 2d 157 lb 11 160 104/54 157 lb -?--?-?-?-?-?-?-?-?-?-?-?- 07/31/23 -?--?-?-?-?-?-?-?-?-?-?-?- 15w 4d 162 lb 15 150 110/52 162 lb -?--?-?-?-?-?-?-?-?-?-?-?- 08/27/23 -?--?-?-?-?-?-?-?-?-?-?-?- 19w 3d 168 lb 19 150 active 110/50 168 lb -?--?-?-?-?-?-?-?-?-?-?-?- DAVID Calculator 2 Estimated Delivery Date Method Current WG Current Estimate 01/18/24 Ultrasound #1 19w 6d Other Estimates 01/17/24 LMP (Certain) 20w 0d Plans 28 Yr. old G 3 P 2 EDC: 01/17/24 Blood type: O positive Problem List: 1. Testing: Panorama/and or First Tri screen: risk NT scan: 06/30/23-pending results... AFP: FAS: Glucose: 28 wk glucose: CBC 1st Tri: 13/39.4 28 wk. 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 19.3wk. TOM. Taking PNV, Doing well with no concerns. Good appetite, stays well hydrated. Denies any LOF, VB, abd. pain or urinary symptoms. Pt. responds w/single word answers, partner in, no eye/verbal contact. Reviewed: PTL s/s-LOF/Ctx's/VB, when to seek emergent care. FM and when to call the office for further eval. Encouraged a healthy well balanced diet, regular walking/exercise in . Hydrate well, 8-10 glasses of water daily. FAS is booked 09/05/23. RTO 4wks. Visit Date: 07/31/23 Last Updated by: Brunilda Stockton CNM Note author: Brunilda Stockton CNM. 15.4wk. TOM. Taking PNV, Doing well with concerns: nausea, no vomiting. Denies any LOF, VB, abd. pain or urinary symptoms. Quickening noted. Partner in. Reviewed: NT and First screen. LOF/Ctx's/VB, when to seek emergent care. discomforts, self help measures. Rx for B6 sent in. Encouraged a healthy well balanced diet, regular walking/exercise in . Hydrate well, 8-10 glasses of water daily. FAS ordered-4wks RTO 4wks. Visit Date: 07/01/23 Last Updated by: Brunilda Stockton CNM OB Note author: Brunilda Stockton CNM. Visit assisted with the system safety engineer services. 11.2wk. OBPE. Taking PNV, Doing well with no concerns. Good appetite, stays well hydrated. Denies any LOF, VB, abd. pain, or urinary symptoms. Reviewed: VB, abdominal/ pelvic pain when to seek emergent care. Rx for PNV sent in again. Encouraged a healthy well balanced diet, regular walking/exercise in . Hydrate well, 8-10 glasses of water daily. Flu vaccine today. NT results pending. RTO 4. Visit Date: 06/09/23 Last Updated by: DAPHNEY Carbone is here today for her Nurse intake. with [facility] system safety engineer Tierney, ID # [id number]. . LMP 04/12/23EDD 01/18/24. DAVID by u/s on 06/05/23= DAVID 01/20/24. Pt reports very little nausea, she is able to eat and drink without any problems. She delivered both of her boys in [place], she denies any problems with her pregnancies or deliveries,. and breast fed both boys She lives with her S.O. and their children. Pt is aware she will be delivering at [facility], and transferred if becomes High risk at any point. Discussed with pt NT u/s and genetic testing,that will be done at [facility]. Discussed labs including cf testing and UDS. Discussed with pt, healthy food choices, frozen veggies vs canned, decrease carb intake, such as rice and pasta, avoid sugary drinks, increase H2O to 7-10 glasses daily. Discussed with pt how to reach production helper MD after hours. packet given to pt in [place]. She is aware to call with any problems or concerns. Pt was brought to assistant front desk manager for scheduling OB PE. Past Pregnancies Del. Date GA/Weeks Outcome Route Wt Inf Gender Labor Alysia Anesthesia Location Provider Complicate 07/28/14 40 live - full term 6 lb 5 oz Male 6.5 hours none [place] none 05/19/19 40 live - full term 6 lb 7 oz Male 7 hrs none [place] none History 2 3 Elective abortions 0 Para 2 Spontaneous abortions 0 Hx # Term Pregnancies 2 Ectopic pregnancies 0 Hx # Pregnancies 0 Multiple births 0 OB Physical Exam Physical Exam Additional Comments: Reported by Dr. Metcalf as the following: Abdomen benign soft nontender no CVA tenderness Evaluation Baseline FHR:: 146 OB Consult Results Labs 08/30/23 11:11 08/30/23 11:11 Labs: Short CBC 08/30/23 Range/Units 11:11 WBC 11.4 H (4.8-10.8) X10*3/uL Hgb 11.0 L (12.0-16.0) g/dl Hct 32.5 L (37.0-47.0) % Plt Count 274 (160-400) X10*3/uL BMP 08/30/23 11:11 Sodium 135 Potassium 3.9 Chloride 107 Carbon Dioxide 21 L BUN 8 L Creatinine 0.65 Calcium 8.9 Liver Function 08/30/23 Range/Units 11:11 Total Bilirubin 0.2 (0.0-1.0) mg/dL Direct Bilirubin < 0.2 (0.0-0.5) mg/dL AST 21 (5-31) U/L ALT 14 (0-31) U/L Alkaline Phosphatase 62 (39-117) U/L Albumin 3.3 L (3.5-5.0) g/dL Urine 08/30/23 Range/Units 11:48 Urine Color Dark Yellow Urine Appearance Turbid Urine pH 8.0 (5.0-9.0) Ur Specific [place] 1.020 (1.005-1.025) Urine Protein Trace (Neg-Trace) mg/dL Urine Glucose (UA) Negative (Negative) mg/dL OB - CN: A/P Assessment and Plan (1) 19 weeks gestation of : Status: Acute Assessment and Plan: 12:[address] Metcalf the following: Cervical exam, GC/CT, BV panel Trichomonas to be collected Urine culture be sent Given the patient's microscopic hematuria and bilateral hydronephrosis, order Renal ultrasound to rule out stone (2) Bilateral hydronephrosis: Status: Acute Assessment and Plan: 12:59 Right hydronephrosis could be physiological in but differential diagnosis of left hydronephrosis could be kidney stone especially with the presence of microscopic hematuria, [place] ultrasound ordered. 15:15 renal ultrasound showed the following: IMPRESSION: * Severe right hydroureteronephrosis due to an obstructing 0.7 cm calcification and additional echogenic sludge or tiny gravel within the mid right ureter. There is an additional 1.2 x 0.6 cm calculus seen in the right renal pelvis. No right urine jet is seen. * Left kidney unremarkable. * Bladder unremarkable. I recommend to Dr. Metcalf to transfer to patient to [facility] for further management since the patient needs to be admitted for IV hydration with urology consult and possible additional intervention and since there is no maternity unit available at [facility]. I spent a total of 20 minutes reviewing the chart, communicating to the emergency room provider and documenting the medical record Time Spent With Patient Time: Total time managing care of this patient today ____ minutes.
[2023-08-30 15:45] LABS: COVID-19 Test Negative (Negative); IDNOW Serial# 152EDE1D
[2023-08-30 15:47] VITALS: BP 112/48; PULSE 87; RESP 16; TEMP 37.1; O2SAT 97
[2023-08-30] MEDS: 0.9 % Sodium Chloride 1,000 ML 100 ML IVCONT (16:10)
[2023-08-30 16:12] LABS: CT PCR NOT DETECTED (Not Detect.); NG PCR NOT DETECTED (Not Detect.)
[2023-08-30 17:54] VITALS: BP 106/59; PULSE 79; RESP 16; TEMP 36.8; O2SAT 100
--- NOTE | 2023-08-30 18:07 | PC.NURSE ---
resting, calm, coop. no distress,
[2023-09-01 12:02] LABS: BV Int Neg Control Negative (Negative); BV Int Pos Control Positive (Positive)
== END 2023-08-30 18:16 | disposition short-term general hospital (02) ==
PROVIDERS: Emergency Provider Emergency Medicine
DX: O23.02 Infections of kidney in pregnancy, second trimester (principal); N13.2 Hydronephrosis with renal and ureteral calculous obstruction; Z3A.19 19 weeks gestation of pregnancy
CPT/HCPCS: 0353U; 36415; 76770; 76815; 80048; 80076; 81001; 81003; 83690; 83735; 85025; 86140; 87086; 87480; 87510; 87635; 87660; 96360; 96361; 99285

== ENCOUNTER → 2023-08-30 10:42 | Outpatient (BNV) | payer OTHER, SELFPAY | PROVIDERS: Emergency Provider Emergency Medicine; Visit Provider Obstetrics & Gynecology | DX: Z3A.19 19 weeks gestation of pregnancy (principal); N13.30 Unspecified hydronephrosis | CPT/HCPCS: 99283 ==

== ENCOUNTER 2023-09-22 08:25 | Emergency (ER) | payer OTHER, SELFPAY ==
--- NOTE | ~2023-09-22 | US_ITS ---
EXAMINATION: US RETROPERITONEAL LIMITED (RENAL) CLINICAL INFORMATION: Right side abdominal pain. Vomiting. COMPARISON: 08/30/2023 TECHNIQUE: Real-time imaging limited to the right kidney. FINDINGS: RIGHT KIDNEY: 12.8 x 7.2 x 6.4 cm (SAG x AP x TRV). There is severe right hydroureteronephrosis possibly slightly improved from the prior study. The renal pelvis on prior exam measured 4.4 cm and currently measures 3.8 cm. No renal or ureteral calculus is seen. The right ureteral jet is not visualized. There is partial visualization of intrauterine . This study was not performed to evaluate the . US/US renal RT IMPRESSION: Severe right hydroureteronephrosis possibly slightly improved from the prior study. No renal or ureteral calculus is seen.
[2023-09-22 08:45] VITALS: BP 107/64; PULSE 90; RESP 19; TEMP 36.6; O2SAT 99; BMI 30.2
[2023-09-22 09:12] LABS: MANUAL DIFF FLAG NO
[2023-09-22 09:14] LABS: Appearance Urine Clear; Color Urine Dark Yellow; Glucose Urine UA Negative (Negative); Leukocyte Esterase Urine Small (1+) (Negative); Nitrite Urine Negative (Negative); UMIC TRIGGER UACC YES; Urine Blood Negative (Negative); Urine Ketones 15 mg/dL (Negative); Urine Protein Negative (Neg-Trace)
[2023-09-22 09:15] LABS: Basophils Percent Auto 0.4 % (0-2); Eosinophils Percent Auto 0.1 % (0-4); Hematocrit 33.9 % (37.0-47.0); Hemoglobin 11.4 g/dl (12.0-16.0); Imm Gran Abs Auto 0.03 X10*3/uL (0.00-0.03); Imm Gran Pct Auto 0.4 % (0.0-0.4); Lymphocytes Absolute Auto 0.9 X10*3/uL (1.2-4.9); Lymphocytes Percent Auto 13.3 % (20-40); Mean Corpuscular HGB Conc 33.6 g/dl (31.0-35.0); Mean Corpuscular Hemoglobin 29.5 pg (27.0-33.0); Mean Corpuscular Volume 87.8 fL (80.0-98.0); Monocytes Absolute Auto 0.5 X10*3/uL (0.1-1.2); Monocytes Percent Auto 6.8 % (2-11); Neutrophils Absolute Auto 5.5 x10*3/uL (2.0-8.3); Platelet Count 244 X10*3/uL (160-400); Red Blood Count 3.86 X10*6/uL (4.20-5.50); Red Cell Distribution Width 13.6 % (11.0-16.0); White Blood Count 6.9 X10*3/uL (4.8-10.8)
[2023-09-22 09:22] LABS: Bacteria Urine Trace (None Seen); Hyaline Casts Urine 0-2 /LPF (0-2); RBC Urine 0-2 /HPF (0-2); UACC Culture Trigger YES; WBC Urine 0-5 /HPF (0-5)
[2023-09-22 09:32] LABS: Alanine Aminotransferase 14 U/L (0-31); Albumin Level 3.2 g/dL (3.5-5.0); Alkaline Phosphatase 66 U/L (39-117); Anion Gap 11 (12-20); Aspartate Amino Transferase 20 U/L (5-31); Bilirubin Direct 0.1 mg/dL (0.0-0.5); Bilirubin Total 0.3 mg/dL (0.0-1.0); Blood Urea Nitrogen 7 mg/dL (9-16); Calcium 8.8 mg/dL (8.4-10.2); Carbon Dioxide 23 mmol/L (22-29); Chloride 105 mmol/L (96-108); Estimated Glomerular Filt Rate > 60; Glucose Random 79 mg/dL (60-115); Lipase 13 U/L (8-78); Magnesium 1.6 mg/dL (1.6-2.6); Potassium 3.5 mmol/L (3.3-5.1); Sodium 135 mmol/L (135-145); Total Protein 6.7 g/dL (6.5-8.0)
[2023-09-22 10:10] VITALS: BP 106/61; PULSE 92; RESP 18; TEMP 37; O2SAT 98
[2023-09-22] MEDS: 0.9 % Sodium Chloride 1,000 ML 999 ML IV (10:16)
--- NOTE | 2023-09-22 10:16 | ED.NAVMDI ---
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 She comes in today with no pain but started with n/v and one episode of diarrhea last night. She has no vaginal bleeding, + FM, has had intermittent issues with vomiting during . She notes a rash on both cheeks after vomiting MD elicited complaint: nausea and vomiting Pertinent past history: other (hx of vomiting during ) Onset (ago): day(s) (last night) Description of vomiting: food contents and watery Associated nausea: Yes Associated abdominal pain: No Severity: moderate Exacerbating factors: eating Relieving factors: none Context: other (+ vomiting in ) Associated symptoms: loss of appetite, malaise, nausea/vomiting and other (facial rash) Related Data Previous Rx's Medication Instructions Recorded vitamin with calcium 1 tab PO DAILY #90 tabs 07/01/23 no.72-iron 27 mg-folic acid 1 mg tablet ( Vitamins Plus Low Iron) ondansetron 4 mg disintegrating 4 mg PO Q8H 3 days #9 tabs 07/16/23 tablet pyridoxine (vitamin B6) 25 mg 25 mg PO TID PRN nausea and 07/31/23 tablet vomiting #90 tabs metoclopramide HCl 10 mg tablet 10 mg PO Q6H PRN nausea and 09/22/23 (Reglan) vomiting #30 tabs Allergies Allergy/AdvReac Type Severity Reaction Status Date / Time aspirin Allergy Unknown Unknown Verified 09/22/23 08:45 Penicillins Allergy Unknown Unknown Verified 09/22/23 08:45 Review of Systems Review of Systems: Constitutional : No Weight loss, No Fever, No Chills ENT/Mouth : No sore throat, No Rhinorrhea Eyes: No Swelling, No Redness Cardiovascular : No Chest Pain, No SOB, NoEdema Respiratory : No Cough, No Sputum, No Wheezing Gastrointestinal : Positive Nausea, Positive Vomiting, positive Diarrhea, no abdominal Pain, No Hematochezia, No Melena Genitourinary : No Dysuria, No Urinary Frequency, No Hematuria, No Urgency , no vaginal bleeding Musculoskeletal : No joint pain, No Myalgias, No Joint Swelling Skin : No Skin Lesions, pos rash Neuro : No Weakness, No Numbness, No Dizziness, No Headache Psych : No Anxiety/Panic, No Depression All other systems reviewed and are negative. Gastrointestinal: Gastrointestinal: Reports nausea PMFSH Past Medical History Attestation statement: The following information was validated with the patient. Source: old records reviewed Medical History Encounter for supervision of other normal , second trimester Social History Social History Household Members: Significant Other and Children Housing: Apartment Alcohol intake: former Patient Tobacco Use Status: Never used Tobacco Smoked in Last 30 Days: No Use of substances other than those prescribed or required for medical reasons: No Agree to transfusion: Yes Advance Directives: No Sexual orientation: Straight/Heterosexual Gender identity: Female Physical Exam Vital Signs: Vital Signs: Last Vital Signs Temp 98.6 F 09/22/23 10:10 Pulse 92 09/22/23 10:10 Resp 18 09/22/23 10:10 BP 106/61 09/22/23 10:10 Pulse Ox 98 09/22/23 10:10 O2 Del Method Room Air 09/22/23 10:10 BMI result Body Mass Index 30.2 Appearance: Alert. Oriented X3. No acute distress. Eyes: Pupils equal, round and reactive to light. no subconj hemorrhages noted. ENT: Pharynx normal. faint petechial rash noted on both upper zygomatic areas Neck: Normal inspection. Neck supple. CVS: Normal heart rate and rhythm. Pulses normal. Respiratory: No respiratory distress. Breath sounds normal. Abdomen: Soft and nontender. Skin: Skin warm and dry. Normal skin color. Normal skin turgor. Extremities: No lower extremity edema. No calf ttp Neuro: Oriented X 3. No motor deficit. No sensory deficit. Medications Administered Discontinued Medications Generic Name Dose Route Start Last Admin Trade Name Freq PRN Reason Stop Dose Admin Diphenhydramine HCl 25 mg 09/22/23 10:11 09/22/23 10:44 Diphenhydramine Hcl 50 Mg/Ml Vial IVPUSH 09/22/23 10:12 25 mg ONCE ONE Administration Sodium Chloride 1,000 mls @ 999 mls/hr 09/22/23 10:15 09/22/23 11:47 Ns IV 09/22/23 11:15 Infused .Q1H1M BHARGAV Infusion Metoclopramide HCl 10 mg 09/22/23 10:11 09/22/23 10:44 Metoclopramide Hcl 10 Mg/2 Ml Vial IVPUSH 09/22/23 10:12 10 mg ONCE ONE Administration Medical Decision Making Medical Decision Making MDM Narrative: 28 yo female 23 weeks D = US hx of R sided ureteral obstruction from stone - medical management at [facility] 08/30 here with c/o n/v but no OB complaints - FHT checked at 152-155 at this time has petechial rash on face from forceful emesis. At this time basic labs, UA, obtain US to evaluate stone, IVF and reglan/benadryl. Has hx of same in past with n/v. Differential Diagnosis Differential Diagnoses: The differential diagnosis associated with the presentation includes n/v in , will check stone, UTI, viral syndrome Admission/Observation Consideration of admission/observation: Escalation of care including admission/observation considered able to tolerate PO feels much better stable for DC Lab Data [facility] Lab Attestation statement: I reviewed the patient's lab results. 09/22/23 08:59 09/22/23 08:59 Labs: Lab Results 09/22/23 Range/Units 08:59 WBC 6.9 (4.8-10.8) X10*3/uL RBC 3.86 L (4.20-5.50) X10*6/uL Hgb 11.4 L (12.0-16.0) g/dl Hct 33.9 L (37.0-47.0) % MCV 87.8 (80.0-98.0) fL MCH 29.5 (27.0-33.0) pg MCHC 33.6 (31.0-35.0) g/dl RDW 13.6 (11.0-16.0) % Plt Count 244 (160-400) X10*3/uL MPV 10.0 (9.4-12.3) fL Immature Gran % (Auto) 0.4 (0.0-0.4) % Neut % (Auto) 79.0 H (45-73) % Lymph % (Auto) 13.3 L (20-40) % [place] % (Auto) 6.8 (2-11) % Eos % (Auto) 0.1 (0-4) % Baso % (Auto) 0.4 (0-2) % Lymph # (Auto) 0.9 L (1.2-4.9) X10*3/uL [place] # (Auto) 0.5 (0.1-1.2) X10*3/uL Eos # (Auto) 0.0 (0.0-0.4) X10*3/uL Baso # (Auto) 0.0 (0.0-0.2) X10*3/uL Abs Immat Gran (auto) 0.03 (0.00-0.03) X10*3/uL Absolute Neuts (auto) 5.5 (2.0-8.3) x10*3/uL Absolute Nucleated RBC 0.000 (0.0-0.012) X10*3/uL Nucleated RBC % (auto) 0.0 (0.0-0.2) /100WBC Sodium 135 (135-145) mmol/L Potassium 3.5 (3.3-5.1) mmol/L Chloride 105 (96-108) mmol/L Carbon Dioxide 23 (22-29) mmol/L Anion Gap 11 L (12-20) BUN 7 L (9-16) mg/dL Creatinine 0.65 (0.5-1.4) mg/dL Estim Creat Clear Calc 121.0 Estimated GFR > 60 Random Glucose 79 (60-115) mg/dL Calcium 8.8 (8.4-10.2) mg/dL Magnesium 1.6 (1.6-2.6) mg/dL Total Bilirubin 0.3 (0.0-1.0) mg/dL Direct Bilirubin 0.1 (0.0-0.5) mg/dL AST 20 (5-31) U/L ALT 14 (0-31) U/L Alkaline Phosphatase 66 (39-117) U/L Total Protein 6.7 (6.5-8.0) g/dL Albumin 3.2 L (3.5-5.0) g/dL Lipase 13 (8-78) U/L Urine Color Dark Yellow Urine Appearance Clear Urine pH 6.0 (5.0-9.0) Ur Specific [place] 1.020 (1.005-1.025) Urine Protein Negative (Neg-Trace) mg/dL Urine Glucose (UA) Negative (Negative) mg/dL Urine Ketones 15 (Negative) mg/dL Urine Blood Negative (Negative) Urine Nitrite Negative (Negative) Ur Leukocyte Esterase Small (1+) H (Negative) Urine RBC 0-2 (0-2) /HPF Urine WBC 0-5 (0-5) /HPF Ur Squamous Epith Cells 3-5 (0-2) /HPF Urine Bacteria Trace (None Seen) Hyaline Casts 0-2 (0-2) /LPF Independent Interpretation I performed an independent interpretation of an: Ultrasound (hydro has improved) Radiology Impression Discussion of test interpretation with radiology: I have reviewed the radiologist's reading. External Record Review External record reviewed: Inpatient record Prescription Management I considered prescription management with: Other Discharge Plan Discharge Clinical Impression: Nausea & vomiting Qualifiers: Vomiting type: unspecified Qualified Code(s): R11.2 - Nausea with vomiting, unspecified Patient Disposition: Home, Self-Care Instructions: Acute Nausea and Vomiting (ED) Additional Instructions: stay hydrated drink plenty of fluids. return for fevers, vaginal bleeding, pain, inability to eat or drink or any other concerns. mant?ngase hidratado y tori muchos l?quidos. Regrese si tiene fiebre, sangrado vaginal, dolor, incapacidad para comer o beber o cualquier otra inquietud. nasreen un seguimiento con lopez obstetra la erupci?n en la jaleesa desaparecer? lentamente con el tiempo Prescriptions: New metoclopramide HCl [Reglan] 10 mg tablet 10 mg PO Q6H PRN (Reason: nausea and vomiting) Qty: 30 0RF No Action ondansetron 4 mg tablet,disintegrating 4 mg PO Q8H 3 Days Qty: 9 0RF Vitamin Plus Low Iron 27 mg iron- 1 mg tablet 1 tab PO DAILY Qty: 90 4RF pyridoxine (vitamin B6) 25 mg tablet 25 mg PO TID PRN (Reason: nausea and vomiting) Qty: 90 0RF Interventions: ED Discharge Assessment Last Done: 03/04/24 12:14 Discharge Date/Time: 09/22/23 12:14 Print Language: Bulgarian
[2023-09-22] MEDS: Metoclopramide HCl 10 MG/2 ML VIAL IVPUSH (10:44)
[2023-09-22] MEDS: diphenhydrAMINE HCL 50 MG/ML VIAL 25 MG IVPUSH (10:44)
== END 2023-09-22 12:14 | disposition home or self-care (01) ==
PROVIDERS: Emergency Provider Emergency Medicine
DX: O21.2 Late vomiting of pregnancy (principal); O99.891 Other specified diseases and conditions complicating pregnancy; N20.1 Calculus of ureter; Z3A.23 23 weeks gestation of pregnancy
CPT/HCPCS: 36415; 76775; 80048; 80076; 81001; 83690; 83735; 85025; 87086; 96361; 96374; 96375; 99284; J1200; J2765

== ENCOUNTER 2023-09-26 12:39 | Outpatient (AMB) | payer OTHER, SELFPAY ==
--- NOTE | 2023-09-26 12:56 | A.OFFVISPN_ITS ---
Intake Vital Signs 09/26/23 12:58 Height 5 ft 2 in Weight 166 lb BMI 30.4 BP 108/62 Intake Visit Reasons: TOM Promotion Officer Required: Yes Promotion Officer Language: Senior Supplier Quality Engineer Name: FIDE Grier Information Interpreted: non-clinical & clinical Roof Designer: Roof Designer Present Accompanied by: Self / Same As Patient Allergies aspirin Allergy (Unknown, Verified 09/26/23 12:59) Unknown Penicillins Allergy (Unknown, Verified 09/26/23 12:59) Unknown Is last menstrual period known: No Post menopausal: No Patient : Yes PFSH Medical History Encounter for supervision of other normal , second trimester Social History Household Members: Significant Other and Children Both parents involved: Yes Housing: Apartment Alcohol intake: former Patient Tobacco Use Status: Never used Tobacco Agree to transfusion: Yes Sexual orientation: Straight/Heterosexual Gender identity: Female Female Reproductive History Menstrual Age of Menarche: 14 History History 3 Elective abortions 0 Para 2 Spontaneous abortions 0 Hx # Term Pregnancies 2 Ectopic pregnancies 0 Hx # Pregnancies 0 Multiple births 0 Past Pregnancies Del. Date GA/Weeks Outcome Route Wt Inf Gender Labor Alysia Anesthesia Location Provider Complicate 07/28/14 40 live - full term 6 lb 5 oz Male 6.5 hours none [place] none 05/19/19 40 live - full term 6 lb 7 oz Male 7 hrs none [place] none Visit DAVID Calculator Estimated Delivery Date Method Current WG Current Estimate 01/18/24 Ultrasound #1 23w 5d Other Estimates 01/17/24 LMP (Certain) 23w 6d Expected Delivery Route/Plan Vaginal delivery Specific Issues/Plans 28 Yr. old G 3 P 2 EDC: 01/17/24 Blood type: O positive Problem List: 1. Renal calculi-right hydronephrosis admitted to [facility] 08/30/2023. 2. 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 Transportation: has own Labor, and Concerns: Labor support: Plan: Infant Feeding Plans: breast and bottle control: OB Visit Log Initial Weight: Not Recorded Date -?-?-?-?-?-?-?-?-?-?-?-?- EGA Weight Gest Week Fundal Ht Present FHR move Efface % Edema BP PrePreg We Weight GTT -?-?--?-?-?-?-?-?-?-?-?-?- Glucose LV Protein Blood Type 06/09/23 -?-?-?-?-?-?-?-?-?-?-?-?- 8w 1d 156 lb 4 oz 156 lb 4 oz -?-?-?-?-?-?-?-?-?-?-?-?- 07/01/23 -?-?-?-?-?-?-?-?-?-?-?-?- 11w 2d 157 lb 11 160 104/54 157 lb -?-?-?-?-?-?-?-?-?-?-?-?- 07/31/23 -?-?-?-?-?-?-?-?-?-?-?-?- 15w 4d 162 lb 15 150 110/52 162 lb -?-?-?-?-?-?-?-?-?-?-?-?- 08/27/23 -?-?-?-?-?-?-?-?-?-?-?-?- 19w 3d 168 lb 19 150 active 110/50 168 lb -?-?-?-?-?-?-?-?-?-?-?-?- 09/26/23 -?-?-?-?-?-?-?-?-?-?-?-?- 23w 5d 166 lb 23 150 active 108/62 166 lb -?-?-?-?-?-?-?-?-?-?-?-?- Notes Visit Date: 09/26/23 Last Updated by: Brunilda Stockton CNM Note author: Brunilda Stockton CNM. Visit with Certified Promotion Officer: Shonda Vincent CMA. 23.5wk. TOM. Taking PNV, Doing well with no concerns. Denies any LOF, VB, abd. pain or urinary symptoms. Good FM. Was admitted to [facility] for several days due to abdominal pain, history of hydronephrosis/renal calculi, records not available. Also seen in the ED here on September 21 for nausea and vomiting. Reviewed: PTL s/s-LOF/Ctx's/VB, when to seek emergent care. Hydrate well, 8-10 glasses of water daily. Plan 28 week labs at next visit. Release records, including FA S results. Advised not to come to the hospital in [place] for -related concerns due to her advanced stage in advised to go to [facility]. Staff to research for FAS results and hospitalization records. RTO 4wks. Visit Date: 08/27/23 Last Updated by: Brunilda Stockton CNM Note author: Brunilda Stockton CNM. 19.3wk. TOM. Taking PNV, Doing well with no concerns. Good appetite, stays well hydrated. Denies any LOF, VB, abd. pain or urinary symptoms. Pt. responds w/single word answers, partner in, no eye/verbal contact. Reviewed: PTL s/s-LOF/Ctx's/VB, when to seek emergent care. FM and when to call the office for further eval. Encouraged a healthy well balanced diet, regular walking/exercise in . Hydrate well, 8-10 glasses of water daily. FAS is booked 09/05/23. RTO 4wks. Visit Date: 07/31/23 Last Updated by: Brunilda Stockton CNM Note author: Brunilda Stockton CNM. 15.4wk. TOM. Taking PNV, Doing well with concerns: nausea, no vomiting. Denies any LOF, VB, abd. pain or urinary symptoms. Quickening noted. Partner in. Reviewed: NT and First screen. LOF/Ctx's/VB, when to seek emergent care. discomforts, self help measures. Rx for B6 sent in. Encouraged a healthy well balanced diet, regular walking/exercise in . Hydrate well, 8-10 glasses of water daily. FAS ordered-4wks RTO 4wks. Visit Date: 07/01/23 Last Updated by: Brunilda Stockton CNM OB Note author: Brunilda Stockton CNM. Visit assisted with the air conditioning equipment mechanic services. 11.2wk. OBPE. Taking PNV, Doing well with no concerns. Good appetite, stays well hydrated. Denies any LOF, VB, abd. pain, or urinary symptoms. Reviewed: VB, abdominal/ pelvic pain when to seek emergent care. Rx for PNV sent in again. Encouraged a healthy well balanced diet, regular walking/exercise in . Hydrate well, 8-10 glasses of water daily. Flu vaccine today. NT results pending. RTO 4. Visit Date: 06/09/23 Last Updated by: Niecy Muñiz LPN Leidy is here today for her Nurse intake. with SP air conditioning equipment mechanic Tierney, ID # [id number]. . LMP 04/12/23EDD 01/18/24. DAVID by u/s on 06/05/23= DAVID 01/20/24. Pt reports very little nausea, she is able to eat and drink without any problems. She delivered both of her boys in [place], she denies any problems with her pregnancies or deliveries,. and breast fed both boys She lives with her S.O. and their children. Pt is aware she will be delivering at [facility], and transferred if becomes High risk at any point. Discussed with pt NT u/s and genetic testing,that will be done at [facility]. Discussed labs including cf testing and UDS. Discussed with pt, healthy food choices, frozen veggies vs canned, decrease carb intake, such as rice and pasta, avoid sugary drinks, increase H2O to 7-10 glasses daily. Discussed with pt how to reach party plan sales host/hostess MD after hours. packet given to pt in SP. She is aware to call with any problems or concerns. Pt was brought to front sight attacher for scheduling OB PE. Results AMB Urinalysis Dipstick UR Leukocytes Last Edit by Virgen Doherty MA on 09/26/23 13:14 1+ Virgen Doherty 09/26/23 13:14 UR Nitrite Negative Last Edit by Virgen Doherty MA on 09/26/23 13:14 UR Urobilinogen 2 Last Edit by Virgen Doherty MA on 09/26/23 13:14 UR Protein Last Edit by Virgen Doherty MA on 09/26/23 13:14 1+ 0.3g/l Virgen Doherty 09/26/23 13:14 UR Ph 5.5 Last Edit by Virgen Doherty MA on 09/26/23 13:14 UR Blood Negative Last Edit by Virgen Doherty MA on 09/26/23 13:14 UR Specific [place] 1.030 Last Edit by Virgen Doherty MA on 09/26/23 13:14 UR Ketone Last Edit by Virgen Doherty MA on 09/26/23 13:14 +0.5 Virgen Doherty 09/26/23 13:14 UR Bilirubin Last Edit by Virgen Doherty MA on 09/26/23 13:14 1+ Virgen Doherty 09/26/23 13:14 UR Glucose Negative Last Edit by Virgen Doherty MA on 09/26/23 13:14 Coding Level of Care Code [place] Assessment & Plan Assessment & Plan Orders: Orders AMB Urinalysis Dipstick Today Z34.82 - Encounter for supervision of other normal , second trimester
[2023-09-26 12:58] VITALS: BP 108/62; BMI 30.4
== END 2023-09-26 13:36 | disposition home or self-care (01) ==
LOC: HO.HWS 12:39
PROVIDERS: Visit Provider Advanced Practice Midwife
DX: Z34.82 Encounter for supervision of other normal pregnancy, second trimester (principal)
CPT/HCPCS: 25942

== ENCOUNTER → 2023-09-26 12:39 | Outpatient (BNVA) | payer OTHER, SELFPAY | PROVIDERS: Visit Provider Advanced Practice Midwife | DX: Z34.82 Encounter for supervision of other normal pregnancy, second trimester (principal); Z3A.23 23 weeks gestation of pregnancy | CPT/HCPCS: 81002; 99212 ==

== ENCOUNTER 2023-10-22 07:37 | Outpatient (REF) | payer OTHER, SELFPAY ==
[2023-10-22 10:03] LABS: Hematocrit 31.6 % (37.0-47.0); Hemoglobin 10.5 g/dl (12.0-16.0); Mean Corpuscular HGB Conc 33.2 g/dl (31.0-35.0); Mean Corpuscular Hemoglobin 29.2 pg (27.0-33.0); Mean Platelet Volume 10.1 fL (9.4-12.3); Platelet Count 231 X10*3/uL (160-400); Red Blood Count 3.59 X10*6/uL (4.20-5.50); Red Cell Distribution Width 13.7 % (11.0-16.0)
[2023-10-22 11:14] LABS: Syphilis Screen Nonreactive (Nonreactive)
[2023-10-22 11:30] LABS: Glucose 1 Hour PP 50gm Dose 142 mg/dL (60-140)
== END 2023-10-22 07:38 | disposition home or self-care (01) ==
LOC: HO.LAB 07:37
PROVIDERS: Visit Provider Advanced Practice Midwife
DX: Z34.82 Encounter for supervision of other normal pregnancy, second trimester (principal); Z20.2 Contact with and (suspected) exposure to infections with a predominantly sexual mode of transmission
CPT/HCPCS: 36415; 81003; 82950; 85027; 86780; 99212

== ENCOUNTER 2023-10-22 07:37 | Outpatient (AMB) | payer OTHER, SELFPAY ==
[2023-10-22 07:40] VITALS: BP 104/62; BMI 31.8
--- NOTE | 2023-10-22 07:40 | A.OFFVISPN_ITS ---
Intake Vital Signs 10/22/23 07:40 Height 5 ft 2 in Weight 174 lb BMI 31.8 BP 104/62 Intake Visit Reasons: TOM Allergies aspirin Allergy (Unknown, Verified 10/22/23 07:40) Unknown Penicillins Allergy (Unknown, Verified 10/22/23 07:40) Unknown Patient : Yes [facility] Medical History Encounter for supervision of other normal , second trimester Social History Household Members: Significant Other and Children Both parents involved: Yes Housing: Apartment Alcohol intake: former Patient Tobacco Use Status: Never used Tobacco Agree to transfusion: Yes Sexual orientation: Straight/Heterosexual Gender identity: Female Female Reproductive History Menstrual Age of Menarche: 14 History History 3 Elective abortions 0 Para 2 Spontaneous abortions 0 Hx # Term Pregnancies 2 Ectopic pregnancies 0 Hx # Pregnancies 0 Multiple births 0 Past Pregnancies Del. Date GA/Weeks Outcome Route Wt Inf Gender Labor Alysia Anesthesia Location Provider Complicate 07/28/14 40 live - full term 6 lb 5 oz Male 6.5 hours none [place] none 05/19/19 40 live - full term 6 lb 7 oz Male 7 hrs none [place] none Questionnaire [place] Depression Brooklyn Depression Scale I have been able to laugh and see the funny side of things: As much as I always could I have looked forward with enjoyment to things: As much as I ever did I have blamed myself unnecessarily when things went wrong: No, never I have been anxious or worried for no reason: No, not at all I have felt scared of panicky for no very good reason at all: No, not at all Things have been getting on top of me: No, most of the time I have coped quite well I have been so unhappy that I have had difficulty sleeping: No, not at all I have felt sad or miserable: No, not at all I have been so unhappy that I have been crying: No, never The thought of harming myself has occurred to me: Never 1 Visit DAVID Calculator Estimated Delivery Date Method Current WG Current Estimate 01/18/24 Ultrasound #1 27w 3d Other Estimates 01/17/24 LMP (Certain) 27w 4d Expected Delivery Route/Plan Vaginal delivery Specific Issues/Plans 28 Yr. old G 3 P 2 EDC: 01/17/24 Blood type: O positive Problem List: 1. Renal calculi-right hydronephrosis admitted to [facility] 08/30/2023. 2. Sinhala-speaking safety coordinator required Testing: First Tri screen: Negative NT scan: Normal AFP: nl FAS: nl 28 wk glucose: CBC 1st Tri: 13/39.4 28 wk. 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-?-?-?-?-?-?-?-?-?- 19w 3d 168 lb 19 150 active 110/50 168 lb -?-?-?-?-?-?-?-?-?-?-?-?- 09/26/23 -?-?-?-?-?-?-?-?-?-?-?-?- 23w 5d 166 lb 23 150 active 108/62 166 lb -?-?-?-?-?-?-?-?-?-?-?-?- 10/22/23 -?-?-?-?-?-?-?-?-?-?-?-?- 27w 3d 174 lb 28 140 active 104/62 174 lb -?-?-?-?-?-?-?-?-?-?-?-?- Notes Visit Date: 10/22/23 Last Updated by: Brunilda Stockton CNM Note author: Brunilda Stockton CNM. 27.2wk. TOM. Taking PNV, Doing well with no concerns. Good appetite, stays well hydrated. Denies any LOF, VB, abd. pain or urinary symptoms. Partner present. 28wk wk. labs ordered. EPDS=1. Reviewed: PTL s/s-LOF/Ctx's/VB, when to seek emergent care. discomforts, self help measures. FM and when to call the office for further eval. Encouraged a healthy well balanced diet, regular walking/exercise in . Hydrate well, 8-10 glasses of water daily. RTO 3wks. Visit Date: 09/26/23 Last Updated by: Brunilda Stockton CNM Note author: Brunilda Stockton CNM. Visit with Certified Video Camera Operator: Shonda Vincent CMA. 23.5wk. TOM. Taking PNV, Doing well with no concerns. Denies any LOF, VB, abd. pain or urinary symptoms. Good FM. Was admitted to [facility] for several days due to abdominal pain, history of hydronephrosis/renal calculi, records not available. Also seen in the ED here on September 21 for nausea and vomiting. Reviewed: PTL s/s-LOF/Ctx's/VB, when to seek emergent care. Hydrate well, 8-10 glasses of water daily. Plan 28 week labs at next visit. Release records, including FA S results. Advised not to come to the hospital in [place] for -related concerns due to her advanced stage in [facility]. Staff to research for FAS results and hospitalization records. RTO 4wks. Visit Date: 08/27/23 Last Updated by: Brunilda Stockton CNM Note author: Brunilda Stockton CNM. 19.3wk. TOM. Taking PNV, Doing well with no concerns. Good appetite, stays well hydrated. Denies any LOF, VB, abd. pain or urinary symptoms. Pt. responds w/single word answers, partner in, no eye/verbal contact. Reviewed: PTL s/s-LOF/Ctx's/VB, when to seek emergent care. FM and when to call the office for further eval. Encouraged a healthy well balanced diet, regular walking/exercise in . Hydrate well, 8-10 glasses of water daily. FAS is booked 09/05/23. RTO 4wks. Visit Date: 07/31/23 Last Updated by: Brunilda Stockton CNM Note author: Brunilda Stockton CNM. 15.4wk. TOM. Taking PNV, Doing well with concerns: nausea, no vomiting. Denies any LOF, VB, abd. pain or urinary symptoms. Quickening noted. Partner in. Reviewed: NT and First screen. LOF/Ctx's/VB, when to seek emergent care. discomforts, self help measures. Rx for B6 sent in. Encouraged a healthy well balanced diet, regular walking/exercise in . Hydrate well, 8-10 glasses of water daily. FAS ordered-4wks RTO 4wks. Visit Date: 07/01/23 Last Updated by: Brunilda Stockton CNM OB Note author: Brunilda Stockton CNM. Visit assisted with the safety coordinator services. 11.2wk. OBPE. Taking PNV, Doing well with no concerns. Good appetite, stays well hydrated. Denies any LOF, VB, abd. pain, or urinary symptoms. Reviewed: VB, abdominal/ pelvic pain when to seek emergent care. Rx for PNV sent in again. Encouraged a healthy well balanced diet, regular walking/exercise in . Hydrate well, 8-10 glasses of water daily. Flu vaccine today. NT results pending. RTO 4. Visit Date: 06/09/23 Last Updated by: Niecy Muñiz LPN Leidy is here today for her Nurse intake. with SP safety coordinator Tierney, ID # [id number]. . LMP 04/12/23EDD 01/18/24. DAVID by u/s on 06/05/23= DAVID 01/20/24. Pt reports very little nausea, she is able to eat and drink without any problems. She delivered both of her boys in [place], she denies any problems with her pregnancies or deliveries,. and breast fed both boys She lives with her S.O. and their children. Pt is aware she will be delivering at [facility], and transferred if becomes High risk at any point. Discussed with pt NT u/s and genetic testing,that will be done at [facility]. Discussed labs including cf testing and UDS. Discussed with pt, healthy food choices, frozen veggies vs canned, decrease carb intake, such as rice and pasta, avoid sugary drinks, increase H2O to 7-10 glasses daily. Discussed with pt how to reach call center specialist MD after hours. packet given to pt in SP. She is aware to call with any problems or concerns. Pt was brought to desktop technician for scheduling OB PE. Results AMB Urinalysis, Automated UA Leukoctes 1 Dionicio/uL Last Edit by FIDE Mcgill on 10/22/23 07:58 UA Nitrite Negative Last Edit by FIDE Mcgill on 10/22/23 07:58 UA Urobilinogen 0 mg/dL Last Edit by FIDE Mcgill on 10/22/23 07:5 8 UA Protein 0 mg/dL Last Edit by FIDE Mcgill on 10/22/23 07:58 UA pH 6.5 Last Edit by FIDE Mcgill on 10/22/23 07:58 UA Blood 0 Rajinder/uL Last Edit by FIDE Mcgill on 10/22/23 07:58 UA Specific [place] 1.015 Last Edit by FIDE Mcgill on 10/22/23 07:58 UA Ketone Negative Last Edit by FIDE Mcgill on 10/22/23 07:58 UA Bilirubin 0 mg/dL Last Edit by FIDE Mcgill on 10/22/23 07:58 UA Glucose 0 mg/dL Last Edit by FIDE Mcgill on 10/22/23 07:58 Coding Level of Care Code [place] Assessment & Plan Assessment & Plan Orders: Orders Complete Blood Count no Diff Today Z34.82 - Encounter for supervision of other normal , second trimester Glucose 1 Hour PP 50gm Dose Today Z34.82 - Encounter for supervision of other normal , second trimester Syphilis Screen Today Z20.2 - Contact with and (suspected) exposure to infections with a predominantly sexual mode of transmission, Z34.82 - Encounter for supervision of other normal , second trimester AMB Urinalysis Automated Today Z34.93 - Encounter for supervision of normal , unspecified, third trimester
== END 2023-10-22 08:07 | disposition home or self-care (01) ==
PROVIDERS: Visit Provider Advanced Practice Midwife
DX: Z34.93 Encounter for supervision of normal pregnancy, unspecified, third trimester (principal)
CPT/HCPCS: 25942

== ENCOUNTER 2023-10-24 07:46 | Outpatient (REF) | payer OTHER, SELFPAY ==
[2023-10-24 09:12] LABS: Glucose Fasting 74 mg/dL (60-99)
[2023-10-24 10:48] LABS: Glucose 2 Hour 132 mg/dL
[2023-10-24 11:10] LABS: Glucose 1 Hour 158 mg/dL
[2023-10-24 11:43] LABS: Glucose 3 Hour 81 mg/dL
== END 2023-10-24 07:47 | disposition home or self-care (01) ==
LOC: HO.LAB 07:46
PROVIDERS: Visit Provider Advanced Practice Midwife
DX: Z34.82 Encounter for supervision of other normal pregnancy, second trimester (principal)
CPT/HCPCS: 36415; 82951

== ENCOUNTER 2023-11-12 11:29 | Outpatient (AMB) | payer OTHER, SELFPAY ==
[2023-11-12 11:40] VITALS: BP 108/52; BMI 32.7
--- NOTE | 2023-11-12 11:40 | MHC.OFFVIS ---
Vital Signs 11/12/23 11:40 Height 5 ft 2 in Weight 179 lb BMI 32.7 BP 108/52 L Intake Visit Reasons: TOM Inter Fold Roll Cutter Required: Yes Inter Fold Roll Cutter Language: Swedish Accompanied by: Family/Other Allergies aspirin Allergy (Unknown, Verified 11/12/23 11:41) Unknown Penicillins Allergy (Unknown, Verified 11/12/23 11:41) Unknown Medication List - Last Reconciled 11/12/23 by Ewa Fish CNM ferrous sulfate 325 mg PO DAILY metoclopramide HCl (Reglan) 10 mg PO Q6H PRN ondansetron 4 mg PO Q8H 3 days PNV,calcium 89-laxc-ogqyo acid 27 mg iron- 1 mg ( Vitamins Plus Low Iron) 1 tab PO DAILY pyridoxine (vitamin B6) 25 mg PO TID PRN Is last menstrual period known: Yes Last menstrual period: 03/23/23 Post menopausal: No Patient : Yes PFSH Medical History Encounter for supervision of other normal , second trimester Social History Household Members: Significant Other and Children Both parents involved: Yes Housing: Apartment Alcohol intake: former Patient Tobacco Use Status: Never used Tobacco Agree to transfusion: Yes Patient : Yes Sexual orientation: Straight/Heterosexual Gender identity: Female Female Reproductive History Menstrual Age of Menarche: 14 Date of last menstrual period: 03/23/23 control method: none Total pregnancies: 3 Full term: 2 Number of Living Children: 2 Date of last pap smear: 07/02/23 (unsatisfactory) Physical Exam Vital Signs: Last Vital Signs BP 108/52 L 11/12/23 11:40 BMI result Body Mass Index 32.7 Coding
--- NOTE | 2023-11-12 12:00 | A.OFFVISPN_ITS ---
Intake Vital Signs 11/12/23 11:40 Height 5 ft 2 in Weight 179 lb BMI 32.7 BP 108/52 L Intake Visit Reasons: TOM Button Grader Required: Yes Button Grader Language: Iranian Accompanied by: Family/Other Allergies aspirin Allergy (Unknown, Verified 11/12/23 11:41) Unknown Penicillins Allergy (Unknown, Verified 11/12/23 11:41) Unknown Medication List - Last Reconciled 11/12/23 by Ewa Fish CNM ferrous sulfate 325 mg PO DAILY metoclopramide HCl (Reglan) 10 mg PO Q6H PRN ondansetron 4 mg PO Q8H 3 days PNV,calcium [id number]-fvfo-[id number] acid 27 mg iron- 1 mg ( Vitamins Plus Low Iron) 1 tab PO DAILY pyridoxine (vitamin B6) 25 mg PO TID PRN Is last menstrual period known: Yes Last menstrual period: 03/23/23 Post menopausal: No Patient : Yes PFSH Medical History Encounter for supervision of other normal , second trimester Social History Household Members: Significant Other and Children Both parents involved: Yes Housing: Apartment Alcohol intake: former Patient Tobacco Use Status: Never used Tobacco Agree to transfusion: Yes Patient : Yes Sexual orientation: Straight/Heterosexual Gender identity: Female Female Reproductive History Menstrual Age of Menarche: 14 Date of last menstrual period: 03/23/23 control method: none Total pregnancies: 3 Full term: 2 Number of Living Children: 2 Date of last pap smear: 07/02/23 (unsatisfactory) History History 3 Elective abortions 0 Para 2 Spontaneous abortions 0 Hx # Term Pregnancies 2 Ectopic pregnancies 0 Hx # Pregnancies 0 Multiple births 0 Past Pregnancies Del. Date GA/Weeks Outcome Route Wt Inf Gender Labor Alysia Anesthesia Location Provider Complicate 07/28/14 40 live - full term 6 lb 5 oz Male 6.5 hours none [place] none 05/19/19 40 live - full term 6 lb 7 oz Male 7 hrs none [place] none Questionnaire History History : 3 Visit DAVID Calculator Estimated Delivery Date Method Current WG Current Estimate 01/18/24 Ultrasound #1 30w 3d Other Estimates 01/17/24 LMP (Certain) 30w 4d Expected Delivery Route/Plan Vaginal delivery Specific Issues/Plans 28 Yr. old G 3 P 2 EDC: 01/17/24 Blood type: O positive Problem List: 1. Renal calculi-right hydronephrosis admitted to [facility] 08/30/2023. 2. Iranian-speaking historical interpreter required Testing: First Tri screen: Negative NT scan: Normal AFP: nl FAS: nl 28 wk glucose: 142, 3'gtt=74/158/132/81 CBC 1st Tri: 13/39.4 28 wk. 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-?-?-?-?- 08/27/23 -?-?-?-?-?-?-?-?-?-?-?-?- 19w 3d 168 lb 19 150 active 110/50 168 lb -?-?-?-?-?-?-?-?-?-?-?-?- 09/26/23 -?-?-?-?-?-?-?-?-?-?-?-?- 23w 5d 166 lb 23 150 active 108/62 166 lb -?-?-?-?-?-?-?-?-?-?-?-?- 10/22/23 -?-?-?-?-?-?-?-?-?-?-?-?- 27w 3d 174 lb 28 140 active 104/62 174 lb -?-?-?-?-?-?-?-?-?-?-?-?- 11/12/23 -?-?-?-?-?-?-?-?-?-?-?-?- 30w 3d 179 lb 30 ? 150 active 108/ 52 179 lb -?-?-?-?-?--?-?-?-?-?-?-?- Notes Visit Date: 11/12/23 Last Updated by: Ewa Fish CNM Patient is here at [facility] with her partner her Young son for her visit, at 30 weeks 3 days. She says baby is moving well she has no complaints at all today she answer questions in one-word answers. She said she has not taking any iron nobody told her to take it reminded her that there is a prescription out there for her to take on because she is a little bit anemic I reviewed her 1 hour and 3 hour sugar tests. I asked her if she is drinking lots of water for general health in kidneys and she said she was not a recommended she try to increase her water intake to try and help prevent recurrence her kidney infection and kidney stones and reminded her if she had any symptoms of fever chills with pain or any other problems to return to [facility] for care. Her abdomen was soft no contractions and negative CVAT, She does know she will be delivering at [facility]. she lives in [place] but it is closer to [place] than [facility]. She says she had no difficulty with her other 2 deliveries in [place]. RTC 2 weeks Visit Date: 10/22/23 Last Updated by: Brunilda Stockton CNM Note author: Brunilda Stockton CNM. 27.2wk. TOM. Taking PNV, Doing well with no concerns. Good appetite, stays well hydrated. Denies any LOF, VB, abd. pain or urinary symptoms. Partner present. 28wk wk. labs ordered. EPDS=1. Reviewed: PTL s/s-LOF/Ctx's/VB, when to seek emergent care. discomforts, self help measures. FM and when to call the office for further eval. Encouraged a healthy well balanced diet, regular walking/exercise in . Hydrate well, 8-10 glasses of water daily. RTO 3wks. Visit Date: 09/26/23 Last Updated by: Brunilda Stockton CNM Note author: Brunilda Stockton CNM. Visit with Certified Button Grader: Shonda Vincent CMA. 23.5wk. TOM. Taking PNV, Doing well with no concerns. Denies any LOF, VB, abd. pain or urinary symptoms. Good FM. Was admitted to [facility] for several days due to abdominal pain, history of hydronephrosis/renal calculi, records not available. Also seen in the ED here on September 21 for nausea and vomiting. Reviewed: PTL s/s-LOF/Ctx's/VB, when to seek emergent care. Hydrate well, 8-10 glasses of water daily. Plan 28 week labs at next visit. Release records, including FA S results. Advised not to come to the hospital in [place] for -related concerns due to her advanced stage in advised to [facility]. Staff to research for FAS results and hospitalization records. RTO 4wks. Visit Date: 08/27/23 Last Updated by: Brunilda Stockton CNM Note author: Brunilda Stockton CNM. 19.3wk. TOM. Taking PNV, Doing well with no concerns. Good appetite, stays well hydrated. Denies any LOF, VB, abd. pain or urinary symptoms. Pt. responds w/single word answers, partner in, no eye/verbal contact. Reviewed: PTL s/s-LOF/Ctx's/VB, when to seek emergent care. FM and when to call the office for further eval. Encouraged a healthy well balanced diet, regular walking/exercise in . Hydrate well, 8-10 glasses of water daily. FAS is booked 09/05/23. RTO 4wks. Visit Date: 07/31/23 Last Updated by: Brunilda Stockton CNM Note author: Brunilda Stockton CNM. 15.4wk. TOM. Taking PNV, Doing well with concerns: nausea, no vomiting. Denies any LOF, VB, abd. pain or urinary symptoms. Quickening noted. Partner in. Reviewed: NT and First screen. LOF/Ctx's/VB, when to seek emergent care. discomforts, self help measures. Rx for B6 sent in. Encouraged a healthy well balanced diet, regular walking/exercise in . Hydrate well, 8-10 glasses of water daily. FAS ordered-4wks RTO 4wks. Visit Date: 07/01/23 Last Updated by: Brunilda Stockton CNM OB Note author: Brunilda Stockton CNM. Visit assisted with the historical interpreter services. 11.2wk. OBPE. Taking PNV, Doing well with no concerns. Good appetite, stays well hydrated. Denies any LOF, VB, abd. pain, or urinary symptoms. Reviewed: VB, abdominal/ pelvic pain when to seek emergent care. Rx for PNV sent in again. Encouraged a healthy well balanced diet, regular walking/exercise in . Hydrate well, 8-10 glasses of water daily. Flu vaccine today. NT results pending. RTO 4. Visit Date: 06/09/23 Last Updated by: Niecy Muñiz LPN Leidy is here today for her Nurse intake. with SP historical interpreter Tierney, ID # [id number]. . LMP 04/12/23EDD 01/18/24. DAVID by u/s on 06/05/23= DAVID 01/20/24. Pt reports very little nausea, she is able to eat and drink without any problems. She delivered both of her boys in [place], she denies any problems with her pregnancies or deliveries,. and breast fed both boys She lives with her S.O. and their children. Pt is aware she will be delivering at [facility], and transferred if becomes High risk at any point. Discussed with pt NT u/s and genetic testing,that will be done at [facility]. Discussed labs including cf testing and UDS. Discussed with pt, healthy food choices, frozen veggies vs canned, decrease carb intake, such as rice and pasta, avoid sugary drinks, increase H2O to 7-10 glasses daily. Discussed with pt how to reach rn call center MD after hours. packet given to pt in SP. She is aware to call with any problems or concerns. Pt was brought to front line supervisor for scheduling OB PE. Coding Level of Care Code [place] Diagnoses Encounter for supervision of normal in third trimester Z34.93 Assessment & Plan Assessment & Plan (1) Encounter for supervision of normal in third trimester: Code(s): Z34.93 - Encounter for supervision of normal , unspecified, third trimester Category: Medical
== END 2023-11-12 12:53 | disposition home or self-care (01) ==
PROVIDERS: Visit Provider Advanced Practice Midwife
DX: Z34.93 Encounter for supervision of normal pregnancy, unspecified, third trimester (principal)
CPT/HCPCS: 25942

== ENCOUNTER → 2023-11-12 11:29 | Outpatient (BNVA) | payer OTHER, SELFPAY | PROVIDERS: Visit Provider Advanced Practice Midwife | DX: Z34.83 Encounter for supervision of other normal pregnancy, third trimester (principal); Z3A.30 30 weeks gestation of pregnancy | CPT/HCPCS: 99212 ==

== ENCOUNTER 2023-11-26 13:30 | Outpatient (AMB) | payer OTHER, SELFPAY ==
--- NOTE | 2023-11-26 13:32 | MHC.OFFVISPN ---
Intake Vital Signs 11/26/23 13:38 Height 5 ft 2 in Weight 181 lb BMI 33.1 BP 110/52 L Intake Visit Reasons: TOM Automotive Starter Repairer Required: Yes Automotive Starter Repairer Language: Mosotho Accompanied by: Family/Other Allergies aspirin Allergy (Unknown, Verified 11/26/23 13:38) Unknown Penicillins Allergy (Unknown, Verified 11/26/23 13:38) Unknown Medication List - Last Reconciled 11/26/23 by Ewa Fish CNM ferrous sulfate 325 mg PO DAILY metoclopramide HCl (Reglan) 10 mg PO Q6H PRN ondansetron 4 mg PO Q8H 3 days PNV,calcium [id number]-sbfrc acid 27 mg iron- 1 mg ( Vitamins Plus Low Iron) 1 tab PO DAILY pyridoxine (vitamin B6) 25 mg PO TID PRN Is last menstrual period known: Yes Last menstrual period: 03/23/23 Post menopausal: No Patient : Yes PFSH Medical History Encounter for supervision of other normal , second trimester Social History Household Members: Significant Other and Children Both parents involved: Yes Housing: Apartment Alcohol intake: former Patient Tobacco Use Status: Never used Tobacco Agree to transfusion: Yes Sexual orientation: Straight/Heterosexual Gender identity: Female Female Reproductive History Menstrual Age of Menarche: 14 Date of last menstrual period: 03/23/23 control method: none Total pregnancies: 3 Full term: 2 Number of Living Children: 2 Date of last pap smear: 07/02/23 (unsatisfactory) History History 3 Elective abortions 0 Para 2 Spontaneous abortions 0 Hx # Term Pregnancies 2 Ectopic pregnancies 0 Hx # Pregnancies 0 Multiple births 0 Past Pregnancies Del. Date GA/Weeks Outcome Route Wt Inf Gender Labor Alysia Anesthesia Location Provider Complicate 07/28/14 40 live - full term 6 lb 5 oz Male 6.5 hours none [place] none 05/19/19 40 live - full term 6 lb 7 oz Male 7 hrs none [place] none Questionnaire History History : 3 Visit DAVID Calculator Estimated Delivery Date Method Current WG Current Estimate 01/18/24 Ultrasound #1 32w 3d Other Estimates 01/17/24 LMP (Certain) 32w 4d Expected Delivery Route/Plan Vaginal delivery Specific Issues/Plans 28 Yr. old G 3 P 2 EDC: 01/17/24 Blood type: O positive Problem List: 1. Renal calculi-right hydronephrosis admitted to [facility] 08/30/2023. 2. Mosotho-speaking companion caregiver required Testing: First Tri screen: Negative NT scan: Normal AFP: nl FAS: nl 28 wk glucose: 142, 3'gtt=74/158/132/81 CBC 1st Tri: 13/39.4 28 wk. 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 Labor, and Concerns: Labor support: Plan: Feeding Plans: breast and bottle control: OB Visit Log Initial Weight: Not Recorded Date <del>?</del> EGA Weight Gest Week Fundal Ht Present FHR move Efface % Edema BP PrePreg We Weight GTT <del>?</del> Glucose LV Protein Blood Type 06/09/23 <del>?</del> 8w 1d 156 lb 4 oz 156 lb 4 oz <del>?</del> 07/01/23 <del>?</del> 11w 2d 157 lb 11 160 104/54 157 lb <del>?</del> 07/31/23 <del>?</del> 15w 4d 162 lb 15 150 110/52 162 lb <del>?</del> 08/27/23 <del>?</del> 19w 3d 168 lb 19 150 active 110/50 168 lb <del>?</del> 09/26/23 <del>?</del> 23w 5d 166 lb 23 150 active 108/62 166 lb <del>?</del> 10/22/23 <del>?</del> 27w 3d 174 lb 28 140 active 104/62 174 lb <del>?</del> 11/12/23 <del>?</del> 30w 3d 179 lb 30 ? 150 active 108/52 179 lb <del>?</del> 11/26/23 <del>?</del> 32w 3d 181 lb 32.5 ?vtx 140 active 110/52 181 lb <del>?</del> Notes Visit Date: 11/26/23 Last Updated by: Ewa Fish CNM Patient is here with her and young son for her visit at 32 weeks and 3 days. She has not having any problems she says she is taking her iron the baby is moving a lot she has not having any pain or contractions or anything that is worrisome at all. She is planning on breast and bottle feeding I reviewed that if she gives a bottle early in her baby's life she will have less milk in it workout as well she says she knows this. She plans on using Depo-Provera for control as she used it before. I offered her the Tdap vaccine and she is open to it and so she can be seen at the hospital office for the Tdap vaccine any time in the next couple of weeks. We will see her in 2 weeks. Visit Date: 11/12/23 Last Updated by: Ewa Fish CNM Patient is here at [facility] with her partner her Young son for her visit, at 30 weeks 3 days. She says baby is moving well she has no complaints at all today she answer questions in one-word answers. She said she has not taking any iron nobody told her to take it reminded her that there is a prescription out there for her to take on because she is a little bit anemic I reviewed her 1 hour and 3 hour sugar tests. I asked her if she is drinking lots of water for general health in kidneys and she said she was not a recommended she try to increase her water intake to try and help prevent recurrence her kidney infection and kidney stones and reminded her if she had any symptoms of fever chills with pain or any other problems to return to [facility] for care. Her abdomen was soft no contractions and negative CVAT, She does know she will be delivering at [facility]. she lives in [place] but it is closer to [place] than [facility]. She says she had no difficulty with her other 2 deliveries in [place]. RTC 2 weeks Visit Date: 10/22/23 Last Updated by: Brunilda Stockton CNM Note author: Brunilda Stockton CNM. 27.2wk. TOM. Taking PNV, Doing well with no concerns. Good appetite, stays well hydrated. Denies any LOF, VB, abd. pain or urinary symptoms. Partner present. 28wk wk. labs ordered. EPDS=1. Reviewed: PTL s/s-LOF/Ctx's/VB, when to seek emergent care. discomforts, self help measures. FM and when to call the office for further eval. Encouraged a healthy well balanced diet, regular walking/exercise in . Hydrate well, 8-10 glasses of water daily. RTO 3wks. Visit Date: 09/26/23 Last Updated by: Brunilda Stockton CNM Note author: Brunilda Stockton CNM. Visit with Certified Automotive Starter Repairer: Shonda Vincent CMA. 23.5wk. TOM. Taking PNV, Doing well with no concerns. Denies any LOF, VB, abd. pain or urinary symptoms. Good FM. Was admitted to [facility] for several days due to abdominal pain, history of hydronephrosis/renal calculi, records not available. Also seen in the ED here on September 21 for nausea and vomiting. Reviewed: PTL s/s-LOF/Ctx's/VB, when to seek emergent care. Hydrate well, 8-10 glasses of water daily. Plan 28 week labs at next visit. Release records, including FA S results. Advised not to come to the hospital in [place] for -related concerns due to her advanced stage in [facility]. Staff to research for FAS results and hospitalization records. RTO 4wks. Visit Date: 08/27/23 Last Updated by: Brunilda Stockton CNM Note author: Brunilda Stockton CNM. 19.3wk. TOM. Taking PNV, Doing well with no concerns. Good appetite, stays well hydrated. Denies any LOF, VB, abd. pain or urinary symptoms. Pt. responds w/single word answers, partner in, no eye/verbal contact. Reviewed: PTL s/s-LOF/Ctx's/VB, when to seek emergent care. FM and when to call the office for further eval. Encouraged a healthy well balanced diet, regular walking/exercise in . Hydrate well, 8-10 glasses of water daily. FAS is booked 09/05/23. RTO 4wks. Visit Date: 07/31/23 Last Updated by: Brunilda Stockton CNM Note author: Brunilda Stockton CNM. 15.4wk. TOM. Taking PNV, Doing well with concerns: nausea, no vomiting. Denies any LOF, VB, abd. pain or urinary symptoms. Quickening noted. Partner in. Reviewed: NT and First screen. LOF/Ctx's/VB, when to seek emergent care. discomforts, self help measures. Rx for B6 sent in. Encouraged a healthy well balanced diet, regular walking/exercise in . Hydrate well, 8-10 glasses of water daily. FAS ordered-4wks RTO 4wks. Visit Date: 07/01/23 Last Updated by: Brunilda Stockton CNM OB Note author: Brunilda Stockton CNM. Visit assisted with the companion caregiver services. 11.2wk. OBPE. Taking PNV, Doing well with no concerns. Good appetite, stays well hydrated. Denies any LOF, VB, abd. pain, or urinary symptoms. Reviewed: VB, abdominal/ pelvic pain when to seek emergent care. Rx for PNV sent in again. Encouraged a healthy well balanced diet, regular walking/exercise in . Hydrate well, 8-10 glasses of water daily. Flu vaccine today. NT results pending. RTO 4. Visit Date: 06/09/23 Last Updated by: Niecy Muñiz LPN Leidy is here today for her Nurse intake. with SP companion caregiver Tierney, ID # [id number]. . LMP 04/12/23EDD 01/18/24. DAVID by u/s on 06/05/23= DAVID 01/20/24. Pt reports very little nausea, she is able to eat and drink without any problems. She delivered both of her boys in [place], she denies any problems with her pregnancies or deliveries,. and breast fed both boys She lives with her S.O. and their children. Pt is aware she will be delivering at [facility], and transferred if becomes High risk at any point. Discussed with pt NT u/s and genetic testing,that will be done at [facility]. Discussed labs including cf testing and UDS. Discussed with pt, healthy food choices, frozen veggies vs canned, decrease carb intake, such as rice and pasta, avoid sugary drinks, increase H2O to 7-10 glasses daily. Discussed with pt how to reach powder shoveler MD after hours. packet given to pt in SP. She is aware to call with any problems or concerns. Pt was brought to front attendant for scheduling OB PE. Initial Infection History & Risk Profile History of STDs: No HIV risk evaluation: low risk Hepatitis B risk evaluation: low risk Patient or partner has history of Genital Herpes: No Varicella/chicken pox status: unknown Genetic Screening & Ocean Export Account Manager Symptoms since LMP: nausea Genetic Screening/Teratology Counseling - Includes patient, baby's father, or anyone in either family with: 1. Patient's age 35 years or older as of estimated date of delivery: No 2. Thalassemia (Cymro, Turkmen, Mediterranean, or Background); MCV less than 80: No 3. Neural Tube Defect (Meningomyelocele, Spina Bifida, or Anencephaly): No 4. Congenital Heart Defect: No 5. Down Syndrome: No 6. Joel-Sachs (Ashkenazi Nondenominational, Cajun, Jamaican Taiwanese): No 7. Meseret Disease (Ashkenazi Nondenominational): No 8. Familial Dysautonomia (Ashkenazi Nondenominational): No 9. Sickle Cell Disease or Trait (): No 10. Hemophilia or other blood disorders: No 11. Muscular Dystrophy: No 12. Cystic Fibrosis: No 13. [place]'s Chorea: No 14. Intellectual disability/Autism: No 15. Other inherited genetic or chromosomal disorder: No 16. Maternal Metabolic Disorder (EG,TYPE 1 Diabetes, PKU): No 17. Patient or baby's father had a child with defects not listed above: No 18. Recurrent loss or a stillbirth: No 19. Medications (including supplements, vitamins, herbs or otc drugs)/illicit/recreational drugs/alcohol since last menstrual period: No 20. Any other: No Infection History 1. Live with someone with TB or exposed to TB: No 2. Rash or viral illness since last menstrual period: No 3. Hepatitis B,C: No Other (see comments) Comments: no STI'S Source: [employer] [place] [employer] Coding Level of Care Code [place] Diagnoses Encounter for supervision of normal in third trimester Z34.93 Assessment & Plan Assessment & Plan (1) Encounter for supervision of normal in third trimester: Code(s): Z34.93 - Encounter for supervision of normal , unspecified, third trimester Category: Medical Orders: Orders TDaP Immunization Today Z23 - Encounter for immunization, Z34.93 - Encounter for supervision of normal , unspecified, third trimester Medications: New Boostrix Tdap (diphth,pertus(acell),tetanus) 0.5 mL IM ONCE 0.5 mL 0RF NS Z23 - Encounter for immunization, Z34.93 - Encounter for supervision of normal , unspecified, third trimester
[2023-11-26 13:38] VITALS: BP 110/52; BMI 33.1
== END 2023-11-26 13:57 | disposition home or self-care (01) ==
PROVIDERS: Visit Provider Advanced Practice Midwife
DX: Z34.93 Encounter for supervision of normal pregnancy, unspecified, third trimester (principal)
CPT/HCPCS: 25942

== ENCOUNTER → 2023-11-26 13:30 | Outpatient (BNVA) | payer OTHER, SELFPAY | PROVIDERS: Visit Provider Advanced Practice Midwife | DX: Z34.83 Encounter for supervision of other normal pregnancy, third trimester (principal); Z23 Encounter for immunization; Z3A.32 32 weeks gestation of pregnancy | CPT/HCPCS: 99212 ==

== ENCOUNTER 2023-12-10 13:00 | Outpatient (AMB) | payer OTHER, SELFPAY ==
--- NOTE | 2023-12-10 13:19 | MHC.OFFVISPN ---
Intake Vital Signs 12/10/23 13:20 Height 5 ft 2 in Weight 183 lb BMI 33.5 BP 118/62 Intake Visit Reasons: OB Information Interpreted: clinical only Allergies aspirin Allergy (Unknown, Verified 12/10/23 13:23) Unknown Penicillins Allergy (Unknown, Verified 12/10/23 13:23) Unknown [facility] Medical History Encounter for supervision of other normal , second trimester Social History Household Members: Significant Other and Children Both parents involved: Yes Housing: Apartment Alcohol intake: former Patient Tobacco Use Status: Never used Tobacco Agree to transfusion: Yes Sexual orientation: Straight/Heterosexual Gender identity: Female Female Reproductive History Menstrual Age of Menarche: 14 History History 3 Elective abortions 0 Para 2 Spontaneous abortions 0 Hx # Term Pregnancies 2 Ectopic pregnancies 0 Hx # Pregnancies 0 Multiple births 0 Past Pregnancies Del. Date GA/Weeks Outcome Route Wt Inf Gender Labor Alysia Anesthesia Location Provider Complicate 07/28/14 40 live - full term 6 lb 5 oz Male 6.5 hours none [place] none 05/19/19 40 live - full term 6 lb 7 oz Male 7 hrs none [place] none Visit DAVID Calculator Estimated Delivery Date Method Current WG Current Estimate 01/18/24 Ultrasound #1 34w 3d Other Estimates 01/17/24 LMP (Certain) 34w 4d Expected Delivery Route/Plan Vaginal delivery Specific Issues/Plans 28 Yr. old G 3 P 2 EDC: 01/17/24 Blood type: O positive Problem List: 1. Renal calculi-right hydronephrosis admitted to [facility] 08/30/2023. 2. Polish-speaking audio visual production specialist required Testing: First Tri screen: Negative NT scan: Normal AFP: nl FAS: nl 28 wk glucose: 142, 3'gtt=74/158/132/81 CBC 1st Tri: 1339.4 28 wk. 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 Transportation: has own Labor, and Concerns: Labor support: Plan: Infant Feeding Plans: breast and bottle control: OB Visit Log Initial Weight: Not Recorded Date <del>?</del> EGA Weight Gest Week Fundal Ht Present FHR move Efface % Edema BP PrePreg We Weight GTT <del>?</del> Glucose LV Protein Blood Type 06/09/23 <del>?</del> 8w 1d 156 lb 4 oz 156 lb 4 oz <del>?</del> 07/01/23 <del>?</del> 11w 2d 157 lb 11 160 104/54 157 lb <del>?</del> 07/31/23 <del>?</del> 15w 4d 162 lb 15 150 110/52 162 lb <del>?</del> 08/27/23 <del>?</del> 19w 3d 168 lb 19 150 active 110/50 168 lb <del>?</del> 09/26/23 <del>?</del> 23w 5d 166 lb 23 150 active 108/62 166 lb <del>?</del> 10/22/23 <del>?</del> 27w 3d 174 lb 28 140 active 104/62 174 lb <del>?</del> 11/12/23 <del>?</del> 30w 3d 179 lb 30 ? 150 active 108/52 179 lb <del>?</del> 11/26/23 <del>?</del> 32w 3d 181 lb 32.5 ?vtx 140 active 110/52 181 lb <del>?</del> 12/10/23 <del>?</del> 34w 3d 183 lb 35 ?vtx 140 active 118/62 183 lb <del>?</del> Notes Visit Date: 12/10/23 Last Updated by: Eaw Fish CNM Patient is here for her visit with her and son. She has not having any problems at all she said she did go to the hospital to get the vaccine but there was some misunderstanding and the were not able to give it then it develops a might of been a day there was no nurse in the office. She has not having any other concerns this time her son again helped listen to the heart rate and was very interested listening to every family member with the that is go. She has not having any contractions or difficulties we have already discussed and bottle-feeding and control. Her next visit will be in 2 weeks with cultures and I let her know about so she can plan accordingly. She is going to get an appointment to go up to the hospital when the nurse is available to give the vaccine (Tdap). Visit Date: 11/26/23 Last Updated by: Ewa Fish CNM Patient is here with her and young son for her visit at 32 weeks and 3 days. She has not having any problems she says she is taking her iron the baby is moving a lot she has not having any pain or contractions or anything that is worrisome at all. She is planning on breast and bottle feeding I reviewed that if she gives a bottle early in her baby's life she will have less milk in it workout as well she says she knows this. She plans on using Depo-Provera for control as she used it before. I offered her the Tdap vaccine and she is open to it and so she can be seen at the hospital office for the Tdap vaccine any time in the next couple of weeks. We will see her in 2 weeks. Visit Date: 11/12/23 Last Updated by: Ewa Fish CNM Patient is here at [facility] with her partner her Young son for her visit, at 30 weeks 3 days. She says baby is moving well she has no complaints at all today she answer questions in one-word answers. She said she has not taking any iron nobody told her to take it reminded her that there is a prescription out there for her to take on because she is a little bit anemic I reviewed her 1 hour and 3 hour sugar tests. I asked her if she is drinking lots of water for general health in kidneys and she said she was not a recommended she try to increase her water intake to try and help prevent recurrence her kidney infection and kidney stones and reminded her if she had any symptoms of fever chills with pain or any other problems to return to [facility] for care. Her abdomen was soft no contractions and negative CVAT, She does know she will be delivering at [facility]. she lives in [place] but it is closer to [place] than [facility]. She says she had no difficulty with her other 2 deliveries in [place]. RTC 2 weeks Visit Date: 10/22/23 Last Updated by: Brunilda Stockton CNM Note author: Brunilda Stockton CNM. 27.2wk. TOM. Taking PNV, Doing well with no concerns. Good appetite, stays well hydrated. Denies any LOF, VB, abd. pain or urinary symptoms. Partner present. 28wk wk. labs ordered. EPDS=1. Reviewed: PTL s/s-LOF/Ctx's/VB, when to seek emergent care. discomforts, self help measures. FM and when to call the office for further eval. Encouraged a healthy well balanced diet, regular walking/exercise in . Hydrate well, 8-10 glasses of water daily. RTO 3wks. Visit Date: 09/26/23 Last Updated by: Brunilda Stockton CNM Note author: Brunilda Stockton CNM. Visit with Certified Activities Director Scouting: Shonda Vincent CMA. 23.5wk. TOM. Taking PNV, Doing well with no concerns. Denies any LOF, VB, abd. pain or urinary symptoms. Good FM. Was admitted to [facility] for several days due to abdominal pain, history of hydronephrosis/renal calculi, records not available. Also seen in the ED here on September 21 for nausea and vomiting. Reviewed: PTL s/s-LOF/Ctx's/VB, when to seek emergent care. Hydrate well, 8-10 glasses of water daily. Plan 28 week labs at next visit. Release records, including FA S results. Advised not to come to the hospital in [place] for -related concerns due to her advanced stage in advised to go to [facility]. Staff to research for FAS results and hospitalization records. RTO 4wks. Visit Date: 08/27/23 Last Updated by: Brunilda Stockton CNM Note author: Brunilda Stockton CNM. 19.3wk. TOM. Taking PNV, Doing well with no concerns. Good appetite, stays well hydrated. Denies any LOF, VB, abd. pain or urinary symptoms. Pt. responds w/single word answers, partner in, no eye/verbal contact. Reviewed: PTL s/s-LOF/Ctx's/VB, when to seek emergent care. FM and when to call the office for further eval. Encouraged a healthy well balanced diet, regular walking/exercise in . Hydrate well, 8-10 glasses of water daily. FAS is booked 09/05/23. RTO 4wks. Visit Date: 07/31/23 Last Updated by: Brunilda Stockton CNM Note author: Brunilda Stockton CNM. 15.4wk. TOM. Taking PNV, Doing well with concerns: nausea, no vomiting. Denies any LOF, VB, abd. pain or urinary symptoms. Quickening noted. Partner in. Reviewed: NT and First screen. LOF/Ctx's/VB, when to seek emergent care. discomforts, self help measures. Rx for B6 sent in. Encouraged a healthy well balanced diet, regular walking/exercise in . Hydrate well, 8-10 glasses of water daily. FAS ordered-4wks RTO 4wks. Visit Date: 07/01/23 Last Updated by: Brunilda Stockton CNM OB Note author: Brunilda Stockton CNM. Visit assisted with the audio visual production specialist services. 11.2wk. OBPE. Taking PNV, Doing well with no concerns. Good appetite, stays well hydrated. Denies any LOF, VB, abd. pain, or urinary symptoms. Reviewed: VB, abdominal/ pelvic pain when to seek emergent care. Rx for PNV sent in again. Encouraged a healthy well balanced diet, regular walking/exercise in . Hydrate well, 8-10 glasses of water daily. Flu vaccine today. NT results pending. RTO 4. Visit Date: 06/09/23 Last Updated by: Niecy Muñiz LPN Leidy is here today for her Nurse intake. with SP audio visual production specialist Tierney, ID # [id number]. . LMP 04/12/23EDD 01/18/24. DAVID by u/s on 06/05/23= DAVID 01/20/24. Pt reports very little nausea, she is able to eat and drink without any problems. She delivered both of her boys in [place], she denies any problems with her pregnancies or deliveries,. and breast fed both boys She lives with her S.O. and their children. Pt is aware she will be delivering at [facility], and transferred if becomes High risk at any point. Discussed with pt NT u/s and genetic testing,that will be done at [facility]. Discussed labs including cf testing and UDS. Discussed with pt, healthy food choices, frozen veggies vs canned, decrease carb intake, such as rice and pasta, avoid sugary drinks, increase H2O to 7-10 glasses daily. Discussed with pt how to reach call center assistant MD after hours. packet given to pt in SP. She is aware to call with any problems or concerns. Pt was brought to front line supervisor for scheduling OB PE. Coding Level of Care Code [place] Diagnoses Encounter for supervision of normal in third trimester Z34.93 Assessment & Plan Assessment & Plan (1) Encounter for supervision of normal in third trimester: Code(s): Z34.93 - Encounter for supervision of normal , unspecified, third trimester Category: Medical
[2023-12-10 13:20] VITALS: BP 118/62; BMI 33.5
== END 2023-12-10 14:09 | disposition home or self-care (01) ==
PROVIDERS: Visit Provider Advanced Practice Midwife
DX: Z34.93 Encounter for supervision of normal pregnancy, unspecified, third trimester (principal)
CPT/HCPCS: 25942

== ENCOUNTER → 2023-12-10 13:00 | Outpatient (BNVA) | payer OTHER, SELFPAY | PROVIDERS: Visit Provider Advanced Practice Midwife | DX: O99.891 Other specified diseases and conditions complicating pregnancy (principal); N13.30 Unspecified hydronephrosis; Z3A.34 34 weeks gestation of pregnancy; Z67.40 Type O blood, Rh positive | CPT/HCPCS: 99212 ==

== ENCOUNTER 2023-12-25 09:43 | Outpatient (REF) | payer OTHER, SELFPAY ==
[2023-12-26 08:51] LABS: Bacterial Vaginosis PCR NEGATIVE (Negative); Candida Group PCR NOT DETECTED (Not Detect); Candida glab krusei PCR NOT DETECTED (Not Detect); Trichomonas vaginalis PCR NOT DETECTED (Not Detect)
[2023-12-26 09:11] LABS: CT PCR NOT DETECTED (Not Detect.); NG PCR NOT DETECTED (Not Detect.)
== END 2023-12-25 09:44 | disposition home or self-care (01) ==
LOC: HO.LAB 09:43
PROVIDERS: Visit Provider Advanced Practice Midwife
DX: Z34.83 Encounter for supervision of other normal pregnancy, third trimester (principal); Z11.3 Encounter for screening for infections with a predominantly sexual mode of transmission
CPT/HCPCS: 0352U; 0353U; 87081; 99212

== ENCOUNTER 2023-12-25 09:43 | Outpatient (AMB) | payer OTHER, SELFPAY ==
--- NOTE | 2023-12-25 09:48 | A.OFFVISPN_ITS ---
Intake Vital Signs 12/25/23 09:50 Height 5 ft 2 in Weight 183 lb BMI 33.5 BP 110/62 Intake Visit Reasons: 2 Week TOM Information Interpreted: clinical only Senior Analytical Chemist: Senior Analytical Chemist Present Allergies aspirin Allergy (Unknown, Verified 12/25/23 09:51) Unknown Penicillins Allergy (Unknown, Verified 12/25/23 09:51) Unknown Medication List - Last Reconciled 12/25/23 by Ewa Fish CNM PNV,calcium 08-cwre-kedtu acid 27 mg iron- 1 mg ( Vitamins Plus Low Iron) 1 tab PO DAILY PFSH Medical History Encounter for supervision of other normal , second trimester Social History Household Members: Significant Other and Children Both parents involved: Yes Housing: Apartment Alcohol intake: former Patient Tobacco Use Status: Never used Tobacco Agree to transfusion: Yes Sexual orientation: Straight/Heterosexual Gender identity: Female Female Reproductive History Menstrual Age of Menarche: 14 Total pregnancies: 4 Full term: 3 History History 4 Elective abortions 0 Para 2 Spontaneous abortions 0 Hx # Term Pregnancies 3 Ectopic pregnancies 0 Hx # Pregnancies 0 Multiple births 0 Past Pregnancies Del. Date GA/Weeks Outcome Route Wt Inf Gender Labor Alysia Anesthesia Location Provider Complicate 07/28/14 40 live - full term 6 lb 5 oz Male 6.5 hours none [place] none 05/19/19 40 live - full term 6 lb 7 oz Male 7 hrs none [place] none Questionnaire History History : 4 Visit DAVID Calculator Estimated Delivery Date Method Current WG Current Estimate 01/18/24 Ultrasound #1 36w 4d Other Estimates 01/17/24 LMP (Certain) 36w 5d Expected Delivery Route/Plan Vaginal delivery Specific Issues/Plans 28 Yr. old G 3 P 2 EDC: 01/17/24 Blood type: O positive Problem List: 1. Renal calculi-right hydronephrosis admitted to [facility] 08/30/2023. 2. Malay-speaking court interpreter required Testing: First Tri screen: Negative NT scan: Normal AFP: nl FAS: nl 28 wk glucose: 142, 3'gtt=74/158/132/81 CBC 1st Tri: 13/39.4 28 wk. 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 Transportation: has own Labor, and Concerns: Labor support: Plan: Feeding Plans: breast and bottle control: OB Visit Log Initial Weight: Not Recorded Date -?-?-?-?-?-?-?-?-?-?-?-?- EGA Weight Gest Week Fundal Ht Present FHR move Efface % Edema BP PrePreg We Weight GTT -?-?-?-?-?-?-?-?-?-?-?-?- Glucose LV Protein Blood Type 06/09/23 -?-?-?-?-?-?-?-?-?-?-?-?- 8w 1d 156 lb 4 oz 156 lb 4 oz -?-?-?-?-?-?-?-?-?-?-?-?- 07/01/23 -?-?-?-?-?-?-?-?-?-?-?-?- 11w 2d 157 lb 11 160 104/54 157 lb -?-?-?-?-?-?-?-?-?-?-?-?- 07/31/23 -?-?-?-?-?-?-?-?-?-?-?-?- 15w 4d 162 lb 15 150 110/52 162 lb -?-?-?-?-?-?-?-?-?-?-?-?- 08/27/23 -?-?-?-?-?-?-?-?-?-?-?-?- 19w 3d 168 lb 19 150 active 110/50 168 lb -?-?-?-?-?-?-?-?-?-?-?-?- 09/26/23 -?-?-?-?-?-?-?-?-?-?-?-?- 23w 5d 166 lb 23 150 active 166 lb -?-?-?-?-?-?-?-?-?-?-?--?- 10/22/23 -?-?-?-?-?-?-?-?-?-?-?-?- 27w 3d 174 lb 28 140 active 174 lb -?-?-?-?-?-?-?-?-?-?-?-?- 11/12/23 -?-?-?-?-?-?-?-?-?-?-?-?- 30w 3d 179 lb 30 ? 150 active 108/ 52 179 lb -?-?-?-?-?-?-?-?-?-?-?-?- 11/26/23 -?-?-?-?-?-?-?-?-?-?-?-?- 32w 3d 181 lb 32.5 ?vtx 140 active 110/52 181 lb -?-?-?-?-?-?-?-?-?-?-?-?- 12/10/23 -?-?-?-?-?-?-?-?-?-?-?-?- 34w 3d 183 lb 35 ?vtx 140 active 1 183 lb -?-?-?-?-?-?-?-?-?-?-?-?- 12/25/23 -?-?-?-?-?--?-?-?-?-?-?-?- 36w 4d 183 lb term 36 vtx/MINOO 150 active 1 183 lb -?-?-?-?-?-?-?-?-?-?-?-?- Notes Visit Date: 12/25/23 Last Updated by: Ewa Fish CNM Patient is here with her for her 36 weeks and 4 day visit at the [facility] she did not bring her young son today. She has not having any problems baby's moving she did not get Tdap vaccine yet see previous visits for details. She says she can go today to the hospital front end mechanic will call and see if an appointment is available today when the RN is there. EFW today about 6 lb. Speculum exam done for cultures and group B strep culture. Cervix appears pink smooth healthy multiparous it is long thick closed very very soft presentation definitely vertex, ballotable. She says she does not have a primary care provider but she brings her children to the [facility] here for pediatric care I suggest she check at 1 of the front end mechanic about registering here for care for herself as it is baumann to have a primary care provider as 1 gets older. For control she plans to use Depo-Provera and she is very clear about. She does not have any other questions she and her say they no way to go when she is in labor I reviewed the signs and symptoms of labor and what other indications would necessitate going to the hospital. They have transportation. Visit Date: 12/10/23 Last Updated by: Ewa Fish CNM Patient is here for her visit with her and son. She has not having any problems at all she said she did go to the hospital to get the vaccine but there was some misunderstanding and the were not able to give it then it develops a might of been a day there was no nurse in the office. She has not having any other concerns this time her son again helped listen to the heart rate and was very interested listening to every family member with the that is go. She has not having any contractions or difficulties we have already discussed and bottle-feeding and control. Her next visit will be in 2 weeks with cultures and I let her know about so she can plan accordingly. She is going to get an appointment to go up to the hospital when the nurse is available to give the vaccine (Tdap). Visit Date: 11/26/23 Last Updated by: Ewa Fish CNM Patient is here with her and young son for her visit at 32 weeks and 3 days. She has not having any problems she says she is taking her iron the baby is moving a lot she has not having any pain or contractions or anything that is worrisome at all. She is planning on breast and bottle feeding I reviewed that if she gives a bottle early in her baby's life she will have less milk in it workout as well she says she knows this. She plans on using Depo-Provera for control as she used it before. I offered her the Tdap vaccine and she is open to it and so she can be seen at the hospital office for the Tdap vaccine any time in the next couple of weeks. We will see her in 2 weeks. Visit Date: 11/12/23 Last Updated by: Ewa Fish CNM Patient is here at [facility] with her partner her Young son for her visit, at 30 weeks 3 days. She says baby is moving well she has no complaints at all today she answer questions in one-word answers. She said she has not taking any iron nobody told her to take it reminded her that there is a prescription out there for her to take on because she is a little bit anemic I reviewed her 1 hour and 3 hour sugar tests. I asked her if she is drinking lots of water for general health in kidneys and she said she was not a recommended she try to increase her water intake to try and help prevent recurrence her kidney infection and kidney stones and reminded her if she had any symptoms of fever chills with pain or any other problems to return to [facility] for care. Her abdomen was soft no contractions and negative CVAT, She does know she will be delivering at [facility]. she lives in [place] but it is closer to [place] than [facility]. She says she had no difficulty with her other 2 deliveries in [place]. RTC 2 weeks Visit Date: 10/22/23 Last Updated by: Brunilda Stockton CNM Note author: Brunilda Stockton CNM. 27.2wk. TOM. Taking PNV, Doing well with no concerns. Good appetite, stays well hydrated. Denies any LOF, VB, abd. pain or urinary symptoms. Partner present. 28wk wk. labs ordered. EPDS=1. Reviewed: PTL s/s-LOF/Ctx's/VB, when to seek emergent care. discomforts, self help measures. FM and when to call the office for further eval. Encouraged a healthy well balanced diet, regular walking/exercise in . Hydrate well, 8-10 glasses of water daily. RTO 3wks. Visit Date: 09/26/23 Last Updated by: Brunilda Stockton CNM Note author: Brunilda Stockton CNM. Visit with Certified Anthropological Linguist: Shonda Vincent CMA. 23.5wk. TOM. Taking PNV, Doing well with no concerns. Denies any LOF, VB, abd. pain or urinary symptoms. Good FM. Was admitted to [facility] for several days due to abdominal pain, history of hydronephrosis/renal calculi, records not available. Also seen in the ED here on September 21 for nausea and vomiting. Reviewed: PTL s/s-LOF/Ctx's/VB, when to seek emergent care. Hydrate well, 8-10 glasses of water daily. Plan 28 week labs at next visit. Release records, including FA S results. Advised not to come to the hospital in [place] for -related concerns due to her advanced stage in advised to go to [facility]. Staff to research for FAS results and hospitalization records. RTO 4wks. Visit Date: 08/27/23 Last Updated by: Brunilda Stockton CNM Note author: Brunilda Stockton CNM. 19.3wk. TOM. Taking PNV, Doing well with no concerns. Good appetite, stays well hydrated. Denies any LOF, VB, abd. pain or urinary symptoms. Pt. responds w/single word answers, partner in, no eye/verbal contact. Reviewed: PTL s/s-LOF/Ctx's/VB, when to seek emergent care. FM and when to call the office for further eval. Encouraged a healthy well balanced diet, regular walking/exercise in . Hydrate well, 8-10 glasses of water daily. FAS is booked 09/05/23. RTO 4wks. Visit Date: 07/31/23 Last Updated by: Brunilda Stockton CNM Note author: Brunilda Stockton CNM. 15.4wk. TOM. Taking PNV, Doing well with concerns: nausea, no vomiting. Denies any LOF, VB, abd. pain or urinary symptoms. Quickening noted. Partner in. Reviewed: NT and First screen. LOF/Ctx's/VB, when to seek emergent care. discomforts, self help measures. Rx for B6 sent in. Encouraged a healthy well balanced diet, regular walking/exercise in . Hydrate well, 8-10 glasses of water daily. FAS ordered-4wks RTO 4wks. Visit Date: 07/01/23 Last Updated by: Brunilda Stockton CNM OB Note author: Brunilda Stockton CNM. Visit assisted with the court interpreter services. 11.2wk. OBPE. Taking PNV, Doing well with no concerns. Good appetite, stays well hydrated. Denies any LOF, VB, abd. pain, or urinary symptoms. Reviewed: VB, abdominal/ pelvic pain when to seek emergent care. Rx for PNV sent in again. Encouraged a healthy well balanced diet, regular walking/exercise in . Hydrate well, 8-10 glasses of water daily. Flu vaccine today. NT results pending. RTO 4. Visit Date: 06/09/23 Last Updated by: Niecy Muñiz LPN Leidy is here today for her Nurse intake. with SP court interpreter Tierney, ID # [id number]. . LMP 04/12/23EDD 01/18/24. DAVID by u/s on 06/05/23= DAVID 01/20/24. Pt reports very little nausea, she is able to eat and drink without any problems. She delivered both of her boys in [place], she denies any problems with her pregnancies or deliveries,. and breast fed both boys She lives with her S.O. and their children. Pt is aware she will be delivering at [facility] and transferred if becomes High risk at any point. Discussed with pt NT u/s and genetic testing,that will be done at [facility]. Discussed labs including cf testing and UDS. Discussed with pt, healthy food choices, frozen veggies vs canned, decrease carb intake, such as rice and pasta, avoid sugary drinks, increase H2O to 7-10 glasses daily. Discussed with pt how to reach call center dispatcher MD after hours. packet given to pt in SP. She is aware to call with any problems or concerns. Pt was brought to front end mechanic for scheduling OB PE. Coding Level of Care Code [place] Diagnoses Encounter for supervision of normal in third trimester Z34.93 Immunization due Z23 Assessment & Plan Assessment & Plan (1) Encounter for supervision of normal in third trimester: Code(s): Z34.93 - Encounter for supervision of normal , unspecified, third trimester Category: Medical (2) Immunization due: Code(s): Z23 - Encounter for immunization Category: Medical
[2023-12-25 09:50] VITALS: BP 110/62; BMI 33.5
== END 2023-12-25 10:16 | disposition home or self-care (01) ==
LOC: HO.HWSM 09:43
PROVIDERS: Visit Provider Advanced Practice Midwife
DX: Z34.93 Encounter for supervision of normal pregnancy, unspecified, third trimester (principal); Z23 Encounter for immunization
CPT/HCPCS: 25942

== ENCOUNTER 2023-12-25 10:24 | Outpatient (REF) | payer OTHER, SELFPAY | END 2023-12-25 10:25 | disposition home or self-care (01) | LOC: HO.LNP 10:24 | PROVIDERS: Visit Provider Advanced Practice Midwife | DX: Z34.93 Encounter for supervision of normal pregnancy, unspecified, third trimester (principal); Z23 Encounter for immunization | CPT/HCPCS: 90471; 90715; 99211 ==

== ENCOUNTER 2024-01-01 09:52 | Outpatient (AMB) | payer OTHER, SELFPAY ==
--- NOTE | 2024-01-01 09:59 | MHC.OFFVISPN ---
Intake Vital Signs 01/01/24 10:01 Height 5 ft 2 in Weight 184 lb BMI 33.7 BP 110/62 Intake Visit Reasons: TOM Car Tester Required: No Allergies aspirin Allergy (Unknown, Verified 01/01/24 10:02) Unknown Penicillins Allergy (Unknown, Verified 01/01/24 10:02) Unknown [facility] Medical History Encounter for supervision of other normal , second trimester Social History Household Members: Significant Other and Children Both parents involved: Yes Housing: Apartment Alcohol intake: former Patient Tobacco Use Status: Never used Tobacco Agree to transfusion: Yes Sexual orientation: Straight/Heterosexual Gender identity: Female Female Reproductive History Menstrual Age of Menarche: 14 History History 4 Elective abortions 0 Para 2 Spontaneous abortions 0 Hx # Term Pregnancies 3 Ectopic pregnancies 0 Hx # Pregnancies 0 Multiple births 0 Past Pregnancies Del. Date GA/Weeks Outcome Route Wt Inf Gender Labor Alysia Anesthesia Location Provider Complicate 07/28/14 40 live - full term 6 lb 5 oz Male 6.5 hours none [place] none 05/19/19 40 live - full term 6 lb 7 oz Male 7 hrs none [place] none Visit DAVID Calculator Estimated Delivery Date Method Current WG Current Estimate 01/18/24 Ultrasound #1 37w 4d Other Estimates 01/17/24 LMP (Certain) 37w 5d Expected Delivery Route/Plan Vaginal delivery Specific Issues/Plans 28 Yr. old G 3 P 2 EDC: 01/17/24 Blood type: O positive Problem List: 1. Renal calculi-right hydronephrosis admitted to [facility] 08/30/2023. 2. Kyrgyz-speaking child care education coordinator required Testing: First Tri screen: Negative NT scan: Normal AFP: nl FAS: nl 28 wk glucose: 142, 3'gtt=74/158/132/81 CBC 1st Tri: 1339.4 28 wk. CBC: 10.5/31.6 GBS: Negative. 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 Transportation: has own Labor, and Concerns: Labor support: Plan: Infant Feeding Plans: breast and bottle control: OB Visit Log Initial Weight: Not Recorded Date <del>?</del> EGA Weight Gest Week Fundal Ht Present FHR move Efface % Edema BP PrePreg We Weight GTT <del>?</del> Glucose LV Protein Blood Type 06/09/23 <del>?</del> 8w 1d 156 lb 4 oz 156 lb 4 oz <del>?</del> 07/01/23 <del>?</del> 11w 2d 157 lb 11 160 104/54 157 lb <del>?</del> 07/31/23 <del>?</del> 15w 4d 162 lb 15 150 110/52 162 lb <del>?</del> 08/27/23 <del>?</del> 19w 3d 168 lb 19 150 active 110/50 168 lb <del>?</del> 09/26/23 <del>?</del> 23w 5d 166 lb 23 150 active 108/62 166 lb <del>?</del> 10/22/23 <del>?</del> 27w 3d 174 lb 28 140 active 104/62 174 lb <del>?</del> 11/12/23 <del>?</del> 30w 3d 179 lb 30 ? 150 active 108/52 179 lb <del>?</del> 11/26/23 <del>?</del> 32w 3d 181 lb 32.5 ?vtx 140 active 110/52 181 lb <del>?</del> 12/10/23 <del>?</del> 34w 3d 183 lb 35 ?vtx 140 active 118/62 183 lb <del>?</del> 12/25/23 <del>?</del> 36w 4d 183 lb term 36 vtx/MINOO 150 active 110/62 183 lb <del>?</del> 01/01/24 <del>?</del> 37w 4d 184 lb term 37 vtx LOP 150 active 110/62 184 lb <del>?</del> Notes Visit Date: 01/01/24 Last Updated by: Ewa Fish CNM Patient is here with her at 37 weeks and 4 days at the [facility]. She has not having any contractions she is feeling the baby very very active and feels more pressure she is not too worried about labor she is says she delivered fine previously she is planning Depo-Provera afterwards she knows where to go and he knows where to bring her if she is having any signs of labor and I reviewed them again today or any decreased movement. He is very tired today because he has been up since 4 in the morning he had his bottom teeth pulled. They are getting ready for her to take care of 2 babies because she blends all his food!. They are getting ready he will be caring for the other children when she is in hospital but he is also her ride and support. Review that all her testing including group B strep was completely negative we will see her next week. Visit Date: 12/25/23 Last Updated by: Ewa Fish CNM Patient is here with her for her 36 weeks and 4 day visit at the [facility] she did not bring her young son today. She has not having any problems baby's moving she did not get Tdap vaccine yet see previous visits for details. She says she can go today to the hospital front office clerk will call and see if an appointment is available today when the RN is there. EFW today about 6 lb. Speculum exam done for cultures and group B strep culture. Cervix appears pink smooth healthy multiparous it is long thick closed very very soft presentation definitely vertex, ballotable. She says she does not have a primary care provider but she brings her children to the [facility] here for pediatric care I suggest she check at 1 of the front office clerk about registering here for care for herself as it is baumann to have a primary care provider as 1 gets older. For control she plans to use Depo-Provera and she is very clear about. She does not have any other questions she and her say they no way to go when she is in labor I reviewed the signs and symptoms of labor and what other indications would necessitate going to the hospital. They have transportation. Visit Date: 12/10/23 Last Updated by: Ewa Fish CNM Patient is here for her visit with her and son. She has not having any problems at all she said she did go to the hospital to get the vaccine but there was some misunderstanding and the were not able to give it then it develops a might of been a day there was no nurse in the office. She has not having any other concerns this time her son again helped listen to the heart rate and was very interested listening to every family member with the that is go. She has not having any contractions or difficulties we have already discussed and bottle-feeding and control. Her next visit will be in 2 weeks with cultures and I let her know about so she can plan accordingly. She is going to get an appointment to go up to the hospital when the nurse is available to give the vaccine (Tdap). Visit Date: 11/26/23 Last Updated by: Ewa Fish CNM Patient is here with her and young son for her visit at 32 weeks and 3 days. She has not having any problems she says she is taking her iron the baby is moving a lot she has not having any pain or contractions or anything that is worrisome at all. She is planning on breast and bottle feeding I reviewed that if she gives a bottle early in her baby's life she will have less milk in it workout as well she says she knows this. She plans on using Depo-Provera for control as she used it before. I offered her the Tdap vaccine and she is open to it and so she can be seen at the hospital office for the Tdap vaccine any time in the next couple of weeks. We will see her in 2 weeks. Visit Date: 11/12/23 Last Updated by: Ewa Fish CNM Patient is here at [facility] with her partner her Young son for her visit, at 30 weeks 3 days. She says baby is moving well she has no complaints at all today she answer questions in one-word answers. She said she has not taking any iron nobody told her to take it reminded her that there is a prescription out there for her to take on because she is a little bit anemic I reviewed her 1 hour and 3 hour sugar tests. I asked her if she is drinking lots of water for general health in kidneys and she said she was not a recommended she try to increase her water intake to try and help prevent recurrence her kidney infection and kidney stones and reminded her if she had any symptoms of fever chills with pain or any other problems to return to [facility] for care. Her abdomen was soft no contractions and negative CVAT, She does know she will be delivering at [facility]. she lives in [place] but it [place] closer to [place] than [facility]. She says she had no difficulty with her other 2 deliveries in [place]. RTC 2 weeks Visit Date: 10/22/23 Last Updated by: Brunilda Stockton CNM Note author: Brunilda Stockton CNM. 27.2wk. TOM. Taking PNV, Doing well with no concerns. Good appetite, stays well hydrated. Denies any LOF, VB, abd. pain or urinary symptoms. Partner present. 28wk wk. labs ordered. EPDS=1. Reviewed: PTL s/s-LOF/Ctx's/VB, when to seek emergent care. discomforts, self help measures. FM and when to call the office for further eval. Encouraged a healthy well balanced diet, regular walking/exercise in . Hydrate well, 8-10 glasses of water daily. RTO 3wks. Visit Date: 09/26/23 Last Updated by: Brunilda Stockton CNM Note author: Brunilda Stockton CNM. Visit with Certified Car Tester: Shonda Vincent CMA. 23.5wk. TOM. Taking PNV, Doing well with no concerns. Denies any LOF, VB, abd. pain or urinary symptoms. Good FM. Was admitted to [facility] for several days due to abdominal pain, history of hydronephrosis/renal calculi, records not available. Also seen in the ED here on September 21 for nausea and vomiting. Reviewed: PTL s/s-LOF/Ctx's/VB, when to seek emergent care. Hydrate well, 8-10 glasses of water daily. Plan 28 week labs at next visit. Release records, including FA S results. Advised not to come to the hospital in [place] for -related concerns due to her advanced stage in advised to go to [facility]. Staff to research for FAS results and hospitalization records. RTO 4wks. Visit Date: 08/27/23 Last Updated by: Brunilda Stockton CNM Note author: Brunilda Stockton CNM. 19.3wk. TOM. Taking PNV, Doing well with no concerns. Good appetite, stays well hydrated. Denies any LOF, VB, abd. pain or urinary symptoms. Pt. responds w/single word answers, partner in, no eye/verbal contact. Reviewed: PTL s/s-LOF/Ctx's/VB, when to seek emergent care. FM and when to call the office for further eval. Encouraged a healthy well balanced diet, regular walking/exercise in . Hydrate well, 8-10 glasses of water daily. FAS is booked 09/05/23. RTO 4wks. Visit Date: 07/31/23 Last Updated by: Brunilda Stockton CNM Note author: Brunilda Stockton CNM. 15.4wk. TOM. Taking PNV, Doing well with concerns: nausea, no vomiting. Denies any LOF, VB, abd. pain or urinary symptoms. Quickening noted. Partner in. Reviewed: NT and First screen. LOF/Ctx's/VB, when to seek emergent care. discomforts, self help measures. Rx for B6 sent in. Encouraged a healthy well balanced diet, regular walking/exercise in . Hydrate well, 8-10 glasses of water daily. FAS ordered-4wks RTO 4wks. Visit Date: 07/01/23 Last Updated by: Brunilda Stockton CNM OB Note author: Brunilda Stockton CNM. Visit assisted with the child care education coordinator services. 11.2wk. OBPE. Taking PNV, Doing well with no concerns. Good appetite, stays well hydrated. Denies any LOF, VB, abd. pain, or urinary symptoms. Reviewed: VB, abdominal/ pelvic pain when to seek emergent care. Rx for PNV sent in again. Encouraged a healthy well balanced diet, regular walking/exercise in . Hydrate well, 8-10 glasses of water daily. Flu vaccine today. NT results pending. RTO 4. Visit Date: 06/09/23 Last Updated by: DAPHNEY Carbone is here today for her Nurse intake. with [place] child care education coordinator Tierney, ID # [id number]. . LMP 04/12/23EDD 01/18/24. DAVID by u/s on 06/05/23= DAVID 01/20/24. Pt reports very little nausea, she is able to eat and drink without any problems. She delivered both of her boys in [place], she denies any problems with her pregnancies or deliveries,. and breast fed both boys She lives with her S.O. and their children. Pt is aware she will be delivering at [facility], and transferred if becomes High risk at any point. Discussed with pt NT u/s and genetic testing,that will be done at [facility]. Discussed labs including cf testing and UDS. Discussed with pt, healthy food choices, frozen veggies vs canned, decrease carb intake, such as rice and pasta, avoid sugary drinks, increase H2O to 7-10 glasses daily. Discussed with pt how to reach yardage caller MD after hours. packet given to pt in [place]. She is aware to call with any problems or concerns. Pt was brought to front office clerk for scheduling OB PE. Coding Level of Care Code [place] Diagnoses Encounter for supervision of normal in third trimester Z34.93 Assessment & Plan Assessment & Plan (1) Encounter for supervision of normal in third trimester: Code(s): Z34.93 - Encounter for supervision of normal , unspecified, third trimester Category: Medical
[2024-01-01 10:01] VITALS: BP 110/62; BMI 33.7
== END 2024-01-01 10:57 | disposition home or self-care (01) ==
LOC: HO.HWSM 09:52
PROVIDERS: Visit Provider Advanced Practice Midwife
DX: Z34.93 Encounter for supervision of normal pregnancy, unspecified, third trimester (principal)
CPT/HCPCS: 25942

== ENCOUNTER → 2024-01-01 09:52 | Outpatient (BNVA) | payer OTHER, SELFPAY | PROVIDERS: Visit Provider Advanced Practice Midwife | DX: Z34.83 Encounter for supervision of other normal pregnancy, third trimester (principal); Z3A.37 37 weeks gestation of pregnancy | CPT/HCPCS: 99212 ==

== ENCOUNTER 2024-01-08 12:58 | Outpatient (AMB) | payer OTHER, SELFPAY ==
[2024-01-08 13:13] VITALS: BP 116/62; BMI 33.8
--- NOTE | 2024-01-08 13:13 | A.OFFVISPN_ITS ---
Intake Vital Signs 01/08/24 13:13 Height 5 ft 2 in Weight 185 lb BMI 33.8 BP 116/62 Intake Visit Reasons: TOM 1 week follow up Information Interpreted: clinical only Sammying Machine Operator: Sammying Machine Operator Present Allergies aspirin Allergy (Unknown, Verified 01/08/24 13:14) Unknown Penicillins Allergy (Unknown, Verified 01/08/24 13:14) Unknown Medication List - Last Reconciled 01/08/24 by Ewa Fish CNM PNV,calcium [id number] acid 27 mg iron- 1 mg ( Vitamins Plus Low Iron) 1 tab PO DAILY PFSH Medical History Encounter for supervision of other normal , second trimester Social History Household Members: Significant Other and Children Both parents involved: Yes Housing: Apartment Alcohol intake: former Patient Tobacco Use Status: Never used Tobacco Agree to transfusion: Yes Sexual orientation: Straight/Heterosexual Gender identity: Female Female Reproductive History Menstrual Age of Menarche: 14 History History 4 Elective abortions 0 Para 2 Spontaneous abortions 0 Hx # Term Pregnancies 3 Ectopic pregnancies 0 Hx # Pregnancies 0 Multiple births 0 Past Pregnancies Del. Date GA/Weeks Outcome Route Wt Inf Gender Labor Alysia Anesthesia Location Provider Complicate 07/28/14 40 live - full term 6 lb 5 oz Male 6.5 hours none [place] none 05/19/19 40 live - full term 6 lb 7 oz Male 7 hrs none [place] none Visit DAVID Calculator Estimated Delivery Date Method Current WG Current Estimate 01/18/24 Ultrasound #1 38w 4d Other Estimates 01/17/24 LMP (Certain) 38w 5d Expected Delivery Route/Plan Vaginal delivery Specific Issues/Plans 28 Yr. old G 3 P 2 EDC: 01/17/24 Blood type: O positive Problem List: 1. Renal calculi-right hydronephrosis admitted to [facility] 08/30/2023. 2. 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 CBC: 10.5/31.6 GBS: Negative. 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 Transportation: has own Labor, and Concerns: Labor support: Plan: Anticipating an uncomplicated vaginal , states had no problems with the other deliveries in [place] Infant Feeding Plans: breast and bottle control: Depo-Provera OB Visit Log Initial Weight: Not Recorded Date -?-?-?-?-?-?-?-?-?-?-?-?- EGA Weight Gest Week Fundal Ht Present FHR move Efface % Edema BP PrePreg We Weight GTT -?-?-?-?-?-?-?-?-?-?-?-?- Glucose LV Protein Blood Type 06/09/23 -?-?-?-?-?-?-?-?-?-?-?-?- 8w 1d 156 lb 4 oz 156 lb 4 oz -?-?-?-?--?-?-?-?-?-?-?-?- 07/01/23 -?-?-?-?-?-?-?-?-?-?-?-?- 11w 2d 157 lb 11 160 104/54 157 lb -?-?-?-?-?-?-?-?-?-?-?-?- 07/31/23 -?-?-?-?-?-?-?-?-?-?-?-?- 15w 4d 162 lb 15 150 110/52 162 lb -?-?-?-?-?-?-?-?-?-?-?-?- 08/27/23 -?-?--?-?-?-?-?-?-?-?-?-?- 19w 3d 168 lb 19 150 active 110/50 168 lb -?-?-?-?-?-?-?-?-?-?-?-?- 09/26/23 -?-?-?-?-?-?-?-?-?-?-?-?- 23w 5d 166 lb 23 150 active 166 lb -?-?-?-?-?-?-?-?-?-?-?-?- 10/22/23 -?-?-?-?-?-?-?-?-?-?-?-?- 27w 3d 174 lb 28 140 active 174 lb -?-?-?-?-?-?-?-?-?-?-?-?- 11/12/23 -?-?-?-?-?-?-?-?-?-?-?-?- 30w 3d 179 lb 30 ? 150 active 108/ 52 179 lb -?-?-?-?-?-?-?-?-?-?-?-?- 11/26/23 -?-?-?-?-?-?-?-?-?-?-?-?- 32w 3d 181 lb 32.5 ?vtx 140 active 110/52 181 lb -?-?-?-?-?-?-?-?-?-?-?-?- 12/10/23 -?-?-?-?-?-?-?-?-?-?-?-?- 34w 3d 183 lb 35 ?vtx 140 active 1 183 lb -?-?-?-?-?-?-?-?-?-?-?-?- 12/25/23 -?-?-?-?-?-?-?-?-?-?-?-?- 36w 4d 183 lb term 36 vtx/MINOO 150 active 1 183 lb -?-?-?-?-?-?-?-?-?-?-?-?- 01/01/24 -?-?-?-?-?-?-?-?-?-?-?-?- 37w 4d 184 lb term 37 vtx LOP 150 active 1 184 lb -?-?-?-?-?-?-?-?-?-?-?-?- 01/08/24 -?-?-?-?-?-?-?-?-?-?-?-?- 38w 4d 185 lb term 38 LOP/LOT 150 active 1 185 lb -?-?-?-?-?-?-?-?-?-?-?-?- Notes Visit Date: 01/08/24 Last Updated by: Ewa Fish CNM Patient is here with her and son for her visit at 35 weeks and 4 days. She has having a few contractions nothing regular she has feeling a little bit more pressure and more discharge nothing that worries her she is feeling fine her baby is moving well she denies any symptoms of headaches epigastric pain of the pain or swelling. She is feeling ready but relaxed. Th ey have transportation when she goes into labor. He plans to be with her though he will also be caring for the children. He had his teeth taken out so his mouth is sore. RTC 1 week unless delivered she says she has appointments already. Visit Date: 01/01/24 Last Updated by: Ewa Fish CNM Patient is here with her at 37 weeks and 4 days at the [facility]. She has not having any contractions she is feeling the baby very very active and feels more pressure she is not too worried about labor she is says she delivered fine previously she is planning Depo-Provera afterwards she knows where to go and he knows where to bring her if she is having any signs of labor and I reviewed them again today or any decreased movement. He is very tired today because he has been up since 4 in the morning he had his bottom teeth pulled. They are getting ready for her to take care of 2 babies because she blends all his food!. They are getting ready he will be caring for the other children when she is in hospital but he is also her ride and support. Review that all her testing including group B strep was completely negative we will see her next week. Visit Date: 12/25/23 Last Updated by: Ewa Fish CNM Patient is here with her for her 36 weeks and 4 day visit at the [facility] she did not bring her young son today. She has not having any problems baby's moving she did not get Tdap vaccine yet see previous visits for details. She says she can go today to the hospital net front end developer will call and see if an appointment is available today when the RN is there. EFW today about 6 lb. Speculum exam done for cultures and group B strep culture. Cervix appears pink smooth healthy multiparous it is long thick closed very very soft presentation definitely vertex, ballotable. She says she does not have a primary care provider but she brings her children to the [facility] here for pediatric care I suggest she check at 1 of the net front end developer about registering here for care for herself as it is baumann to have a primary care provider as 1 gets older. For control she plans to use Depo-Provera and she is very clear about. She does not have any other questions she and her say they no way to go when she is in labor I reviewed the signs and symptoms of labor and what other indications would necessitate going to the hospital. They have transportation. Visit Date: 12/10/23 Last Updated by: Ewa Fish CNM Patient is here for her visit with her and son. She has not having any problems at all she said she did go to the hospital to get the vaccine but there was some misunderstanding and the were not able to give it then it develops a might of been a day there was no nurse in the office. She has not having any other concerns this time her son again helped listen to the heart rate and was very interested listening to every family member with the that is go. She has not having any contractions or difficulties we have already discussed and bottle-feeding and control. Her next visit will be in 2 weeks with cultures and I let her know about so she can plan accordingly. She is going to get an appointment to go up to the hospital when the nurse is available to give the vaccine (Tdap). Visit Date: 11/26/23 Last Updated by: Ewa Fish CNM Patient is here with her and young son for her visit at 32 weeks and 3 days. She has not having any problems she says she is taking her iron the baby is moving a lot she has not having any pain or contractions or anything that is worrisome at all. She is planning on breast and bottle feeding I reviewed that if she gives a bottle early in her baby's life she will have less milk in it workout as well she says she knows this. She plans on using Depo-Provera for control as she used it before. I offered her the Tdap vaccine and she is open to it and so she can be seen at the hospital office for the Tdap vaccine any time in the next couple of weeks. We will see her in 2 weeks. Visit Date: 11/12/23 Last Updated by: Ewa Fish CNM Patient is here at [facility] with her partner her Young son for her visit, at 30 weeks 3 days. She says baby is moving well she has no complaints at all today she answer questions in one-word answers. She said she has not taking any iron nobody told her to take it reminded her that there is a prescription out there for her to take on because she is a little bit anemic I reviewed her 1 hour and 3 hour sugar tests. I asked her if she is drinking lots of water for general health in kidneys and she said she was not a recommended she try to increase her water intake to try and help prevent recurrence her kidney infection and kidney stones and reminded her if she had any symptoms of fever chills with pain or any other problems to return to [facility] for care. Her abdomen was soft no contractions and negative CVAT, She does know she will be delivering at [facility]. she lives in [place] but it is closer to [place] than [facility]. She says she had no difficulty with her other 2 deliveries in [place]. RTC 2 weeks Visit Date: 10/22/23 Last Updated by: Brunilda Stockton CNM Note author: Brunilda Sotckton CNM. 27.2wk. TOM. Taking PNV, Doing well with no concerns. Good appetite, stays well hydrated. Denies any LOF, VB, abd. pain or urinary symptoms. Partner present. 28wk wk. labs ordered. EPDS=1. Reviewed: PTL s/s-LOF/Ctx's/VB, when to seek emergent care. discomforts, self help measures. FM and when to call the office for further eval. Encouraged a healthy well balanced diet, regular walking/exercise in . Hydrate well, 8-10 glasses of water daily. RTO 3wks. Visit Date: 09/26/23 Last Updated by: Brunilda Stockton CNM Note author: Brunilda Stockton CNM. Visit with Certified Rn Eligibility: Shonda Vincent CMA. 23.5wk. TOM. Taking PNV, Doing well with no concerns. Denies any LOF, VB, abd. pain or urinary symptoms. Good FM. Was admitted to [facility] for several days due to abdominal pain, history of hydronephrosis/renal calculi, records not available. Also seen in the ED here on September 21 for nausea and vomiting. Reviewed: PTL s/s-LOF/Ctx's/VB, when to seek emergent care. Hydrate well, 8-10 glasses of water daily. Plan 28 week labs at next visit. Release records, including FA S results. Advised not to come to the hospital in [place] for -related concerns due to her advanced stage in advised to go to [facility]. Staff to research for FAS results and hospitalization records. RTO 4wks. Visit Date: 08/27/23 Last Updated by: Brunilda Stockton CNM Note author: Brunilda Stockton CNM. 19.3wk. TOM. Taking PNV, Doing well with no concerns. Good appetite, stays well hydrated. Denies any LOF, VB, abd. pain or urinary symptoms. Pt. responds w/single word answers, partner in, no eye/verbal contact. Reviewed: PTL s/s-LOF/Ctx's/VB, when to seek emergent care. FM and when to call the office for further eval. Encouraged a healthy well balanced diet, regular walking/exercise in . Hydrate well, 8-10 glasses of water daily. FAS is booked 09/05/23. RTO 4wks. Visit Date: 07/31/23 Last Updated by: Brunilda Stockton CNM Note author: Brunilda Stockton CNM. 15.4wk. TOM. Taking PNV, Doing well with concerns: nausea, no vomiting. Denies any LOF, VB, abd. pain or urinary symptoms. Quickening noted. Partner in. Reviewed: NT and First screen. LOF/Ctx's/VB, when to seek emergent care. discomforts, self help measures. Rx for B6 sent in. Encouraged a healthy well balanced diet, regular walking/exercise in . Hydrate well, 8-10 glasses of water daily. FAS ordered-4wks RTO 4wks. Visit Date: 07/01/23 Last Updated by: Brunilda Stockton CNM OB Note author: Brunilda Stockton CNM. Visit assisted with the shaper setter services. 11.2wk. OBPE. Taking PNV, Doing well with no concerns. Good appetite, stays well hydrated. Denies any LOF, VB, abd. pain, or urinary symptoms. Reviewed: VB, abdominal/ pelvic pain when to seek emergent care. Rx for PNV sent in again. Encouraged a healthy well balanced diet, regular walking/exercise in . Hydrate well, 8-10 glasses of water daily. Flu vaccine today. NT results pending. RTO 4. Visit Date: 06/09/23 Last Updated by: Niecy Muñiz LPN Leidy is here today for her Nurse intake. with SP shaper setter Tierney, ID # [id number]. . LMP 04/12/23EDD 01/18/24. DAVID by u/s on 06/05/23= DAVID 01/20/24. Pt reports very little nausea, she is able to eat and drink without any problems. She delivered both of her boys in [place], she denies any problems with her pregnancies or deliveries,. and breast fed both boys She lives with her S.O. and their children. Pt is aware she will be delivering at [facility], and transferred if becomes High risk at any point. Discussed with pt NT u/s and genetic testing,that will be done at [facility]. Discussed labs including cf testing and UDS. Discussed with pt, healthy food choices, frozen veggies vs canned, decrease carb intake, such as rice and pasta, avoid sugary drinks, increase H2O to 7-10 glasses daily. Discussed with pt how to reach scallop dredger MD after hours. packet given to pt in SP. She is aware to call with any problems or concerns. Pt was brought to net front end developer for scheduling OB PE. Coding Level of Care Code [place] Diagnoses Encounter for supervision of normal in third trimester Z34.93 Assessment & Plan Assessment & Plan (1) Encounter for supervision of normal in third trimester: Code(s): Z34.93 - Encounter for supervision of normal , unspecified, third trimester Category: Medical
== END 2024-01-08 13:29 | disposition home or self-care (01) ==
LOC: HO.HWSM 12:58
PROVIDERS: Visit Provider Advanced Practice Midwife
DX: Z34.93 Encounter for supervision of normal pregnancy, unspecified, third trimester (principal)
CPT/HCPCS: 25942

== ENCOUNTER → 2024-01-08 12:58 | Outpatient (BNVA) | payer OTHER, SELFPAY | PROVIDERS: Visit Provider Advanced Practice Midwife | DX: Z34.83 Encounter for supervision of other normal pregnancy, third trimester (principal); Z3A.38 38 weeks gestation of pregnancy | CPT/HCPCS: 99212 ==

== ENCOUNTER 2024-01-15 10:26 | Outpatient (AMB) | payer OTHER, SELFPAY ==
[2024-01-15 10:49] VITALS: BP 108/60; BMI 34.0
--- NOTE | 2024-01-15 10:49 | A.OFFVISPN_ITS ---
Intake Vital Signs 01/15/24 10:49 Height 5 ft 2 in Weight 186 lb BMI 34.0 BP 108/60 Intake Visit Reasons: TOM 1 week follow up Information Interpreted: clinical only Brim Pouncing Machine Operator: Brim Pouncing Machine Operator Present Allergies aspirin Allergy (Unknown, Verified 01/15/24 10:50) Unknown Penicillins Allergy (Unknown, Verified 01/15/24 10:50) Unknown Medication List - Last Reconciled 01/15/24 by Ewa Fish CNM PNV,calcium 48-uiqi-rikcc acid 27 mg iron- 1 mg ( Vitamins Plus Low Iron) 1 tab PO DAILY PFSH Medical History Encounter for supervision of other normal , second trimester Social History Household Members: Significant Other and Children Both parents involved: Yes Housing: Apartment Alcohol intake: former Patient Tobacco Use Status: Never used Tobacco Agree to transfusion: Yes Sexual orientation: Straight/Heterosexual Gender identity: Female Female Reproductive History Menstrual Age of Menarche: 14 History History 4 Elective abortions 0 Para 2 Spontaneous abortions 0 Hx # Term Pregnancies 3 Ectopic pregnancies 0 Hx # Pregnancies 0 Multiple births 0 Past Pregnancies Del. Date GA/Weeks Outcome Route Wt Inf Gender Labor Alysia Anesthesia Location Provider Complicate 07/28/14 40 live - full term 6 lb 5 oz Male 6.5 hours none [place] none 05/19/19 40 live - full term 6 lb 7 oz Male 7 hrs none [place] none Visit DAVID Calculator Estimated Delivery Date Method Current WG Current Estimate 01/18/24 Ultrasound #1 39w 4d Other Estimates 01/17/24 LMP (Certain) 39w 5d Expected Delivery Route/Plan Vaginal delivery Specific Issues/Plans 28 Yr. old G 3 P 2 EDC: 01/17/24 Blood type: O positive Problem List: 1. Renal calculi-right hydronephrosis admitted to [facility] 08/30/2023. 2. 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 CBC: 10.5/31.6 GBS: Negative. 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 Transportation: has own Labor, and Concerns: Labor support: Plan: Anticipating an uncomplicated vaginal , states had no problems with the other deliveries in [place] Infant Feeding Plans: breast and bottle control: Depo-Provera OB Visit Log Initial Weight: Not Recorded Date -?-?-?-?-?-?-?-?-?-?-?-?- EGA Weight Gest Week Fundal Ht Present FHR move Efface % Edema BP PrePreg We Weight GTT -?-?-?-?-?-?-?-?-?-?-?-?- Glucose LV Protein Blood Type 06/09/23 -?-?-?-?-?-?-?-?-?-?-?-?- 8w 1d 156 lb 4 oz 156 lb 4 oz -?-?-?-?--?-?-?-?-?-?-?-?- 07/01/23 -?-?-?-?-?-?-?-?-?-?-?-?- 11w 2d 157 lb 11 160 104/54 157 lb -?-?-?-?-?-?-?-?-?-?-?-?- 07/31/23 -?-?-?-?-?-?-?-?-?-?-?-?- 15w 4d 162 lb 15 150 110/52 162 lb -?-?-?-?-?-?-?-?-?-?-?-?- 08/27/23 -?-?--?-?-?-?-?-?-?-?-?-?- 19w 3d 168 lb 19 150 active 110/50 168 lb -?-?-?-?-?-?-?-?-?-?-?-?- 09/26/23 -?-?-?-?-?-?-?-?-?-?-?-?- 23w 5d 166 lb 23 150 active 166 lb -?-?-?-?-?-?-?-?-?-?-?-?- 10/22/23 -?-?-?-?-?-?-?-?-?-?-?-?- 27w 3d 174 lb 28 140 active 174 lb -?-?-?-?-?-?-?-?-?-?-?-?- 11/12/23 -?-?-?-?-?-?-?-?-?-?-?-?- 30w 3d 179 lb 30 ? 150 active 108/ 52 179 lb -?-?-?-?-?-?-?-?-?-?-?-?- 11/26/23 -?-?-?-?-?-?-?-?-?-?-?-?- 32w 3d 181 lb 32.5 ?vtx 140 active 110/52 181 lb -?-?-?-?-?-?-?-?-?-?-?-?- 12/10/23 -?-?-?-?-?-?-?-?-?-?-?-?- 34w 3d 183 lb 35 ?vtx 140 active 1 183 lb -?-?-?-?-?-?-?-?-?-?-?-?- 12/25/23 -?-?-?-?-?-?-?-?-?-?-?-?- 36w 4d 183 lb term 36 vtx/MINOO 150 active 1 183 lb -?-?-?-?-?-?-?-?-?-?-?-?- 01/01/24 -?-?-?-?-?-?-?-?-?-?-?-?- 37w 4d 184 lb term 37 vtx LOP 150 active 1 184 lb -?-?-?-?-?-?-?-?-?-?-?-?- 01/08/24 -?-?-?-?-?-?-?-?-?-?-?-?- 38w 4d 185 lb term 38 LOP/LOT 150 active 1 185 lb -?-?-?-?-?-?-?-?-?-?-?-?- 01/15/24 -?-?-?-?-?-?-?-?-?-?-?-?- 39w 4d 186 lb term 36 lop 150 active 108/6 0 186 lb -?-?-?-?-?-?--?-?-?-?-?-?- Notes Visit Date: 01/15/24 Last Updated by: Ewa Fish CNM and young son for her visit at 39 weeks and 4 days (last note erronniously states 35 and 4 whereas it was 38 4/), She says she has not really having contractions baby is active she feels good she feels ready but she has not uncomfortable at all she does content to vaginal exam and admits that she does feel the baby a little bit lower. She does know where to go at [facility] I did review with her reasons to call and or go immediately signs of labor signs of leaking of water any decreased movement any unusual headaches or any other pains.. Also reviewed that if she goes post her due date we will want to start initiating postdates testing at [facility] at 41 weeks. And that we would would prefer that she deliver sometime between 41 and 42 weeks and for arrangements will be made if she is still next week to have those appointments at [facility]. Attempt a vaginal exam done her cervix is extremely posterior and even with her placing her fists under her buttocks I was not able to fully reach it. On this basis I am going to request that called be made now to try and arrange postdates testing as it will fall on the 21 of January weekend. Request sent to request for nonstress test and BPP on 01/24/2024 at [facility] and possible induction of labor on the following Friday if undelivered. Visit Date: 01/08/24 Last Updated by: Ewa Fish CNM Patient is here with her and son for her visit at 35 weeks and 4 days. She has having a few contractions nothing regular she has feeling a little bit more pressure and more discharge nothing that worries her she is feeling fine her baby is moving well she denies any symptoms of headaches epigastric pain of the pain or swelling. She is feeling ready but relaxed. They have transportation when she goes into labor. He plans to be with her though he will also be caring for the children. He had his teeth taken out so his mouth is sore. RTC 1 week unless delivered she says she has appointments already. Visit Date: 01/01/24 Last Updated by: Ewa Fihs CNM Patient is here with her at 37 weeks and 4 days at the [facility]. She has not having any contractions she is feeling the baby very very active and feels more pressure she is not too worried about labor she is says she delivered fine previously she is planning Depo-Provera afterwards she knows where to go and he knows where to bring her if she is having any signs of labor and I reviewed them again today or any decreased movement. He is very tired today because he has been up since 4 in the morning he had his bottom teeth pulled. They are getting ready for her to take care of 2 babies because she blends all his food!. They are getting ready he will be caring for the other children when she is in hospital but he is also her ride and support. Review that all her testing including group B strep was completely negative we will see her next week. Visit Date: 12/25/23 Last Updated by: Ewa Fish CNM Patient is here with her for her 36 weeks and 4 day visit at the [facility] she did not bring her young son today. She has not having any problems baby's moving she did not get Tdap vaccine yet see previous visits for details. She says she can go today to the hospital senior front end web developer will call and see if an appointment is available today when the RN is there. EFW today about 6 lb. Speculum exam done for cultures and group B strep culture. Cervix appears pink smooth healthy multiparous it is long thick closed very very soft presentation definitely vertex, ballotable. She says she does not have a primary care provider but she brings her children to the [facility] here for pediatric care I suggest she check at 1 of the senior front end web developer about registering here for care for herself as it is baumann to have a primary care provider as 1 gets older. For control she plans to use Depo-Provera and she is very clear about. She does not have any other questions she and her say they no way to go when she is in labor I reviewed the signs and symptoms of labor and what other indications would necessitate going to the hospital. They have transportation. Visit Date: 12/10/23 Last Updated by: Ewa Fish CNM Patient is here for her visit with her and son. She has not having any problems at all she said she did go to the hospital to get the vaccine but there was some misunderstanding and the were not able to give it then it develops a might of been a day there was no nurse in the office. She has not having any other concerns this time her son again helped listen to the heart rate and was very interested listening to every family member with the that is go. She has not having any contractions or difficulties we have already discussed and bottle-feeding and control. Her next visit will be in 2 weeks with cultures and I let her know about so she can plan accordingly. She is going to get an appointment to go up to the hospital when the nurse is available to give the vaccine (Tdap). Visit Date: 11/26/23 Last Updated by: Ewa Fish CNM Patient is here with her and young son for her visit at 32 weeks and 3 days. She has not having any problems she says she is taking her iron the baby is moving a lot she has not having any pain or contractions or anything that is worrisome at all. She is planning on breast and bottle feeding I reviewed that if she gives a bottle early in her baby's life she will have less milk in it workout as well she says she knows this. She plans on using Depo-Provera for control as she used it before. I offered her the Tdap vaccine and she is open to it and so she can be seen at the hospital office for the Tdap vaccine any time in the next couple of weeks. We will see her in 2 weeks. Visit Date: 11/12/23 Last Updated by: Ewa Fish CNM Patient is here at [facility] with her partner her Young son for her visit, at 30 weeks 3 days. She says baby is moving well she has no complaints at all today she answer questions in one-word answers. She said she has not taking any iron nobody told her to take it reminded her that there is a prescription out there for her to take on because she is a little bit anemic I reviewed her 1 hour and 3 hour sugar tests. I asked her if she is drinking lots of water for general health in kidneys and she said she was not a recommended she try to increase her water intake to try and help prevent recurrence her kidney infection and kidney stones and reminded her if she had any symptoms of fever chills with pain or any other problems to return to [facility] for care. Her abdomen was soft no contractions and negative CVAT, She does know she will be delivering at [facility]. she lives in [place] [facility]. She says she had no difficulty with her other 2 deliveries in [place]. RTC 2 weeks Visit Date: 10/22/23 Last Updated by: Brunilda Stockton CNM Note author: Brunilda Stockton CNM. 27.2wk. TOM. Taking PNV, Doing well with no concerns. Good appetite, stays well hydrated. Denies any LOF, VB, abd. pain or urinary symptoms. Partner present. 28wk wk. labs ordered. EPDS=1. Reviewed: PTL s/s-LOF/Ctx's/VB, when to seek emergent care. discomforts, self help measures. FM and when to call the office for further eval. Encouraged a healthy well balanced diet, regular walking/exercise in . Hydrate well, 8-10 glasses of water daily. RTO 3wks. Visit Date: 09/26/23 Last Updated by: Brunilda Stockton CNM Note author: Brunilda Stockton CNM. Visit with Certified Disintegrator Feeder: Shonda Vincent CMA. 23.5wk. TOM. Taking PNV, Doing well with no concerns. Denies any LOF, VB, abd. pain or urinary symptoms. Good FM. Was admitted to [facility] for several days due to abdominal pain, history of hydronephrosis/renal calculi, records not available. Also seen in the ED here on September 21 for nausea and vomiting. Reviewed: PTL s/s-LOF/Ctx's/VB, when to seek emergent care. Hydrate well, 8-10 glasses of water daily. Plan 28 week labs at next visit. Release records, including FA S results. Advised not to come to the hospital in [place] for -related concerns due to her advanced stage in advised to go to [facility]. Staff to research for FAS results and hospitalization records. RTO 4wks. Visit Date: 08/27/23 Last Updated by: Brunilda Stockton CNM Note author: Brunilda Stockton CNM. 19.3wk. TOM. Taking PNV, Doing well with no concerns. Good appetite, stays well hydrated. Denies any LOF, VB, abd. pain or urinary symptoms. Pt. responds w/single word answers, partner in, no eye/verbal contact. Reviewed: PTL s/s-LOF/Ctx's/VB, when to seek emergent care. FM and when to call the office for further eval. Encouraged a healthy well balanced diet, regular walking/exercise in . Hydrate well, 8-10 glasses of water daily. FAS is booked 09/05/23. RTO 4wks. Visit Date: 07/31/23 Last Updated by: Brunilda Stockton CNM Note author: Brunilda Stockton CNM. 15.4wk. TOM. Taking PNV, Doing well with concerns: nausea, no vomiting. Denies any LOF, VB, abd. pain or urinary symptoms. Quickening noted. Partner in. Reviewed: NT and First screen. LOF/Ctx's/VB, when to seek emergent care. discomforts, self help measures. Rx for B6 sent in. Encouraged a healthy well balanced diet, regular walking/exercise in . Hydrate well, 8-10 glasses of water daily. FAS ordered-4wks RTO 4wks. Visit Date: 07/01/23 Last Updated by: Brunilda Stockton CNM OB Note author: Brunilda Stockton CNM. Visit assisted with the fiction and nonfiction author services. 11.2wk. OBPE. Taking PNV, Doing well with no concerns. Good appetite, stays well hydrated. Denies any LOF, VB, abd. pain, or urinary symptoms. Reviewed: VB, abdominal/ pelvic pain when to seek emergent care. Rx for PNV sent in again. Encouraged a healthy well balanced diet, regular walking/exercise in . Hydrate well, 8-10 glasses of water daily. Flu vaccine today. NT results pending. RTO 4. Visit Date: 06/09/23 Last Updated by: Niecy Muñiz LPN Leidy is here today for her Nurse intake. with SP fiction and nonfiction author Tierney, ID # [id number]. . LMP 04/12/23EDD 01/18/24. DAVID by u/s on 06/05/23= DAVID 01/20/24. Pt reports very little nausea, she is able to eat and drink without any problems. She delivered both of her boys in [place], she denies any problems with her pregnancies or deliveries,. and breast fed both boys She lives with her S.O. and their children. Pt is aware she will [place] [facility] and transferred if becomes High risk at any point. Discussed with pt NT u/s and genetic testing,that will be done at [facility]. Discussed labs including cf testing and UDS. Discussed with pt, healthy food choices, frozen veggies vs canned, decrease carb intake, such as rice and pasta, avoid sugary drinks, increase H2O to 7-10 glasses daily. Discussed with pt how to reach call center associate MD after hours. packet given to pt in SP. She is aware to call with any problems or concerns. Pt was brought to senior front end web developer for scheduling OB PE. Coding Level of Care Code Robles
== END 2024-01-15 11:30 | disposition home or self-care (01) ==
LOC: HO.HWSM 10:26
PROVIDERS: Visit Provider Advanced Practice Midwife
DX: Z34.90 Encounter for supervision of normal pregnancy, unspecified, unspecified trimester (principal)
CPT/HCPCS: 25942; 59426

== ENCOUNTER → 2024-01-15 10:26 | Outpatient (BNVA) | payer OTHER, SELFPAY | PROVIDERS: Visit Provider Advanced Practice Midwife | DX: Z34.83 Encounter for supervision of other normal pregnancy, third trimester (principal); Z3A.39 39 weeks gestation of pregnancy | CPT/HCPCS: 99212 ==

== ENCOUNTER 2024-02-23 13:02 | Outpatient (AMB) | payer OTHER, SELFPAY ==
--- NOTE | 2024-02-23 13:16 | MHC.OFFVIS ---
Vital Signs 02/23/24 13:17 Height 5 ft 2 in Weight 176 lb BMI 32.2 BP 110/68 Intake Visit Reasons: 6 weeks pp Information Interpreted: clinical only Constitutional Law Professor: Constitutional Law Professor Present Allergies aspirin Allergy (Unknown, Verified 02/23/24 13:19) Unknown Penicillins Allergy (Unknown, Verified 02/23/24 13:19) Unknown Medication List - Last Reconciled 02/23/24 by Ewa Fish CNM No Known Home Meds Is last menstrual period known: No PFSH Medical History Encounter for supervision of normal in third trimester Encounter for supervision of other normal , second trimester Social History Household Members: Significant Other and Children Both parents involved: Yes Housing: Apartment Alcohol intake: former Patient Tobacco Use Status: Never used Tobacco Agree to transfusion: Yes Sexual orientation: Straight/Heterosexual Gender identity: Female Female Reproductive History Menstrual Age of Menarche: 14 Duration of menses: <3 days control method: none Total pregnancies: 2 Full term: 2 Date of last pap smear: 07/02/23 (unsatisfactory) Physical Exam Vital Signs: Last Vital Signs BP 110/68 02/23/24 13:17 BMI result Body Mass Index 32.2 Assessment & Plan Assessment & Plan Medications: New medroxyprogesterone (Depo-Provera) to be given q 12 weeks, as reviewed 150 mg IM Q12W 1 mL 5RF Coding
[2024-02-23 13:17] VITALS: BP 110/68; BMI 32.2
--- NOTE | 2024-02-23 13:54 | A.OFFVISPN_ITS ---
Intake Vital Signs 02/23/24 13:17 Height 5 ft 2 in Weight 176 lb BMI 32.2 BP 110/68 Intake Visit Reasons: 6 weeks pp Allergies aspirin Allergy (Unknown, Verified 02/23/24 13:19) Unknown Penicillins Allergy (Unknown, Verified 02/23/24 13:19) Unknown Medication List - Last Reconciled 02/23/24 by Ewa Fish CNM No Known Home Meds PFSH Medical History Encounter for supervision of normal in third trimester Encounter for supervision of other normal , second trimester Social History Household Members: Significant Other and Children Both parents involved: Yes Housing: Apartment Alcohol intake: former Patient Tobacco Use Status: Never used Tobacco Agree to transfusion: Yes Sexual orientation: Straight/Heterosexual Gender identity: Female Female Reproductive History Menstrual Age of Menarche: 14 History History 4 Elective abortions 0 Para 2 Spontaneous abortions 0 Hx # Term Pregnancies 3 Ectopic pregnancies 0 Hx # Pregnancies 0 Multiple births 0 Past Pregnancies Del. Date GA/Weeks Outcome Route Wt Inf Gender Labor Alysia Anesthesia Location Provider Complicate 07/28/14 40 live - full term 6 lb 5 oz Male 6.5 hours none [place] none 05/19/19 40 live - full term 6 lb 7 oz Male 7 hrs none [place] none Visit DAVID Calculator Estimated Delivery Date Method Current WG Current Estimate 01/18/24 Ultrasound #1 45w 1d Other Estimates 01/17/24 LMP (Certain) 45w 2d Expected Delivery Route/Plan Vaginal delivery Specific Issues/Plans 28 Yr. old G 3 P 2 EDC: 01/17/24 Blood type: O positive Problem List: 1. Renal calculi-right hydronephrosis admitted to [facility] 08/30/2023. 2. Cook Islander-speaking per diem interpreter required Testing: First Tri screen: Negative NT scan: Normal AFP: nl FAS: nl 28 wk glucose: 142, 3'gtt=74/158/132/81 CBC 1st Tri: 13/39.4 28 wk. CBC: 10.5/31.6 GBS: Negative. 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 Transportation: has own Labor, and Concerns: Labor support: Plan: Anticipating an uncomplicated vaginal , states had no problems with the other deliveries in [place] Infant Feeding Plans: breast and bottle control: Depo-Provera OB Visit Log Initial Weight: Not Recorded Date -?-?-?-?-?-?-?-?-?-?-?-?- EGA Weight Gest Week Fundal Ht Present FHR move Efface % Edema BP PrePreg We Weight GTT -?-?-?-?--?-?-?-?-?-?-?-?- Glucose LV Protein Blood Type 06/09/23 -?-?-?-?-?-?-?-?-?-?-?-?- 8w 1d 156 lb 4 oz 156 lb 4 oz -?-?-?-?-?-?-?-?-?-?-?-?- 07/01/23 -?-?-?-?-?-?-?-?-?-?-?-?- 11w 2d 157 lb 11 160 104/54 157 lb -?-?-?-?-?-?-?-?-?-?-?-?- 07/31/23 -?-?-?-?-?-?-?-?-?-?-?-?- 15w 4d 162 lb 15 150 110/52 162 lb -?-?-?-?-?-?-?-?-?-?-?-?- 08/27/23 -?-?-?-?-?-?-?-?-?-?-?-?- 19w 3d 168 lb 19 150 active 110/50 168 lb -?-?-?-?-?-?-?-?-?-?-?-?- 09/26/23 -?-?-?-?-?-?-?-?-?-?-?-?- 23w 5d 166 lb 23 150 active 108/62 166 lb -?-?-?-?-?-?-?-?-?-?-?-?- 10/22/23 -?-?-?-?-?-?-?-?-?-?-?-?- 27w 3d 174 lb 28 140 active / 174 lb -?-?-?-?-?-?-?-?-?-?-?-?- 11/12/23 -?-?-?-?-?-?-?-?-?--?-?-?- 30w 3d 179 lb 30 ? 150 active 108/ 52 179 lb -?-?-?-?-?-?-?-?-?-?-?-?- 11/26/23 -?-?-?-?-?-?-?-?-?-?-?-?- 32w 3d 181 lb 32.5 ?vtx 140 active 110/52 181 lb -?-?-?-?-?-?-?-?-?-?-?-?- 12/10/23 -?-?-?-?-?-?-?-?-?-?-?-?- 34w 3d 183 lb 35 ?vtx 140 active 1 183 lb -?-?-?-?-?-?-?-?-?-?-?-?- 12/25/23 -?-?-?-?-?-?-?-?-?-?-?-?- 36w 4d 183 lb term 36 vtx/MINOO 150 active 1 183 lb -?-?-?-?-?-?-?-?-?-?-?-?- 01/01/24 -?-?-?-?-?-?-?-?-?-?-?-?- 37w 4d 184 lb term 37 vtx LOP 150 active 1 184 lb -?-?-?-?-?-?-?-?-?-?-?-?- 01/08/24 -?-?-?-?-?-?-?-?-?-?-?-?- 38w 4d 185 lb term 38 LOP/LOT 150 active 1 185 lb -?-?-?-?-?-?-?-?-?-?-?-?- 01/15/24 -?-?-?-?-?-?-?-?-?-?-?-?- 39w 4d 186 lb term 36 lop 150 active 108/6 0 186 lb -?-?-?-?-?-?-?-?-?-?-?-?- 02/23/24 -?-?-?-?-?-?-?-?-?-?-?-?- 45w 1d 176 lb unknown 110/68 176 lb -?-?-?-?-?-?-?-?-?-?-?-?- Notes Visit Date: 02/23/24 Last Updated by: Ewa Fish CNM Here for visit for visit there are no delivery records available. She tells me that she delivered on December the [facility] she started having contractions on the Friday the and they got strong on Friday night she went to the hospital and she had a baby Friday then the . She tells me she did not have any complications she does not know delivered her she did not have any problems bleeding. Baby weighed 8 lb 8 oz. she tells me she did not have stitches but later it develops that she did have stitches placed but she just did not know if they still there today. She has not had sex yet she is waiting for her 40 day quarantine to be up. She did get Depo-Provera the day she left the hospital which she calculates to be January 19. That was her plan for control long and she also is breast and bottle feeding just what her plan was all along. She says her is helping her baby in the kids. She is not having any problems and she says the baby is up every hour but she is getting a chance to sleep rest during the day he is helping her have nap during the day. She brings her baby to [facility] the baby's next appointment is in March. The baby has naturally not had any vaccinations yet. Patient today is audibly congested and says she has a cold that started yesterday enter kids came down with a cold 3 days ago. I asked her if she was masking around the baby and she said no and I asked her she had masks and she said no so we will provide her with masks today and I did discuss trying to protect the baby from cold viruses as much as possible at this stage of the baby's life. The baby was comfortably napping in its cot during this visit. She intends to continue using Depo-Provera. She has used it before I reviewed that it needs to be given more like every 12 weeks rather than every 3 months as every 3 months risks getting it late sometimes I reviewed what other health she might have available to her here but she does not not have any other help. all of her family is in [place]. She says no relatives coming to visit any time soon. I did review signs and symptoms of depression and reiterated to her that it is common often the 1st thing to do is 5 should get some rest but I also let her know that this discussion did not imply that she was exhibiting any signs or symptoms of it I just wanted her to let her know about it to be aware. She is not having any problems in this line at all. She is however I am mother of an 8-year-old 4-year-old and now a baby with limited help. Breast exam her breasts are soft nipples intact and well everted no signs of mastitis no redness no hardness. Abdomen is soft fundus not palpable abdominal half finger breaths diastasis palpable reviewed that this means coming together well. She is not bleeding at all. Her annual exam perineum is intact stitches are visible and healing very well with no evidence infection or dehiscence consistent with about 5 weeks . Cervix is closed pink smooth uterus involuting consistent with 5 weeks not completely firm yet but involuting well. Her next appointment be in 12 weeks for next Depo-Provera this appointment be with the nurses at hospital around or before April 13. Visit Date: 01/15/24 Last Updated by: Ewa Fish CNM and young son for her visit at 39 weeks and 4 days (last note erronniously states 35 and 4 whereas it was 38 4/7), She says she has not really having contractions baby is active she feels good she feels ready but she has not uncomfortable at all she does content to vaginal exam and admits that she does feel the baby a little bit lower. She does know where to go at [facility] I did review with her reasons to call and or go immediately signs of labor signs of leaking of water any decreased movement any unusual headaches or any other pains.. Also reviewed that if she goes post her due date we will want to start initiating postdates testing at [facility] at 41 weeks. And that we would would prefer that she deliver sometime between 41 and 42 weeks and for arrangements will be made if she is still next week to have those appointments at [facility]. Attempt a vaginal exam done her cervix is extremely posterior and even with her placing her fists under her buttocks I was not able to fully reach it. On this basis I am going to request that called be made now to try and arrange postdates testing as it will fall on the January. Request sent to request for nonstress test and BPP on 01/24/2024 at [facility] and possible induction of labor on the following Friday if undelivered. Visit Date: 01/08/24 Last Updated by: Ewa Fish CNM Patient is here with her and son for her visit at 35 weeks and 4 days. She has having a few contractions nothing regular she has feeling a little bit more pressure and more discharge nothing that worries her she is feeling fine her baby is moving well she denies any symptoms of headaches epigastric pain of the pain or swelling. She is feeling ready but relaxed. They have transportation when she goes into labor. He plans to be with her though he will also be caring for the children. He had his teeth taken out so his mouth is sore. RTC 1 week unless delivered she says she has appointments already. Visit Date: 01/01/24 Last Updated by: Ewa Fish CNM Patient is here with her at 37 weeks and 4 days at the [facility]. She has not having any contractions she is feeling the baby very very active and feels more pressure she is not too worried about labor she is says she delivered fine previously she is planning Depo-Provera afterwards she knows where to go and he knows where to bring her if she is having any signs of labor and I reviewed them again today or any decreased movement. He is very tired today because he has been up since 4 in the morning he had his bottom teeth pulled. They are getting ready for her to take care of 2 babies because she blends all his food!. They are getting ready he will be caring for the other children when she is in hospital but he is also her ride and support. Review that all her testing including group B strep was completely negative we will see her next week. Visit Date: 12/25/23 Last Updated by: Ewa Fish CNM Patient is here with her for her 36 weeks and 4 day visit at the [facility] she did not bring her young son today. She has not having any problems baby's moving she did not get Tdap vaccine yet see previous visits for details. She says she can go today to the hospital front desk associate will call and see if an appointment is available today when the RN is there. EFW today about 6 lb. Speculum exam done for cultures and group B strep culture. Cervix appears pink smooth healthy multiparous it is long thick closed very very soft presentation definitely vertex, ballotable. She says she does not have a primary care provider but she brings her children to the [facility] here for pediatric care I suggest she check at 1 of the front desk associate about registering here for care for herself as it is baumann to have a primary care provider as 1 gets older. For control she plans to use Depo-Provera and she is very clear about. She does not have any other questions she and her say they no way to go when she is in labor I reviewed the signs and symptoms of labor and what other indications would necessitate going to the hospital. They have transportation. Visit Date: 12/10/23 Last Updated by: Ewa Fish CNM Patient is here for her visit with her and son. She has not having any problems at all she said she did go to the hospital to get the vaccine but there was some misunderstanding and the were not able to give it then it develops a might of been a day there was no nurse in the office. She has not having any other concerns this time her son again helped listen to the heart rate and was very interested listening to every family member with the that is go. She has not having any contractions or difficulties we have already discussed and bottle-feeding and control. Her next visit will be in 2 weeks with cultures and I let her know about so she can plan accordingly. She is going to get an appointment to go up to the hospital when the nurse is available to give the vaccine (Tdap). Visit Date: 11/26/23 Last Updated by: Ewa Fish CNM Patient is here with her and young son for her visit at 32 weeks and 3 days. She has not having any problems she says she is taking her iron the baby is moving a lot she has not having any pain or contractions or anything that is worrisome at all. She is planning on breast and bottle feeding I reviewed that if she gives a bottle early in her baby's life she will have less milk in it workout as well she says she knows this. She plans on using Depo-Provera for control as she used it before. I offered her the Tdap vaccine and she is open to it and so she can be seen at the hospital office for the Tdap vaccine any time in the next couple of weeks. We will see her in 2 weeks. Visit Date: 11/12/23 Last Updated by: Ewa Fish CNM Patient is here at [facility] with her partner her Young son for her visit, at 30 weeks 3 days. She says baby is moving well she has no complaints at all today she answer questions in one-word answers. She said she has not taking any iron nobody told her to take it reminded her that there is a prescription out there for her to take on because she is a little bit anemic I reviewed her 1 hour and 3 hour sugar tests. I asked her if she is drinking lots of water for general health in kidneys and she said she was not a recommended she try to increase her water intake to try and help prevent recurrence her kidney infection and kidney stones and reminded her if she had any symptoms of fever chills with pain or any other problems to return to [facility] for care. Her abdomen was soft no contractions and negative CVAT, She does know she will be delivering at [facility]. she lives in [place] than [facility]. She says she had no difficulty with her other 2 deliveries in [place]. RTC 2 weeks Visit Date: 10/22/23 Last Updated by: Brunilda Stockton CNM Note author: Brunilda Stockton CNM. 27.2wk. TOM. Taking PNV, Doing well with no concerns. Good appetite, stays well hydrated. Denies any LOF, VB, abd. pain or urinary symptoms. Partner present. 28wk wk. labs ordered. EPDS=1. Reviewed: PTL s/s-LOF/Ctx's/VB, when to seek emergent care. discomforts, self help measures. FM and when to call the office for further eval. Encouraged a healthy well balanced diet, regular walking/exercise in . Hydrate well, 8-10 glasses of water daily. RTO 3wks. Visit Date: 09/26/23 Last Updated by: Brunilda Stockton CNM Note author: Brunilda Stockton CNM. Visit with [employer] Staff: Shonda Vincent CMA. 23.5wk. TOM. Taking PNV, Doing well with no concerns. Denies any LOF, VB, abd. pain or urinary symptoms. Good FM. Was admitted to [facility] for several days due to abdominal pain, history of hydronephrosis/renal calculi, records not available. Also seen in the ED here on September 21 for nausea and vomiting. Reviewed: PTL s/s-LOF/Ctx's/VB, when to seek emergent care. Hydrate well, 8-10 glasses of water daily. Plan 28 week labs at next visit. Release records, including FA S results. Advised not to come to the hospital in [place] for -related concerns due to her advanced stage in advised to go to [facility]. Staff to research for FAS results and hospitalization records. RTO 4wks. Visit Date: 08/27/23 Last Updated by: Brunilda Stockton CNM Note author: Brunilda Stockton CNM. 19.3wk. TOM. Taking PNV, Doing well with no concerns. Good appetite, stays well hydrated. Denies any LOF, VB, abd. pain or urinary symptoms. Pt. responds w/single word answers, partner in, no eye/verbal contact. Reviewed: PTL s/s-LOF/Ctx's/VB, when to seek emergent care. FM and when to call the office for further eval. Encouraged a healthy well balanced diet, regular walking/exercise in . Hydrate well, 8-10 glasses of water daily. FAS is booked 09/05/23. RTO 4wks. Visit Date: 07/31/23 Last Updated by: Brunilda Stockton CNM Note author: Brunilda Stockton CNM. 15.4wk. TOM. Taking PNV, Doing well with concerns: nausea, no vomiting. Denies any LOF, VB, abd. pain or urinary symptoms. Quickening noted. Partner in. Reviewed: NT and First screen. LOF/Ctx's/VB, when to seek emergent care. discomforts, self help measures. Rx for B6 sent in. Encouraged a healthy well balanced diet, regular walking/exercise in . Hydrate well, 8-10 glasses of water daily. FAS ordered-4wks RTO 4wks. Visit Date: 07/01/23 Last Updated by: Brunilda Stockton CNM OB Note author: Brunilda Stockton CNM. Visit assisted with the per diem interpreter services. 11.2wk. OBPE. Taking PNV, Doing well with no concerns. Good appetite, stays well hydrated. Denies any LOF, VB, abd. pain, or urinary symptoms. Reviewed: VB, abdominal/ pelvic pain when to seek emergent care. Rx for PNV sent in again. Encouraged a healthy well balanced diet, regular walking/exercise in . Hydrate well, 8-10 glasses of water daily. Flu vaccine today. NT results pending. RTO 4. Visit Date: 06/09/23 Last Updated by: Niecy Muñiz LPN Leidy is here today for her Nurse intake. with [facility] per diem interpreter Tierney, ID # [id number]. . LMP 04/12/23EDD 01/18/24. DAVID by u/s on 06/05/23= DAVID 01/20/24. Pt reports very little nausea, she is able to eat and drink without any problems. She delivered both of her boys in [place], she denies any problems with her pregnancies or deliveries,. and breast fed both boys She lives with her S.O. and their children. Pt is aware she will be delivering at [facility], and transferred if becomes High risk at any point. Discussed with pt NT u/s and genetic testing,that will be done at [facility]. Discussed labs including cf testing and UDS. Discussed with pt, healthy food choices, frozen veggies vs canned, decrease carb intake, such as rice and pasta, avoid sugary drinks, increase H2O to 7-10 glasses daily. Discussed with pt how to reach yardage caller MD after hours. packet given to pt in SP. She is aware to call with any problems or concerns. Pt was brought to front desk associate for scheduling OB PE. Exam Const Other: See the note. Coding Level of Care Code [place] Diagnoses care and examination of lactating mother Z39.1 care following vaginal delivery Z39.2 Depo-Provera contraceptive status Z30.42 Assessment & Plan Assessment & Plan (1) care and examination of lactating mother: Code(s): Z39.1 - Encounter for care and examination of lactating mother Category: Medical (2) care following vaginal delivery: Code(s): Z39.2 - Encounter for routine follow-up Category: Medical (3) Depo-Provera contraceptive status: Comment: started on depo on day 3 pp, 01/20/24, cont q 12w Code(s): Z30.42 - Encounter for surveillance of injectable contraceptive Category: Medical Plan Here for visit for visit there are no delivery records available. She tells me that she delivered on December the [facility] she started having contractions on the Friday the and they got strong on Friday night she went to the hospital and she had a baby Friday then the . She tells me she did not have any complications she does not know delivered her she did not have any problems bleeding. Baby weighed 8 lb 8 oz. she tells me she did not have stitches but later it develops that she did have stitches placed but she just did not know if they still there today. She has not had sex yet she is waiting for her 40 day quarantine to be up. She did get Depo-Provera the day she left the hospital which she calculates to be January 19. That was her plan for control long and she also is breast and bottle feeding just what her plan was all along. She says her is helping her baby in the kids. She is not having any problems and she says the baby is up every hour but she is getting a chance to sleep rest during the day he is helping her have nap during the day. She brings her baby to [facility] the baby's next appointment is in March. The baby has naturally not had any vaccinations yet. Patient today is audibly congested and says she has a cold that started yest erddanielle enter kids came down with a cold 3 days ago. I asked her if she was masking around the baby and she said no and I asked her she had masks and she said no so we will provide her with masks today and I did discuss trying to protect the baby from cold viruses as much as possible at this stage of the baby's life. The baby was comfortably napping in its cot during this visit. She intends to continue using Depo-Provera. She has used it before I reviewed that it needs to be given more like every 12 weeks rather than every 3 months as every 3 months risks getting it late sometimes I reviewed what other health she might have available to her here but she does not not have any other help. all of her family is in [place]. She says no relatives coming to visit any time soon. I did review signs and symptoms of depression and reiterated to her that it is common often the 1st thing to do is 5 should get some rest but I also let her know that this discussion did not imply that she was exhibiting any signs or symptoms of it I just wanted her to let her know about it to be aware. She is not having any problems in this line at all. She is however I am mother of an 8-year-old 4-year-old and now a baby with limited help. Breast exam her breasts are soft nipples intact and well everted no signs of mastitis no redness no hardness. Abdomen is soft fundus not palpable abdominal half finger breaths diastasis palpable reviewed that this means coming together well. She is not bleeding at all. Her annual exam perineum is intact stitches are visible and healing very well with no evidence infection or dehiscence consistent with about 5 weeks . Cervix is closed pink smooth uterus involuting consistent with 5 weeks not completely firm yet but involuting well. Her next appointment be in 12 weeks for next Depo-Provera this appointment be with the nurses at hospital around or before April 13. Medications: New medroxyprogesterone (Depo-Provera) to be given q 12 weeks, as reviewed 150 mg IM Q12W 1 mL 5RF
== END 2024-02-23 13:52 | disposition home or self-care (01) ==
PROVIDERS: Visit Provider Advanced Practice Midwife
DX: Z39.2 Encounter for routine postpartum follow-up (principal); Z39.1 Encounter for care and examination of lactating mother; Z30.42 Encounter for surveillance of injectable contraceptive
CPT/HCPCS: 59430

== ENCOUNTER → 2024-02-23 13:02 | Outpatient (BNVA) | payer OTHER, SELFPAY | PROVIDERS: Visit Provider Advanced Practice Midwife ==

== ENCOUNTER 2024-04-09 10:33 | Outpatient (AMB) | payer OTHER, SELFPAY ==
[2024-04-09 11:22] VITALS: BMI 34.1
--- NOTE | 2024-04-09 11:22 | AM.OFFVISNUR ---
Vital Signs 04/09/24 11:22 Height 5 ft 2 in Weight 186 lb 8 oz BMI 34.1 Intake Visit Reasons: DEPO Allergies aspirin Allergy (Unknown, Verified 02/23/24 13:19) Unknown Penicillins Allergy (Unknown, Verified 02/23/24 13:19) Unknown Nursing Note Leidy is here for scheduled Depo injection. No c/o, no menses, no new medical problems or new meds. Pt tolerated injection well. She will schedule her next injection in 12 weeks. Pt verbalizes understanding and agrees with plan. No further questions. Office Procedures Depo Questionnaire If YES to any of the following questions, please consult a provider. Date of last injection: 01/20/24 Date of last gynecology exam: 07/01/23 Menstrual pattern since last injection has been: Not Applicable Irregular bleeding?: No Breast lumps or other breast changes?: No Changes in weight or appetite?: No Depression or changes in mood?: No Abnormal hair growth or loss?: No Skin problems (rash, acne, discoloration)?: No Pain at the injection site?: No Headaches?: No Nervousness?: No Abdominal pain or cramping?: No Dizziness or nausea?: No Fatigue or weakness?: No Decrease in sexual drive?: No Chest pain or shortness of breath?: No Swelling in arms or legs?: No Form completed by?: Alize Damon RN Office Meds Depo-Provera 150 mg/mL intramuscular syringe Performing Provider: Ewa Fish CNM Performing Location: [facility] [place] [facility] Administered by: Alize Damon on 04/09/24 11:25 Dose Route Admin Location Dispensed Lot Number Expiration Date [facility] Aba Therapist 150 mg IM left deltoid 1 mL [id number] 07/20/25 13627-235-12 [employer] Assessment & Plan Assessment & Plan (1) Depo-Provera contraceptive status: Comment: started on depo on day 3 pp, 01/20/24, cont q 12w Code(s): Z30.42 - Encounter for surveillance of injectable contraceptive Category: Medical Plan Pt will schedule her next injection in 12 weeks. Orders: Orders AMB Medroxyprogesterone Injection Patient Supplied Today Z30.42 - Encounter for surveillance of injectable contraceptive Medications: New Depo-Provera (medroxyprogesterone) 150 mg IM ONCE 1 mL 0RF NS Z30.42 - Encounter for surveillance of injectable contraceptive
== END 2024-04-09 11:18 | disposition home or self-care (01) ==
LOC: HO.HWS 10:33
PROVIDERS: Visit Provider Advanced Practice Midwife
DX: Z30.42 Encounter for surveillance of injectable contraceptive (principal)

== ENCOUNTER → 2024-04-09 10:33 | Outpatient (BNVA) | payer OTHER, SELFPAY | PROVIDERS: Visit Provider Advanced Practice Midwife | DX: Z30.42 Encounter for surveillance of injectable contraceptive (principal) | CPT/HCPCS: 96372; 99211; J1050 ==

== ENCOUNTER → 2024-07-15 10:18 | Outpatient (BNVA) | payer OTHER, SELFPAY | PROVIDERS: Visit Provider Advanced Practice Midwife | DX: Z32.02 Encounter for pregnancy test, result negative (principal) | CPT/HCPCS: 99211 ==

== ENCOUNTER 2024-07-29 10:37 | Outpatient (AMB) | payer OTHER, SELFPAY ==
--- NOTE | 2024-07-29 11:02 | AM.OFFVISNUR ---
Intake Visit Reasons: preg test/? DEPO Allergies aspirin Allergy (Unknown, Verified 02/23/24 13:19) Unknown Penicillins Allergy (Unknown, Verified 02/23/24 13:19) Unknown Nursing Note Pt is here today for her Depo-Provera re-start. She was not able to get her inj in Dec as she was late getting it and had unprotected intimacy, the day prior to her inj. Discussed with CANDY Fish, and pt was infomred she needed to come back in 2 weeks no unprotected intercourse and a neg test today. Pt was given inj and advised condom use x 2 weeks, in addition toher shot today. Pt verbs understanding. Return in 12 wks for next inj. Office Procedures Depo Questionnaire If YES to any of the following questions, please consult a provider. Date of last injection: 04/09/24 Date of last gynecology exam: 02/23/24 Menstrual pattern since last injection has been: Not Applicable test in office results: Negative Irregular bleeding?: No Breast lumps or other breast changes?: No Changes in weight or appetite?: No Depression or changes in mood?: No Abnormal hair growth or loss?: No Skin problems (rash, acne, discoloration)?: No Pain at the injection site?: No Headaches?: No Nervousness?: No Abdominal pain or cramping?: No Dizziness or nausea?: No Fatigue or weakness?: No Decrease in sexual drive?: No Chest pain or shortness of breath?: No Swelling in arms or legs?: No Form completed by?: Florecita sorto LPN Office Meds Depo-Provera 150 mg/mL intramuscular syringe Performing Provider: Ewa Fish CNM Performing Location: [facility] [place] [facility] Administered by: Niecy Sorto LPN on 07/29/24 11:06 Dose Route Admin Location Dispensed Lot Number Expiration Date [facility] Fermenter Operator 150 mg IM left deltoid 1 mL [id number] 07/20/25 17562-452-02 Eugia Results AMB Test Urine AMB Test Urine Negative Last Edit by Niecy Sorto LPN on 07/29/24 11:15 Assessment & Plan Assessment & Plan Orders: Orders AMB Medroxyprogesterone Injection Patient Supplied Today Z30.42 - Encounter for surveillance of injectable contraceptive Medications: New Depo-Provera (medroxyprogesterone) 150 mg IM ONCE 1 mL 0RF NS Z30.42 - Encounter for surveillance of injectable contraceptive
== END 2024-07-29 11:00 | disposition home or self-care (01) ==
LOC: HO.HWS 10:37
PROVIDERS: Visit Provider Advanced Practice Midwife
DX: Z30.42 Encounter for surveillance of injectable contraceptive (principal)

== ENCOUNTER → 2024-07-29 10:37 | Outpatient (BNVA) | payer OTHER, SELFPAY | PROVIDERS: Visit Provider Advanced Practice Midwife | DX: Z30.42 Encounter for surveillance of injectable contraceptive (principal) | CPT/HCPCS: 96372; 99211; J1050 ==

== ENCOUNTER 2024-10-20 08:45 | Outpatient (AMB) | payer OTHER, SELFPAY ==
[2024-10-20 09:02] VITALS: BMI 35.1
--- NOTE | 2024-10-20 09:02 | AM.OFFVISNUR ---
Vital Signs 10/20/24 09:02 Height 5 ft 2 in Weight 192 lb BMI 35.1 Intake Visit Reasons: DEPO Allergies aspirin Allergy (Unknown, Verified 02/23/24 13:19) Unknown Penicillins Allergy (Unknown, Verified 02/23/24 13:19) Unknown Nursing Note Leidy is here today for her scheduled Depo_Provera inj. She denies any problems or concerns. Follow up in 12 weeks and was scheduled for AG with CANDY Fish. Office Procedures Depo Questionnaire If YES to any of the following questions, please consult a provider. Date of last injection: 07/29/24 Date of last gynecology exam: 02/23/24 Menstrual pattern since last injection has been: Not Applicable Irregular bleeding?: No Breast lumps or other breast changes?: No Changes in weight or appetite?: No Depression or changes in mood?: No Abnormal hair growth or loss?: No Skin problems (rash, acne, discoloration)?: No Pain at the injection site?: No Headaches?: No Nervousness?: No Abdominal pain or cramping?: No Dizziness or nausea?: No Fatigue or weakness?: No Decrease in sexual drive?: No Chest pain or shortness of breath?: No Swelling in arms or legs?: No Form completed by?: Florecita sorto LPN Office Meds Depo-Provera 150 mg/mL intramuscular syringe Performing Provider: Ewa Fish CNM Performing Location: [facility] [place] [facility] Administered by: Niecy Sorto LPN on 10/20/24 09:02 Dose Route Admin Location Dispensed Lot Number Expiration Date [facility] Film Masker 150 mg IM left deltoid 1 mL [id number] 03/20/26 7452-9752-91 [facility] Assessment & Plan Assessment & Plan Orders: Orders AMB Medroxyprogesterone Injection Patient Supplied Today Z30.42 - Encounter for surveillance of injectable contraceptive Medications: New Depo-Provera (medroxyprogesterone) 150 mg IM ONCE 1 mL 0RF NS Z30.42 - Encounter for surveillance of injectable contraceptive Coding
--- OUTSIDE RECORDS SUMMARY | 2024-10-20 09:16 | XMS_ITS | Clinical Summary ---
Author Organization [employer] Address [address] [place] [address] Care Team Providers Care Assistant Chief Nursing Officer Name Role Phone Unavailable Primary Care Provider Unavailabl e Social History Tobacco Use Types Packs/Day Years Used Date Smoking Tobacco: Never Assessed Comments Unknown Sex and Gender Information Value Date Recorded Sex Assigned at Female 02/10/2023 9:31 AM EDT Legal Sex Female 10:22 AM EDT Gender Identity Female 02/10/2023 9:31 AM EDT Sexual Orientation Straight 02/10/2023 9: 31 AM EDT Plan of Treatment Health Maintenance Due Date Last Done Comments Depression Screening 1994 HIV Screening 1994 SDOH Screening 1994 Alcohol/Substance Use Screening 2006 Tobacco Screening 2006 Family Planning (PISQ) 2009 Hepatitis C Screening 2012 DTaP/Tdap/Td Vaccines (1 - Tdap) 2013 Hepatitis B Vaccines (1 of 3 - 19+ 3-dose series) 2013 Pap Smear 2015 COVID-19 Vaccine ( - 2023-2 5 season) 2024 Influenza Vaccine (#1) 2024 Cervical Cancer Screening 2024 HPV/Cotest 2024 Zoster Vaccines (1 of 2) 2044 RSV Patients and Pa tients Aged 60 years or older (1 - 1-dose 75+ series) 2069 HIB Vaccines Aged Out No longer eligi ble based on patient's age to complete this topic HPV Vaccines Aged Out No longer eligi ble based on patient's age to complete this topic Hepatitis A Vaccines Aged Out No long er eligible based on patient's age to complete this topic IPV Vaccines Aged Out No longer eligi ble based on patient's age to complete this topic Meningococcal Vaccine Aged Out No fior magdaleno eligible based on patient's age to complete this topic Pneumococcal Vaccine: Pediat rics (0 to 5 Years) and At-Risk Patients (6 to 49) Years) Aged Out No longer eligible b ased on patient's age to complete this topic RSV under 20 months Aged Out No longe r eligible based on patient's age to complete this topic Rotavirus Vaccines Aged Out No longer eligible based on patient's age to complete this topic [facility]
== END 2024-10-20 09:41 | disposition home or self-care (01) ==
LOC: HO.HWS 08:45
PROVIDERS: Visit Provider Advanced Practice Midwife
DX: Z30.42 Encounter for surveillance of injectable contraceptive (principal)

== ENCOUNTER → 2024-10-20 08:45 | Outpatient (BNVA) | payer OTHER, SELFPAY | PROVIDERS: Visit Provider Advanced Practice Midwife | DX: Z30.42 Encounter for surveillance of injectable contraceptive (principal) | CPT/HCPCS: 96372; J1050 ==

== ENCOUNTER 2024-12-30 13:57 | Outpatient (AMB) | payer OTHER, SELFPAY ==
--- NOTE | 2024-12-30 14:14 | A.OFFVIS_ITS ---
Vital Signs 12/30/24 14:15 Height 5 ft 2 in Weight 192 lb BMI 35.1 BP 104/62 Intake Visit Reasons: change control consult Marine Fisheries Technician Required: Yes Marine Fisheries Technician Language: Soda Maker Name: Serge [id number] Information Interpreted: non-clinical & clinical Owner Operator Tanker Truck Driver: Owner Operator Tanker Truck Driver Present Allergies aspirin Allergy (Unknown, Verified 12/30/24 14:15) Unknown Penicillins Allergy (Unknown, Verified 12/30/24 14:15) Unknown Is last menstrual period known: Yes HPI Comments Details: Patient is here today for a control consults. Currently on Depo last injection 10/20/2024. She desires to change to control pills. She denies any contraindications to control such as: migraines with aura, history of DVT or pulmonary emboli, high blood pressure, liver disease, thrombolic disorders, Lupus, +COLE, breast cancer, or smoking. [facility] Social History Household Members: Significant Other and Children Housing: Apartment Alcohol intake: former Patient Tobacco Use Status: Never used Tobacco Agree to transfusion: Yes Sexual orientation: Straight/Heterosexual Gender identity: Female Female Reproductive History Menstrual Age of Menarche: 14 control method: progesterone injection (Depo 10/20/24) Review of Systems Const All systems reviewed & are unremarkable except as noted in HPI and below Endo Reports no additional complaints Physical Exam Vital Signs: Last Vital Signs BP 104/62 12/30/24 14:15 BMI result Body Mass Index 35.1 Const General: cooperative, healthy appearing and no acute distress Psych Appearance: well kempt Attitude: cooperative Thought process: Normal thought process present Assessment & Plan Assessment & Plan (1) Counseling for initiation of control method: Code(s): Z30.09 - Encounter for other general counseling and advice on contraception Plan Discussed: control pill options cycling monthly or extended dose packs. Use of Internet photos to describe types of packs and start dates. Prefer to use extended pack. Next Depo was due earliest January 05. Start of pill: within 5 days of a normal menses, if greater than that, use a back up method or abstain for 7 days. Also may start if NO unprotected intimacy since the last normal menses (use a back up method for seven days)9. How to take: Take at the same time of day. Take with food if nausea occurs, and closer to bedtime may be helpful. What to do when missing a pill or taking one late: take as soon as you remember, and use a back up method (condoms, or abstinence is required) for 7 days. Side effects: break through bleeding, nausea, mood changes, breast tenderness, headaches, bloating. Most of these all resolve in the first 2-3 months of use. Warnings: serious complications from the pill associated with a DVT (deep viem thrombosis), risks to stroke, PE (pulmonary emboli), potentially fatal. Report any serious side effects: call 911 and seek medical emergenct treatment for any ACHES . Abdominal pain (sever). Chest pain (difficulty breathing). Headache (severe). Extremity pain(sudden pain in one extermity). Sudden blindness/loss of vision. Report any medical changes to our office so that we can determine if the pill is an appropriate method for continued use. Keep all follow up appointments for pill use surveilance as directed. The patient expressed understanding and agreement with the plan of care. All of her questions and concerns were addressed to the best of my ability. Total time I personally spent on visit and management today: ?30 minutes. Time spent included review of pertinent office notes in the electronic health record; review of laboratory and imaging results; review of personal family medical history; performing physical exam; discussing diagnosis and plan of care with the patient; documenting the encounter in the EMR. This note is constructed using voice recognition software. While every effort has been made to ensure accuracy, shank paperer errors may have been included. Medications: New levonorgestrel-ethinyl estrad 0.15 mg-30 mcg (91) (Jolessa) 1 tab PO ONCE 91 ea 0RF Discontinued medroxyprogesterone (Depo-Provera) to be given q 12 weeks, as reviewed Discontinued Reason: More recent result 150 mg IM Q12W 1 mL 5RF Coding Level of Care Code Est Pt Level 3 (95130) Diagnoses Counseling for initiation of control method Z30.09
[2024-12-30 14:15] VITALS: BP 104/62; BMI 35.1
--- OUTSIDE RECORDS SUMMARY | 2024-12-30 16:26 | XMS_ITS | Clinical Summary ---
Author Organization [employer] Address [address] [place] [address] Care Team Providers Care Irradiated Fuel Handler Name Role Phone Unavailable Primary Care Provider [...] 1994 HIV Screening 1994 SDOH Screening 1994 Disability Screening 1994 Alcohol/Substance Use Screening 2006 Tobacco Screening 2006 Family Planning (PISQ) 2009 Hepatitis C Screening 2012 DTaP/Tdap/Td Vaccines (1 - Tdap) 2013 Hepatitis B Vaccines (1 of 3 - 19+ 3-dose series) 2013 Pap Smear 2015 COVID-19 Vaccine ( - 2023-2 5 season) 2024 Cervical Cancer Screening 2024 HPV/Cotest 2024 Influenza Vaccine (Season Ended) 2025 Zoster Vaccines (1 of 2) 2044 RSV [...] patient's age to complete this topic Meningococcal B Vaccine Aged Out No l onger eligible based on patient's age to complete [...] patient's age to complete this topic [place] [address] [place] [address] C3
== END 2024-12-30 15:03 | disposition home or self-care (01) ==
LOC: HO.HWS 13:57
PROVIDERS: Visit Provider Advanced Practice Midwife
DX: Z30.09 Encounter for other general counseling and advice on contraception (principal)
CPT/HCPCS: 99213

== ENCOUNTER → 2024-12-30 13:57 | Outpatient (BNVA) | payer OTHER, SELFPAY | PROVIDERS: Visit Provider Advanced Practice Midwife | DX: Z30.09 Encounter for other general counseling and advice on contraception (principal) | CPT/HCPCS: 99212 ==

== ENCOUNTER 2025-03-31 09:48 | Outpatient (AMB) | payer OTHER, SELFPAY ==
--- NOTE | 2025-03-31 09:49 | MHC.OFFVIS ---
Vital Signs 03/31/25 09:52 Height 5 ft 2 in Weight 188 lb BMI 34.4 BP 106/66 Blood Pressure Location Rt brachial Position Sitting Intake Visit Reasons: 2.5 pill check/30 mins Intake Note: Here to follow up on ocp started taking 01/05/25 before Ocp was using depo provera Fountain Pen Nibs Inspector Services: Fountain Pen Nibs Inspector Present (voice machine) Information Interpreted: non-clinical & clinical Basting Puller: Basting Puller Present Allergies aspirin Allergy (Unknown, Verified 03/31/25 09:57) Unknown Penicillins Allergy (Unknown, Verified 03/31/25 09:57) Unknown Medication List - Last Reconciled 03/31/25 by Richa Mensah LPN levonorgestrel-ethinyl estrad 0.15 mg-30 mcg (91) (Jolessa) 1 tab PO ONCE Is last menstrual period known: Yes Do you need a note to return to daycare/school/sports/work: No HPI Comments Details: Patient is today for a follow up pill check. She reports doing well on her control pills and has no concerns today. She denies any contraindications to control such as: migraines with aura, history of DVT or pulmonary emboli, high blood pressure, liver disease, thrombolic disorders, Lupus, +COLE, breast cancer, or smoking. [facility] Medical History Oral contraceptive use Social History Household Members: Significant Other and Children Both parents involved: Yes Housing: Apartment Alcohol intake: former Patient Tobacco Use Status: Never used Tobacco Agree to transfusion: Yes Sexual orientation: Straight/Heterosexual Gender identity: Female Female Reproductive History Menstrual Age of Menarche: 14 control method: pills Review of Systems Const All systems reviewed & are unremarkable except as noted in HPI and below Endo Reports no additional complaints Physical Exam Vital Signs: Last Vital Signs BP 106/66 03/31/25 09:52 BMI result Body Mass Index 34.4 Const General: cooperative, healthy appearing and no acute distress Psych Appearance: well kempt Attitude: cooperative Thought process: Normal thought process present Assessment & Plan Assessment & Plan (1) Surveillance for control, oral contraceptives: Code(s): Z30.41 - Encounter for surveillance of contraceptive pills Plan Continue with OCP use call if there is any concerns. control hormone use warnings: go to ER if and loss of vision, blindness, severe headache, chest pain or difficulty breathing, severe abdominal pain, or any pain or swelling in an extremity. Schedule annual exam for June 2025. The patient expressed understanding and agreement with the plan of care. All of her questions and concerns were addressed to the best of my ability. This note is constructed using voice recognition software. While every effort has been made to ensure accuracy, heat treat worker errors may have been included. Medications: Refilled levonorgestrel-ethinyl estrad 0.15 mg-30 mcg (91) (Katelyna) 1 tab PO ONCE 91 ea 1RF Coding Level of Care Code Est Pt Level 3 (18437) Diagnoses Surveillance for control, oral contraceptives Z30.41
[2025-03-31 09:52] VITALS: BP 106/66; BMI 34.4
--- OUTSIDE RECORDS SUMMARY | 2025-03-31 11:36 | XMS_ITS | Clinical Summary ---
Author Organization [employer] Address [address] [place] [address] Care Team Providers Care Multiple Sclerosis Nurse Name Role Phone Unavailable Primary Care Provider [...] Tobacco Screening 2006 Family Planning (PISQ) 2009 HPV Vaccines (1 - 3-dose series) 2009 Hepatitis C Screening 2012 DTaP/Tdap/Td Vaccines (1 - Tdap) 2013 Hepatitis B Vaccines (1 of 3 - 19+ 3-dose series) 2013 Pap Smear 2015 Cervical Cancer Screening 2024 HPV/Cotest 2024 COVID-19 Vaccine (1 - 2023-2 5 season) 2025 Influenza Vaccine (#1) 2025 Zoster Vaccines (1 of 2) 2044 [...] Years) and At-Risk Patients (6 to 49) Years Aged Out No longer eligible b ased on patient's age to complete this topic RSV under 20 months Aged Out No longe r eligible based on patient's age to complete this topic Rotavirus Vaccines Aged Out No longer eligible based on patient's age to complete this topic Insurance [facility] C3
== END 2025-03-31 10:20 | disposition home or self-care (01) ==
LOC: HO.HWS 09:48
PROVIDERS: Visit Provider Advanced Practice Midwife
DX: Z30.41 Encounter for surveillance of contraceptive pills (principal)
CPT/HCPCS: 99213

== ENCOUNTER → 2025-03-31 09:48 | Outpatient (BNVA) | payer OTHER, SELFPAY | PROVIDERS: Visit Provider Advanced Practice Midwife | DX: Z30.41 Encounter for surveillance of contraceptive pills (principal) | CPT/HCPCS: 99212 ==

== ENCOUNTER 2025-07-20 08:38 | Outpatient (AMB) | payer OTHER, SELFPAY ==
--- OUTSIDE RECORDS SUMMARY | 2025-07-20 08:41 | XMS_ITS | Clinical Summary ---
Author Organization [employer] Address [address] [place] [address] [address] [place] [address] Care Team Providers Care Stationary Steam Engineer Name Role Phone Unavailable Primary Care Provider [...] 2024 HPV/Cotest 2024 COVID-19 Vaccine (1 - 2024-2 6 season) 2025 Influenza Vaccine (#1) 2025 Zoster [...] patient's age to complete this topic Insurance [facility] C3
[2025-07-20 08:50] VITALS: BP 106/68; BMI 35.1
--- NOTE | 2025-07-20 08:50 | A.OFFVIS_ITS ---
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: Centerless Grinder Operator offered & declined Allergies aspirin Allergy (Unknown, Verified 07/20/25 08:52) Unknown Penicillins Allergy (Unknown, Verified 07/20/25 08:52) Unknown Medication List - Last Reconciled 07/20/25 by Marla Emanuel CNM levonorgestrel-ethinyl estrad 0.15 mg-30 mcg (91) (Jolessa) 1 tab PO ONCE Is last menstrual period known: Yes (04/26/25) HPI Comments Details: Pt is informed of [facility] daley listening for clinical documentation and agrees to its use during the visit The patient is a 30 year old female 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 She reports a history of anemia during a previous She is in a relationship x 3yr. She denies any issues of DV. she agrees to GC/ Ct screening Exercise: limited Nutrition/calcium: high cho, limited calcium Contraception: BCP- requests refill Last Pap: 2022 , Results: insufficient cells Last mammo: n/a, PFSH Medical History Bilateral hydronephrosis Oral contraceptive use Surgical History (Updated 07/20/25 @ 09:52 by Marla Emanuel CNM) No pertinent past surgical history Family History (Updated 07/20/25 @ 09:13 by Marla Emanuel CNM) Father No problems noted. Mother No problems noted. Sister No problems noted. Sister No problems noted. Social History (Updated 07/20/25 @ 09:53 by Marla Emanuel CNM) Household Members: Significant Other and Children Household Members Other:: boyfriend x3 yrs Housing: Apartment Alcohol intake: former Patient Tobacco Use Status: Never used Tobacco Agree to transfusion: Yes Current occupational status: employed Current occupation: [employer] Sexual orientation: Straight/Heterosexual Gender identity: Female Female Reproductive History Menstrual Age of Menarche: 14 Duration of menses: 6-7 days control method: pills Total pregnancies: 3 Number of Living Children: 3 Date of last pap smear: 07/01/23 (unsatisfactory) Review of Systems Const Reports as per HPI, Reports fatigue and Reports lethargy Eyes Reports no additional complaints ENT Reports no additional complaints Card Reports no additional complaints Resp Reports no additional complaints GI Reports no additional complaints Reports as per HPI Skin/Breast Reports system reviewed and no additional complaints, except as documented Endo Reports fatigue Physical Exam Vital Signs: Last Vital Signs BP 106/68 07/20/25 08:50 BMI result Body Mass Index 35.1 Const General: cooperative, healthy appearing and no acute distress Orientation/consciousness: patient oriented x3 HEENT Head: Yes normal to inspection and Yes normocephalic Ears: external ears normal General nose exam: No nasal discharge present Neck Neck: Yes normal visual inspection Chest Breast/axilla inspection: normal inspection of the breasts, normal inspection of the axillae and Other (No skin changes, peau d orange, or nipple discharge noted) Breast/axilla palpation: normal palpation of the breasts, normal palpation of the axillae and no axillary lymphadenopathy Resp Effort & Inspection: normal respiratory effort and able to speak in complete sentences GI Inspection: No distended Palpation (GI): Soft to palpation, nontender and no masses Percussion: Yes normal to percussion Rectal Exam - Female: No External hemorrhoid(s) present External Female Exam: normal external appearance and normal appearance of the urethra Speculum Exam - Vagina: normal appearance of the vagina and normal vaginal discharge Speculum Exam - Cervix: normal appearance of the cervix and normal palpation (neg CMT) Bimanual exam- vagina & uterus: normal bimanual exam, normal palpation (neg CMT), uterine mobility normal and non-tender Bimanual Exam- Adnexa, other: no masses and No adnexal tenderness Skin General skin exam: no rashes or lesions noted Neuro General: patient oriented x3 and moves all extremities Extrem General: Yes full ROM Psych Speech and movement: Normal speech and movement present Affect: normal affect Attitude: cooperative Thought process: Normal thought process present Assessment & Plan Assessment & Plan (1) Well woman exam with routine gynecological exam: Code(s): Z01.419 - Encounter for gynecological examination (general) (routine) without abnormal findings (2) Screening breast examination: Code(s): Z12.39 - Encounter for other screening for malignant neoplasm of breast (3) Screening for malignant neoplasm of cervix: Code(s): Z12.4 - Encounter for screening for malignant neoplasm of cervix (4) Language barrier: Code(s): Z60.3 - Acculturation difficulty; Z75.8 - Other problems related to medical facilities and other health care (5) Fatigue: Code(s): R53.83 - Other fatigue Qualifiers: Fatigue type: unspecified Qualified Code(s): R53.83 - Other fatigue Plan: The patient complains of fatigue and sleepiness, with a history of anemia during . To further evaluate, we will check her hemoglobin for anemia and also check her thyroid function. Enc iron rich diet, list provided (6) Encounter for screening examination for sexually transmitted infection: Code(s): Z11.3 - Encounter for screening for infections with a predominantly sexual mode of transmission (7) Encounter for surveillance of contraceptive pills: Code(s): Z30.41 - Encounter for surveillance of contraceptive pills Plan During the visit, the following areas of concern were addressed: Monitoring of the menstrual cycle Regular exercise Healthy lifestyle STD strategies to avoid exposure Domestic violence Health Maintenance and Screening -Reviewed ASCCP guidelines for Paps and yearly (bi-yearly ) pelvic exam. -Reviewed and encouraged diet and exercise for cardiovascular and bone health -Reviewed breast self-awareness. Importance of yearly mammogram after age 40 (earlier if first-degree relative with breast cancer at a younger age ) Discuss use of 3 times per week weight-bearing exercise, vitamin D3 and servings of dietary calcium daily for bone health. -continue to follow with PCP for general medical care, immunizations. Family and personal history of cancer reviewed. Genetic screening- not indicated The patient has BMI: 35 Approaches towards weight loss are discussed including burning more calories than one takes in by frequent, small meals, portion control, avoiding eating before bedtime, regular exercise with an emphasis on duration rather than intensity, strength training exercise, referral to hospitality intern or to weight loss management center upon patient request. RTO one year or sooner stephanie Emanuel CNM Note about provider documentation : If you or the patient named in this chart and are reviewing your medical notes, please note that medical documentation is often written with abbreviations and medical terminology, and directed for other providers who may be involved in your care as well. Documentation is critical to record what has happened, what tests were ordered, and so they are interpreted with the resulting diagnoses. These notes have been made available for patient review but not specifically written for the patient. Important health information is always given to my patients in clinical instructions. Please review your after visit summary and our contact our clinical staff if you have any questions. Orders: Orders Complete Blood Count Auto Diff Today R53.83 - Other fatigue, Z01.419 - Encounter for gynecological examination (general) (routine) without abnormal findings Pap Smear Today Z01.419 - Encounter for gynecological examination (general) (routine) without abnormal findings, Z12.4 - Encounter for screening for malignant neoplasm of cervix TSH reflex Free T4 Today R53.83 - Other fatigue, Z01.419 - Encounter for gynecological examination (general) (routine) without abnormal findings CT NG by PCR Vag/Cerv Today Z01.419 - Encounter for gynecological examination (general) (routine) without abnormal findings, Z11.3 - Encounter for screening for infections with a predominantly sexual mode of transmission Medications: Refilled levonorgestrel-ethinyl estrad 0.15 mg-30 mcg (91) (Jolessa) 1 tab PO ONCE 91 ea 1RF Coding Level of Care Code Est Pt Prev Care 18-39y(02223) Diagnoses Well woman exam with routine gynecological exam Z01.419 Screening breast examination Z12.39 Screening for malignant neoplasm of cervix Z12.4 Language barrier Z60.3; Z75.8 Fatigue, unspecified type R53.83 Fatigue type: unspecified Encounter for screening examination for sexually transmitted infection Z11.3 Encounter for surveillance of contraceptive pills Z30.41
== END 2025-07-20 09:35 | disposition home or self-care (01) ==
LOC: HO.HWSM 08:38
PROVIDERS: Visit Provider Advanced Practice Midwife
DX: Z01.419 Encounter for gynecological examination (general) (routine) without abnormal findings (principal); Z12.39 Encounter for other screening for malignant neoplasm of breast; Z12.4 Encounter for screening for malignant neoplasm of cervix; Z60.3 Acculturation difficulty; Z75.8 Other problems related to medical facilities and other health care; R53.83 Other fatigue; Z11.3 Encounter for screening for infections with a predominantly sexual mode of transmission; Z30.41 Encounter for surveillance of contraceptive pills
CPT/HCPCS: 99395; 99459

== ENCOUNTER 2025-07-20 08:38 | Outpatient (REF) | payer OTHER, SELFPAY ==
[2025-07-25 16:06] LABS: CT PCR NOT DETECTED (Not Detect.); NG PCR NOT DETECTED (Not Detect.)
== END 2025-07-20 08:39 | disposition home or self-care (01) ==
LOC: HO.LNP 08:38
PROVIDERS: Visit Provider Advanced Practice Midwife
DX: Z01.419 Encounter for gynecological examination (general) (routine) without abnormal findings (principal); Z12.39 Encounter for other screening for malignant neoplasm of breast; Z11.3 Encounter for screening for infections with a predominantly sexual mode of transmission; Z30.41 Encounter for surveillance of contraceptive pills; Z11.51 Encounter for screening for human papillomavirus (HPV); R53.83 Other fatigue; Z60.3 Acculturation difficulty; Z75.8 Other problems related to medical facilities and other health care; Z79.3 Long term (current) use of hormonal contraceptives
CPT/HCPCS: 87494; 87626; 88175; 99395

== ENCOUNTER 2025-07-20 09:31 | Outpatient (REF) | payer OTHER, SELFPAY ==
[2025-07-20 11:39] LABS: MANUAL DIFF FLAG NO
[2025-07-20 11:43] LABS: Hematocrit 42.2 % (37.0-47.0); Hemoglobin 13.8 g/dl (12.0-16.0); Imm Gran Abs Auto 0.03 X10*3/uL (0.00-0.03); Imm Gran Pct Auto 0.3 % (0.0-0.4); Lymphocytes Absolute Auto 2.4 X10*3/uL (1.2-4.9); Mean Corpuscular HGB Conc 32.7 g/dl (31.0-35.0); Mean Corpuscular Hemoglobin 28.1 pg (27.0-33.0); Mean Corpuscular Volume 85.9 fL (80.0-98.0); NRBC Abs Auto 0.000 X10*3/uL (0.0-0.012); NRBC Pct Auto 0.0 /100WBC (0.0-0.2); Platelet Count 382 X10*3/uL (160-400); Red Blood Count 4.91 X10*6/uL (4.20-5.50); White Blood Count 10.1 X10*3/uL (4.8-10.8)
== END 2025-07-20 09:32 | disposition home or self-care (01) ==
LOC: HO.HHCL 09:31
PROVIDERS: Visit Provider Advanced Practice Midwife
DX: Z01.419 Encounter for gynecological examination (general) (routine) without abnormal findings (principal); R53.83 Other fatigue
CPT/HCPCS: 36415; 84443; 85025